=== PATIENT | female | born 1945 | race Caucasian/White ===

== ENCOUNTER → 2016-03-09 | Outpatient (CLI) | payer OTHER, BC ==
[~2016-03-09] MED LIST: ATOR-22 PO; ATOR-24 PO; PARO1TAB29 PO; SYN137 PO
== END | disposition home or self-care (01) ==
LOC: C.LABSPEC 15:13
PROVIDERS: ATTEND Family Medicine
DX: R31.9 Hematuria, unspecified (principal)

== ENCOUNTER → 2016-04-06 | Outpatient (CLI) | payer OTHER, BC | END | disposition home or self-care (01) | LOC: C.LABSPEC 13:00 | PROVIDERS: ATTEND Family Medicine | DX: R31.9 Hematuria, unspecified (principal) ==

== ENCOUNTER → 2016-04-18 | Outpatient (CLI) | payer OTHER, BC | END | disposition home or self-care (01) | LOC: C.LABSPEC 13:15 | PROVIDERS: ATTEND Family Medicine | DX: R31.9 Hematuria, unspecified (principal) ==

== ENCOUNTER → 2016-07-03 | Outpatient (CLI) | payer OTHER, BC ==
[2016-07-03 13:23] LABS: BASO % 0.3 %; BASO ABS # 0.02 K/uL (0-0.2); COMPLETE YES; EOS % 3.5 %; HEMATOCRIT 41.6 % (37-47); IG% 0.2 %; LYMPH % 41.1 %; LYMPH ABS # 2.73 K/uL (1.2-3.4); MEAN CELL VOLUME 90.2 fL (80-100); MEAN CORPUSCULAR HEMOGLOBIN 28.6 pg (25-34); MEAN CORPUSCULAR HGB CONC 31.7 g/dl (32-36); MONO % 10.1 %; NEUT % 44.8 %; PLATELET COUNT 271 K/uL (130-400); RED BLOOD COUNT 4.61 M/uL (4.2-5.4); WHITE BLOOD COUNT 6.65 K/uL (4.8-10.8)
[2016-07-03 13:48] LABS: ALT/SGPT 14 U/L (12-78); AST/SGOT 13 U/L (15-37); BLOOD UREA NITROGEN 14 mg/dl (7-18); BUN/CREATININE RATIO 18.4 (10-20); CARBON DIOXIDE 27 mmol/L (21-32); CHLORIDE 107 mmol/L (98-107); CHOLESTEROL 177 mg/dl (0-200); CREATININE 0.74 mg/dl (0.60-1.20); GLUCOSE 92 mg/dl (70-99); POTASSIUM 4.8 mmol/L (3.5-5.1); SODIUM 141 mmol/L (136-145); TRIGLYCERIDES 139 mg/dl (0-150); VERY LOW DENSITY LIPOPROT CALC 28 mg/dl
[2016-07-03 13:50] LABS: CALCIUM 9.3 mg/dl (8.5-10.1)
[2016-07-03 14:11] LABS: ALKALINE PHOSPHATASE 95 U/L (45-117); CHOLESTEROL/HDL RATIO 3.8; HDL CHOLESTEROL 47 mg/dl; LDL CHOLESTEROL CALCULATED 102 mg/dl; THYROID STIMULATING HORMONE 0.323 uIu/ml (0.300-4.500)
== END | disposition home or self-care (01) ==
LOC: C.LABSPEC 12:41
PROVIDERS: ATTEND Family Medicine
DX: E78.2 Mixed hyperlipidemia (principal); E03.9 Hypothyroidism, unspecified; J44.9 Chronic obstructive pulmonary disease, unspecified

== ENCOUNTER → 2016-07-09 | Outpatient (CLI) | payer OTHER, BC | END | disposition home or self-care (01) | LOC: C.LABSPEC 12:56 | PROVIDERS: ATTEND Family Medicine | DX: M54.5 Low back pain (principal); R39.11 Hesitancy of micturition ==

== ENCOUNTER → 2016-07-27 | Outpatient (CLI) | payer OTHER, BC ==
[2016-07-27 13:51] LABS: BASO % 0.2 %; BASO ABS # 0.02 K/uL (0-0.2); COMPLETE YES; EOS % 1.2 %; HEMATOCRIT 39.6 % (37-47); IG% 0.2 %; LYMPH ABS # 3.15 K/uL (1.2-3.4); MEAN CELL VOLUME 90.4 fL (80-100); MEAN CORPUSCULAR HEMOGLOBIN 29.5 pg (25-34); MEAN CORPUSCULAR HGB CONC 32.6 g/dl (32-36); MEAN PLATELET VOLUME 10.2 fL (7.4-10.4); MONO % 9.5 %; NEUT % 62.9 %; PLATELET COUNT 312 K/uL (130-400); RED BLOOD COUNT 4.38 M/uL (4.2-5.4); WHITE BLOOD COUNT 12.13 K/uL (4.8-10.8)
[2016-07-27 14:50] LABS: ALT/SGPT 43 U/L (12-78); BLOOD UREA NITROGEN 13 mg/dl (7-18); BUN/CREATININE RATIO 14.2 (10-20); CARBON DIOXIDE 24 mmol/L (21-32); CHLORIDE 103 mmol/L (98-107); CREATININE 0.92 mg/dl (0.60-1.20); GLUCOSE 90 mg/dl (70-99); POTASSIUM 4.1 mmol/L (3.5-5.1); SODIUM 136 mmol/L (136-145)
[2016-07-27 14:55] LABS: ALB/GLOB RATIO 0.6 (0.9-2); ALKALINE PHOSPHATASE 166 U/L (45-117); AST/SGOT 48 U/L (15-37)
[2016-07-27 14:56] LABS: CALCIUM 9.2 mg/dl (8.5-10.1)
== END | disposition home or self-care (01) ==
LOC: C.LABSPEC 13:13
PROVIDERS: ATTEND Family Medicine
DX: R05 Cough (principal); R06.02 Shortness of breath

== ENCOUNTER → 2016-08-01 | Outpatient (CLI) | payer OTHER, BC | END | disposition home or self-care (01) | LOC: C.LABSPEC 14:13 | PROVIDERS: ATTEND Family Medicine | DX: R30.0 Dysuria (principal) ==

== ENCOUNTER → 2016-11-15 | Outpatient (CLI) | payer OTHER, BC | END | disposition home or self-care (01) | LOC: C.LABSPEC 13:35 | PROVIDERS: ATTEND Family Medicine | DX: M54.5 Low back pain (principal) ==

== ENCOUNTER → 2017-01-03 | Outpatient (CLI) | payer OTHER, BC ==
[2017-01-03 12:54] LABS: BASO % 0.2 %; BASO ABS # 0.02 K/uL (0-0.2); COMPLETE YES; EOS % 2.7 %; HEMATOCRIT 40.9 % (37-47); IG% 0.1 %; LYMPH % 42.1 %; LYMPH ABS # 3.47 K/uL (1.2-3.4); MEAN CELL VOLUME 90.1 fL (80-100); MEAN CORPUSCULAR HEMOGLOBIN 29.1 pg (25-34); MEAN CORPUSCULAR HGB CONC 32.3 g/dl (32-36); MEAN PLATELET VOLUME 9.5 fL (7.4-10.4); MONO % 8.1 %; NEUT % 46.8 %; PLATELET COUNT 241 K/uL (130-400); RED BLOOD COUNT 4.54 M/uL (4.2-5.4); WHITE BLOOD COUNT 8.25 K/uL (4.8-10.8)
== END | disposition home or self-care (01) ==
LOC: C.LABSPEC 12:31
PROVIDERS: ATTEND Family Medicine
DX: E03.9 Hypothyroidism, unspecified (principal); E78.2 Mixed hyperlipidemia; J44.9 Chronic obstructive pulmonary disease, unspecified

== ENCOUNTER → 2017-01-04 | Outpatient (CLI) | payer OTHER, BC ==
[2017-01-04 13:44] LABS: ALT/SGPT 18 U/L (12-78); BLOOD UREA NITROGEN 19 mg/dl (7-18); BUN/CREATININE RATIO 20.8 (10-20); CARBON DIOXIDE 27 mmol/L (21-32); CHLORIDE 104 mmol/L (98-107); CHOLESTEROL 184 mg/dl (0-200); GLUCOSE 98 mg/dl (70-99); POTASSIUM 4.1 mmol/L (3.5-5.1); SODIUM 139 mmol/L (136-145); TRIGLYCERIDES 212 mg/dl (0-150); VERY LOW DENSITY LIPOPROT CALC 42 mg/dl
[2017-01-04 13:55] LABS: ALB/GLOB RATIO 0.9 (0.9-2); ALKALINE PHOSPHATASE 145 U/L (45-117); AST/SGOT 17 U/L (15-37); CHOLESTEROL/HDL RATIO 3.8; HDL CHOLESTEROL 49 mg/dl; LDL CHOLESTEROL CALCULATED 93 mg/dl
== END | disposition home or self-care (01) ==
LOC: C.LABSPEC 12:45
PROVIDERS: ATTEND Family Medicine
DX: E03.9 Hypothyroidism, unspecified (principal); E78.2 Mixed hyperlipidemia; J44.9 Chronic obstructive pulmonary disease, unspecified

== ENCOUNTER → 2017-07-05 | Outpatient (CLI) | payer OTHER, BC ==
[2017-07-05 13:59] LABS: BASO % 0.3 %; BASO ABS # 0.02 K/uL (0-0.2); HEMOGLOBIN 13.4 g/dL (12.0-16.0); IG# 0.01 K/uL (0.00-0.02); LYMPH % 40.9 %; LYMPH ABS # 2.71 K/uL (1.2-3.4); MEAN CELL VOLUME 90.7 fL (80-100); MEAN CORPUSCULAR HEMOGLOBIN 29.6 pg (25-34); MEAN CORPUSCULAR HGB CONC 32.7 g/dl (32-36); MEAN PLATELET VOLUME 9.8 fL (7.4-10.4); MONO % 8.4 %; MONO ABS # 0.56 K/uL (0.11-0.59); NEUT % 47.2 %; NEUT ABS # 3.13 K/uL (1.4-6.5); PLATELET COUNT 272 K/uL (130-400); RED CELL DISTRIBUTION WIDTH CV 13.7 % (11.5-14.5); RED CELL DISTRIBUTION WIDTH SD 45.1 fL (36.4-46.3); WHITE BLOOD COUNT 6.63 K/uL (4.8-10.8)
[2017-07-05 14:24] LABS: ALBUMIN 3.5 gm/dl (3.4-5.0); ALKALINE PHOSPHATASE 113 U/L (45-117); ALT/SGPT 15 U/L (12-78); AST/SGOT 20 U/L (15-37); BLOOD UREA NITROGEN 16 mg/dl (7-18); CALCIUM 8.7 mg/dl (8.5-10.1); CARBON DIOXIDE 26 mmol/L (21-32); CHOLESTEROL 194 mg/dl (0-200); CREATININE 0.92 mg/dl (0.60-1.20); GLUCOSE 92 mg/dl (70-99); LDL CHOLESTEROL CALCULATED 111 mg/dl; POTASSIUM 4.1 mmol/L (3.5-5.1); SODIUM 138 mmol/L (136-145); TOTAL PROTEIN 7.5 gm/dl (6.4-8.2)
== END | disposition home or self-care (01) ==
LOC: C.LABSPEC 12:48
PROVIDERS: ATTEND Family Medicine
DX: E78.2 Mixed hyperlipidemia (principal); J44.9 Chronic obstructive pulmonary disease, unspecified; E03.9 Hypothyroidism, unspecified

== ENCOUNTER 2022-10-10 05:13 | Observation (INO) ==
--- NOTE | 2022-09-25 12:44 | PAT Medication Instructions ---
Medication Instructions Date of Service September 25, 2022 Home Medications albuterol sulfate 90 mcg/actuation aerosol inhaler 1 inh inhalation QID PRN sob azithromycin 500 mg tablet 500 mg PO 3XWK calcium carbonate 600 mg-vitamin D3 5 mcg (200 unit) tablet 1 tab PO BID fluticasone propionate 230 mcg-salmeterol 21 mcg/actuation HFA inhaler (Advair HFA) 2 puff inhalation BID levothyroxine 100 mcg tablet (Synthroid) 100 mcg PO QAM lisinopril 10 mg tablet 10 mg PO QAM lovastatin 20 mg tablet 20 mg PO QAM prednisone 10 mg tablet 10 mg PO QAM teriparatide 20 mcg/dose (600 mcg/2.4 mL) subcutaneous pen injector (Forteo) 20 mcg subcut QPM umeclidinium 62.5 mcg/actuation blister powder for inhalation (Incruse Ellipta) 1 inh inhalation QAM venlafaxine 75 mg tablet,extended release 24 hr 75 mg PO QAM Continue as directed azithromycin 500 mg tablet 500 mg PO 3XWK ASK your prescriber and surgeon teriparatide 20 mcg/dose (600 mcg/2.4 mL) subcutaneous pen injector (Forteo) 20 mcg subcut QPM DO NOT take the morning of surgery calcium carbonate 600 mg-vitamin D3 5 mcg (200 unit) tablet 1 tab PO BID lisinopril 10 mg tablet 10 mg PO QAM Take morning of surgery With a small sip of water, OTHERWISE NOTHING TO EAT OR DRINK AFTER MIDNIGHT: albuterol sulfate 90 mcg/actuation aerosol inhaler 1 inh inhalation QID PRN sob (use if needed; please bring with you to hospital day of surgery if possible) fluticasone propionate 230 mcg-salmeterol 21 mcg/actuation HFA inhaler (Advair HFA) 2 puff inhalation BID levothyroxine 100 mcg tablet (Synthroid) 100 mcg PO QAM lovastatin 20 mg tablet 20 mg PO QAM prednisone 10 mg tablet 10 mg PO QAM umeclidinium 62.5 mcg/actuation blister powder for inhalation (Incruse Ellipta) 1 inh inhalation QAM venlafaxine 75 mg tablet,extended release 24 hr 75 mg PO QAM Take evening before surgery albuterol sulfate 90 mcg/actuation aerosol inhaler 1 inh inhalation QID PRN sob (if needed) calcium carbonate 600 mg-vitamin D3 5 mcg (200 unit) tablet 1 tab PO BID fluticasone propionate 230 mcg-salmeterol 21 mcg/actuation HFA inhaler (Advair HFA) 2 puff inhalation BID Other Notes If you have any questions please call us at [phone] or [phone] or [phone] or [phone]
--- NOTE | 2022-09-28 11:01 | Anesthesiology Consultation ---
Date of Service September 28, 2022 Assessment & Plan (1) Encounter for pre-operative examination: Chart Review Chart Review: Acceptable Risk for Surgery (pending PCP clearance 10/04/22 with response to CXR findings ) and Patient seen in Pre Admission Testing - Awaiting preop 10/04/22 (Dr. Srini Rubio) - please send optimization form re: abnormal CXR along with preop testing to PCP - Due to age and comorbidities- patient is NOT an ideal OPJ candidate Per PAT appt on 09/28/22, no recent Covid exposures or recent Covid positive tests. Pt had diarrhea and decreased appetite- resolved as of 09/23/22. Will leave to surgeon's discretion if preop Covid testing needed History Surgery Operation Date: 10/10/22 09:50 Proposed Procedures p Left Knee Total Knee Arthroplasty - Tramaine Hewitt MD Height/Weight Height: 5 ft 5.5 in Weight: 90.7 kg Allergies Allergy/AdvReac Type Severity Reaction Status Date / Time No Known Allergies Allergy Unknown Verified 09/25/22 11:06 Medications Home Medications Medication Instructions Recorded Confirmed Last Taken albuterol sulfate 90 mcg/actuation 1 inh inhalation QID PRN sob 09/25/22 09/25/22 Unknown aerosol inhaler azithromycin 500 mg tablet 500 mg PO 3XWK 09/25/22 09/25/22 Unknown calcium carbonate 600 mg-vitamin 1 tab PO DAILY 09/25/22 09/28/22 Unknown D3 5 mcg (200 unit) tablet fluticasone propionate 230 2 puff inhalation BID 09/25/22 09/25/22 Unknown mcg-salmeterol 21 mcg/actuation HFA inhaler (Advair HFA) levothyroxine 100 mcg tablet 100 mcg PO QAM 09/25/22 09/25/22 Unknown (Synthroid) lisinopril 10 mg tablet 10 mg PO QAM 09/25/22 09/25/22 Unknown lovastatin 20 mg tablet 20 mg PO QAM 09/25/22 09/25/22 Unknown prednisone 10 mg tablet 10 mg PO QAM 09/25/22 09/25/22 Unknown teriparatide 20 mcg/dose (600 20 mcg subcut QPM 09/25/22 09/25/22 Unknown mcg/2.4 mL) subcutaneous pen injector (Forteo) umeclidinium 62.5 mcg/actuation 1 inh inhalation QAM 09/25/22 09/25/22 Unknown blister powder for inhalation (Incruse Ellipta) venlafaxine 75 mg tablet,extended 75 mg PO QAM 09/25/22 09/25/22 Unknown release 24 hr Past Medical History Medical History (Updated 10/01/22 @ 09:35 by Josefina Albarran PA-C) Anemia Per records Anxiety Asthma "borderline asthma" well controlled with inhalers. Chronic steroid use Deep vein thrombosis December 2020 in right leg. treated at [facility] with anticoagulants. unknown cause. no longer on anticoagulants. Depression History of Helicobacter pylori infection ~05/2022 has since resolved Hyperlipidemia Hypertension Hypothyroidism Osteoarthritis Pulmonary embolism December 2020 in right lung. treated with anticoagulants and has since resolved. unknown cause, no longer on an anticoagulant Sarcoidosis [facility] pulmonary. reason for the abx treatment 3x weekly. Stable breathing Sleep apnea cpap at night Exercise / Class Metabolic Activity III < 4 Walking/Shop/Light housework (no chest pain or SOB with flat surface ambulation- uses cane for extra support; uses walker at home ) Past Family History Family History Other No family history of adverse response to anesthesia Past Surgical History Surgical History H/O vaginal hysterectomy History of appendectomy History of bladder surgery bladder sling History of bronchoscopy History of cholecystectomy History of colonoscopy History of esophagogastroduodenoscopy (EGD) History of tonsillectomy History of vitrectomy left eye Past Anesthesia History No Hx of Anesthesia Complications and No Family Hx of Anesthesia Complications History of PONV No Hx of PONV and No Hx of Motion Sickness Social History Smoking Status: Former smoker tobacco type: cigarettes Do You Dip or Chew Tobacco: No Smoking End Date: 1983 Hx Alcohol Use: No Hx Substance Use: No substance use type: does not use Review of Systems Patient denies chest pain, shortness of breath, dyspnea on exertion, reflux, cough, wheezing, palpitations. No hx of seizures, stroke, [place]. No hx of blood transfusions Physical Exam Vital Signs VITALS BP 132/72 P 81 TEMP 98.1 SP02 95% RESP 16 Constitutional no acute distress ENMT Mouth: no TMJ clicking Thyromental Distance: < 3.5 Finger Breadths (3.0) Mallampati Class: I Upper and lower full dentures Neck neck extension not limited Respiratory normal respiratory effort; no respiratory distress Auscultation: lungs clear to auscultation bilaterally; no wheezes Cardiovascular Rate/Rhythm: regular rate and regular rhythm Heart Sounds: no murmur Vessels: no carotid bruit Musculoskeletal Spine: + pain with cervical ROM (mild to shoulders ) Extremities: extremities normal to inspection Psychiatric Orientation: alert Lab Results Anesthesia Preop Results Results Anesthesia Widget: WBC 8.19 K/ul (4.8-10.8) 09/28/22 Hgb 11.9 g/dl (12.0-16.0) L 09/28/22 Hct 38.2 % (37.0-47.0) 09/28/22 Plt 310 K/uL (130-400) 09/28/22 Na 138 mmol/L (136-145) 09/28/22 K 4.7 mmol/L (3.5-5.1) 09/28/22 Cl 103 mmol/L (98-107) 09/28/22 CO2 28 mmol/L (21-32) 09/28/22 BUN 23 mg/dl (6-23) 09/28/22 Creat 0.90 mg/dl (0.6-1.2) 09/28/22 Glucose Level 121 mg/dl (70-99(Fasting)) H 09/28/22 PT 10.9 Seconds (9.0-12.0) 09/28/22 PTT 24.3 Seconds (21.0-31.0) 09/28/22 INR 1.0 (0.9-1.1) 09/28/22 Urine Color Yellow 09/28/22 Urine Appearance Clear (Clear) 09/28/22 Urine pH 6.0 (4.5-7.5) 09/28/22 Urine Specific [place] 1.006 (1.000-1.030) 09/28/22 Urine Protein Negative (Negative) 09/28/22 Urine Glucose (UA) Negative (Negative) 09/28/22 Urine Ketones Negative (Negative) 09/28/22 Urine Blood Negative (Negative) 09/28/22 Urine Nitrite Negative (Negative) 09/28/22 Urine Bilirubin Negative (Negative) 09/28/22 Urine Urobilinogen Negative (Negative) 09/28/22 Urine Leukocyte Esterase Negative (Negative) 09/28/22 Blood Type O Positive 09/28/22 Antibody Screen NEGATIVE 09/28/22 Testing Electrocardiogram Date: 09/28/22 Findings: + NSR @ (72bpm ) Normal EKG per cardio Chest X-Ray Date: 09/28/22 FINDINGS: No pneumothorax. No pleural effusions. The cardiac silhouette is top normal in size. There is a mildly tortuous thoracic aorta. The upper lung zones are clear. No evidence for pulmonary edema. Progressive densities within the right middle lobe and lingula. IMPRESSION: 1. Progressive densities within the right middle lobe and lingula. This favors scarring. However, follow-up nonemergent chest CT is recommended to exclude an underlying pulmonary opacity/lesion. 2. This report was called/faxed to the referring physician following dictation. Echocardiogram Date: 01/03/21 EF: 58% LV Function: normal RWMA: + none Other Findings: + diastolic dysfunction (Grade I ) Mild TR
--- NOTE | 2022-09-30 09:07 | History & Physical Report ---
Date of Service September 30, 2022 Assessment & Plan (1) Primary osteoarthritis of left knee: Plan: Treatment discussed with the patient. She has failed conservative measures. She has severe osteoarthritis left knee with a healed stress fracture. She would like to proceed with surgical invention. Risks, benefits and alternatives to surgery including but not limited to infection, DVT, pain, stiffness, need for revision surgery, damage to blood vessels, damage to nerves, PE, , were discussed with the patient and they wish to proceed. Plan for left total knee arthroplasty scheduled for October 10 at [facility] with Dr. Hewitt. We will plan on Xarelto postop for DVT prophylaxis due to history of DVT. Plan on home health PT. All questions answered. Patient follow-up postop. History of Present Illness Chief Complaint: Left knee pain Primary Care Provider: Srini Rubio DO 77-year-old female with past medical history significant for hypertension, asthma, hypothyroid, history of DVT who presents with ongoing left knee pain. Pain is interfering with her daily activities. She has failed conservative measures including bracing and injections. She would like to proceed with surgical intervention. Patient denies headaches, sweats, fevers, chills, double vision, blurred vision, cough, sore throat, dysphagia, chest pain, sob, wheezing, n/v/d/c, numbness, tingling, fatigue, urinary symptoms, mood disorders. ROS positive for left knee pain and stiffness. Allergies Allergy/AdvReac Type Severity Reaction Status Date / Time No Known Allergies Allergy Unknown Verified 09/25/22 11:06 Home Medications Medication Instructions Recorded Confirmed Type albuterol sulfate 90 mcg/actuation 1 inh inhalation QID PRN sob 09/25/22 09/25/22 History aerosol inhaler azithromycin 500 mg tablet 500 mg PO 3XWK 09/25/22 09/25/22 History calcium carbonate 600 mg-vitamin 1 tab PO DAILY 09/25/22 09/28/22 History D3 5 mcg (200 unit) tablet fluticasone propionate 230 2 puff inhalation BID 09/25/22 09/25/22 History mcg-salmeterol 21 mcg/actuation HFA inhaler (Advair HFA) levothyroxine 100 mcg tablet 100 mcg PO QAM 09/25/22 09/25/22 History (Synthroid) lisinopril 10 mg tablet 10 mg PO QAM 09/25/22 09/25/22 History lovastatin 20 mg tablet 20 mg PO QAM 09/25/22 09/25/22 History prednisone 10 mg tablet 10 mg PO QAM 09/25/22 09/25/22 History teriparatide 20 mcg/dose (600 20 mcg subcut QPM 09/25/22 09/25/22 History mcg/2.4 mL) subcutaneous pen injector (Forteo) umeclidinium 62.5 mcg/actuation 1 inh inhalation QAM 09/25/22 09/25/22 History blister powder for inhalation (Incruse Ellipta) venlafaxine 75 mg tablet,extended 75 mg PO QAM 09/25/22 09/25/22 History release 24 hr Past Med/Surg History Medical History Anemia Pt unaware Anxiety Asthma "borderline asthma" well controlled with inhalers. Chronic steroid use Deep vein thrombosis December 2020 in right leg. treated at [facility] with anticoagulants. unknown cause. no longer on anticoagulants. Depression History of Helicobacter pylori infection ~05/2022 has since resolved Hyperlipidemia Hypertension Hypothyroidism Osteoarthritis Pulmonary embolism December 2020 in right lung. treated with anticoagulants and has since resolved. unknown cause, no longer on an anticoagulant Sarcoidosis [facility] pulmonary. reason for the abx treatment 3x weekly. Stable breathing Sleep apnea cpap at night Surgical History H/O vaginal hysterectomy History of appendectomy History of bladder surgery bladder sling History of bronchoscopy History of cholecystectomy History of colonoscopy History of esophagogastroduodenoscopy (EGD) History of tonsillectomy History of vitrectomy left eye Family History Other No family history of adverse response to anesthesia Social History Smoking Status: Former smoker Second Hand Exposure: Yes ( smokes); Do You Dip or Chew Tobacco: No; Hx Alcohol Use: No Hx Substance Use: No Preferred Language: Armenian Communication Ability: Effective Brick Pointer Required: No Beliefs That Will Affect Care: None Current Living Situation: Spouse Feels Safe at Home: Yes Assistive Devices: CPAP, Denture - Upper, Denture - Lower, Glasses, Lift Chair and Walker Review of Systems All systems reviewed & are unremarkable except as noted in HPI & below Physical Exam Constitutional: well developed and well nourished; no acute distress Eyes: PERRL, conjunctivae normal, anicteric sclerae ENMT: external ear and nose normal, oropharynx normal Neck: trachea midline, no thyromegaly Respiratory: normal respiratory effort, lungs clear to auscultation Cardiovascular: RRR, no murmur, no edema Musculoskeletal: Left knee: Varus alignment. Mild effusion. Tenderness medial joint line. There is crepitation range of motion. Range of motion is 5 to 110 degrees. Stable valgus and varus stress test. Skin: no rashes, warm and dry Neurologic: patellar DTR's 2+ bilat, sensation intact Psychiatric: A+Ox3, euthymic affect Results & Data Diagnostic Findings Left knee radiographs demonstrate that she has severe arthritis of her knee, [id number] with subluxation medial compartment. She has tricompartmental arthritic changes with periarticular osteophytes. There is a transverse calcification/area of sclerosis proximal tibia consistent with a healing stress fracture.
[2022-10-10] MEDS ORDERED: ACETAMINOPHEN 500 MG TAB PO SCH (06:00)
[2022-10-10] MEDS ORDERED: GABAPENTIN 300 MG CAP PO SCH (06:00)
[2022-10-10] MEDS ORDERED: FAMOTIDINE 20 MG TAB PO SCH (06:00)
[2022-10-10] MEDS ORDERED: METOCLOPRAMIDE HCL 10 MG TABLET PO SCH (06:00)
[2022-10-10] MEDS ORDERED: dexAMETHasone 4 MG TAB PO SCH (06:00)
[2022-10-10] MEDS ORDERED: TRANEXAMIC ACID 1,000 MG **IV Pre-op IV SCH (06:00)
[2022-10-10] MEDS ORDERED: TRANEXAMIC ACID 1,000 MG **IV Intra-op IV SCH (06:00)
[2022-10-10] MEDS ORDERED: LR 500ML BOLUS, THEN 15ML/HR IV SCH (06:00)
[2022-10-10] MEDS ORDERED: CeleBREX 200 MG CAP PO SCH (06:00)
[2022-10-10] MEDS ORDERED: ROPIVACAINE 0.5% HCL/PF 150 MG, BUPIVACAINE 0.75% MPF 20 ML, EPINEPHrine 30MG/30ML (OR ... INSTIL SCH (06:00)
[2022-10-10] MEDS ORDERED: LR 60ML/HR IV SCH (06:00)
[2022-10-10] MEDS ORDERED: ceFAZolin 2000MG 2,000 MG/15 ML SYR IV SCH (06:00)
[2022-10-10] MEDS ORDERED: DEXAMETHASONE SOD INJ 4 MG/ML VIAL ONE (06:34)
[2022-10-10] MEDS ORDERED: BUPIVACAINE 0.5 % 5 MG/1 ML PF 10ML VIAL ONE (06:34)
[2022-10-10] MEDS ORDERED: EPINEPHrine INJ 1 MG/ML AMP ONE (06:34)
[2022-10-10] MEDS ORDERED: BUPIVACAINE 0.25% PF 30 ML VIAL ONE (06:34)
[2022-10-10] MEDS ORDERED: ORTHO JOINT ANESTHETIC ONE (06:43)
[2022-10-10] MEDS ORDERED: PROMETHAZINE HCL 6.25 MG in SODIUM CHLORIDE 0.9% 50 ML IV PRN (07:02)
[2022-10-10] MEDS ORDERED: ONDANSETRON INJ 2 MG/ML 2 ML VIAL IV PRN ×2 (07:02→11:46)
[2022-10-10] MEDS ORDERED: ePHEDrine sulfate 50 MG/ML AMP IV PRN (07:02)
[2022-10-10] MEDS ORDERED: ATROPINE SULFATE 0.1 MG/ML 10ML SYR IV PRN (07:02)
[2022-10-10] MEDS ORDERED: fentaNYL citrate PF 100 MCG/2 ML VIAL IV PRN (07:02)
--- NOTE | 2022-10-10 07:12 | History & Physical Bridge Note ---
Date of Service October 10, 2022 History & Physical Bridge Note I have examined the patient, reviewed the History & Physical and in the interval since the performance of the History & Physical I have noted the following changes of clinical significance: no changes noted
[2022-10-10] MEDS ORDERED: fentaNYL citrate PF 100 MCG/2 ML VIAL ONE (07:17)
--- NOTE | 2022-10-10 10:10 | Post Operative Brief Note ---
Immediate Post Op Note v1 Date of Surgery October 10, 2022 Pre & Post Diagnosis Operation Date: 10/10/22 07:00 Pre-Op Diagnosis: Left Knee Osteoarthritis, History stress fracture proximal tibia Post-Op Diagnosis: Left Knee Osteoarthritis., History stress fracture proximal tibia I identified the patient and participated in the time-out.: Yes Procedure Operation Date: 10/10/22 07:00 Actual Procedures p Left Knee Total Knee Arthroplasty(Left), sarah and Acticoat superficial wound VAC application - Tramaine Hewitt MD Surgeon Tramaine Hewitt MD X Ray Service Technician Bartolo HAMLIN Estimated Blood Loss 5 Findings Consistent with Post-Op Diagnosis Specimens bone cuts Drains Hemovac Drain (dual trocar) Anesthesia Type MAC Spinal Regional Complications none Disposition Accompanied Patient To Recovery: No Disposition: Recovery Room Overlapping Procedure I was immediately available: during the entire case.
--- NOTE | 2022-10-10 10:22 | Operative Report ---
Post Operative Report Pre & Post Diagnosis Operation Date: 10/10/22 07:00 Pre-Op Diagnosis: Left Knee Osteoarthritis, history stress fracture proximal medial tibial plateau Post-Op Diagnosis: Left Knee Osteoarthritis, history stress fracture proximal medial tibial plateau I identified the patient and participated in the time-out.: Yes Procedure Operation Date: 10/10/22 07:00 Actual Procedures p Left Knee Total Knee Arthroplasty(Left), Sarah and Acticoat superficial wound VAC application - Tramaine Hewitt MD Surgeon Tramaine Hewitt MD Social Service Coordinator Bartolo HAMLIN Estimated Blood Loss 5 Findings Consistent with Post-Op Diagnosis Specimens bone cuts Drains Hemovac Anesthesia Type MAC Spinal Regional Complications none Disposition Disposition: Recovery Room Indications 77-year-old female with severe bilateral osteoarthritis with recent increase symptoms left knee due to a proximal medial tibial plateau stress fracture. The stress fracture is treated for 3 months to allow healing prior to proceeding with knee replacement surgery. The radiographs demonstrate severe tricompartmental osteoarthritis [id number] in medial and lateral compartments with neutral alignment Description of Procedure patient taken to the operating room the size under Spinal MAC regional block anesthesia. Patient was placed supine on the operating table. A pneumatic tourniquet was placed about the left upper obese thigh. The left lower extremity was prepped and draped in sterile fashion. Knee exam demonstrated 0 through 125 degrees range of motion, [id number] crepitation. Moderate effusion. No pseudolaxity. The leg was elevated exsanguinated with an Esmarch bandage and pneumatic tourniquet was raised to 350 millimeters of mercury. Skin incised sharply in longitudinal fashion. Subcutaneous flaps elevated. Incision was made through the medial retinaculum extending up in the mid third of the quadriceps tendon and down to the medial tibial tubercle. Intra-articular findings demonstrated severe tricompartmental osteoarthritis [id number] with eburnated bone medial and lateral compartments with complete notch stenosis chronic ACL tear medial and lateral meniscus tears. The [employer] FXn total knee arthroplasty system was used. To expose the knee the infrapatellar fat pad was resected. The meniscal remnants and cruciate ligaments were resected. The anterior fat pad over the femur in the area of the location of the anterior flange of the femoral component was resected. The lateral synovial bands were released. The femur was exposed. An intramedullary drill hole was made into the canal. A guide edelmira was placed. Distal femoral cutting guide was adjusted to resect a 5 degree valgus cut with 8 millimeters distal femur resected. The knee was extended and a subperiosteal peel lateral release was performed around the patella. Patella width was measured and width was reproduced using a parth ehand cut technique and a 36 x 10 symmetrical patella component. The 3 drill holes were made and the excess lateral facet was beveled off to prevent any impingement. Attention was taken back to the femur which was exposed with retractors and the femoral sizing guide was pinned in position. The drill holes were placed in 3 of external rotation to match the epicondylar axis. The femur sized for a 5 component. The 4-in-1 cutting block was placed and then the anterior posterior and chamfer cuts are made. The tibia was then subluxed. The external tibial cutting guide was adjusted to make a perpendicular cut to the long axis of the tibia below the most deficient bone loss side. Cut was adjusted for slope. A lamina rivet hole machine operator was used and the flexion extension gaps were balanced. A medial and posterior medial release were required. All posterior osteophytes removed. All meniscal remnants were resected. The tibia exposed and the trial tibial component size 4 was externally rotated in line with the tibial tubercle and pinned in position. The punch for stem was used. The notch cutting device was centered appropriately and the femoral notch cut was made. The femoral trial was inserted. Trial tibial inserts were placed and size 13 gave balanced ligaments through flexion and extension. Patella tracking was assessed. The patella tracked centrally. The trial components were then removed and the orthomix anesthetic cocktail was injected per protocol. The knee was then copiously irrigated with pulsatile lavage saline solution. Final components were then cemented with Refobacin cement. Final components were [place] triathlon size 5 left posterior stabilized femoral component, a 4 universal tibial baseplate with a 12 x 50 mm cemented stem and a 13 mm tibial posterior stabilized bearing insert with a 36 x 10 symmetrical patella. After the cement cured the Betadine soak was used for 3 minutes. Further pulsatile lavage irrigation was then performed and 2 Hemovac drains were brought out laterally. The quadriceps tendon and medial retinaculum were closed with figure of 8 #1 Vicryl sutures. The knee was taken through full range of motion and the repair was secure. Knee range of motion was 0 through 130 degrees. The subcutaneous tissues were closed with 2-0 Vicryl sutures. Skin was closed with bettina. A sarah and Acticoat superficial wound VAC was applied. The patient tolerated the procedure well. Bartolo HAMLIN was my physician reading assistant who participated as assistant director of financial aid and was involved in all aspects of the procedure including patient positioning prepping and draping,leg positioning ,soft tissue retraction and instrument management and participated in the closing and application of the sarah and Acticoat superficial wound VAC and will participate in postoperative care of the patient. The patient tolerated the procedure well. I attest to the content of the Intraoperative Record and any orders documented therein. Any exceptions are noted below.
--- NOTE | 2022-10-10 10:36 | XRay Report ---
XR knee LT 1 or 2V routine CLINICAL HISTORY: Surgical Post Op TECHNIQUE: 2 views of the left knee were obtained. Comparison: Comparison is made to MRI right knee 06/29/2022 FINDINGS: Patient is status post total knee arthroplasty with expected postsurgical changes including soft tiss ue swelling and subcutaneous emphysema. No periarticular lucency or hardware fracture is seen. IMPRESSION: Expected postoperative appearance status post placement of total knee arthroplasty. ACT 112: Negative or not required by law. Electronically signed by: Eliezer Freeman M.D. 10/10/2022 10:35 AM
[2022-10-10] MEDS ORDERED: NALOXONE HCL 0.4 MG/1 ML VIAL/CARP IV PRN (11:46)
[2022-10-10] MEDS ORDERED: oxyCODONE HCL IR 5 MG TAB (IMMEDIATE RELEASE) PO PRN (11:46)
[2022-10-10] MEDS ORDERED: HYDROmorphone INJ 0.5 MG/0.5 ML SYR IV PRN (11:46)
[2022-10-10] MEDS ORDERED: bisacodyL 10 MG SUPP PR PRN (11:46)
[2022-10-10] MEDS ORDERED: SODIUM CHLORIDE 0.9% 1000ML 1,000 ML IV SCH (11:46)
[2022-10-10] MEDS ORDERED: METOCLOPRAMIDE HCL INJ 5 MG/ML 2 ML VIAL IV PRN (11:46)
[2022-10-10] MEDS ORDERED: ALBUTEROL HFA 8 GM INHALER INH PRN (11:46)
[2022-10-10] MEDS ORDERED: MAGNESIUM HYDROXIDE SUSP 30 ML UDC PO PRN (11:46)
--- NOTE | 2022-10-10 11:56 | Anesthesiology Progress Note ---
Date of Service October 10, 2022 Anesthesia Post Procedure Vital Signs Vital Signs: Temp Pulse Pulse Resp BP Pulse Ox O2 Del Method 10/10/22 11:27 36.5 C 10/10/22 11:10 70 14 118/56 L 96 Nasal Cannula 10/10/22 10:55 62 17 128/61 95 Nasal Cannula 10/10/22 10:45 60 17 135/64 95 Nasal Cannula 10/10/22 10:35 36.5 C 70 17 132/69 94 Nasal Cannula 10/10/22 10:25 68 17 104/83 94 Nasal Cannula 10/10/22 10:15 66 17 124/71 98 Oxymask 10/10/22 10:07 36.8 C 80 18 129/69 98 Oxymask 10/10/22 05:40 Room Air 10/10/22 05:40 36.5 C 71 20 164/76 H 96 Room Air O2 Flow Rate 10/10/22 11:27 10/10/22 11:10 2 10/10/22 10:55 2 10/10/22 10:45 2 10/10/22 10:35 2 10/10/22 10:25 2 10/10/22 10:15 5 10/10/22 10:07 5 10/10/22 05:40 10/10/22 05:40 Pain Intensity Left Knee: Pain Intensity: 0 Transfer of Care Handoff Completed per policy Notes Mental Status: alert / awake / arousable Patient Amnestic to Procedure: Yes Nausea / Vomiting: adequately controlled Pain: adequately controlled Airway Patency, RR, SpO2: stable & adequate BP & HR: stable & adequate Hydration State: stable & adequate Neuraxial Anesthesia: was administered and sensory block is resolving Anesthetic Complications: no major complications apparent and Pt Satisfied with anesthetic care
--- NOTE | 2022-10-10 12:01 | Hospitalist Consultation ---
Date of Consultation October 10, 2022 Assessment & Plan (1) Status post left knee replacement: -Pain management, perioperative abx, and DVT PPX per the primary team -Will discontinue IV fluids as she is stable and able to eat and drink; her nurse was made aware -Agree with am CBC and BMP tomorrow, we will follow -Adding daily famotidine for stress ulcer PPX due to chronic steroid use -Patient will be started on Xarelto for DVT PPX tomorrow per the primary team's orders, monitor for bleeding -Thank you for allowing us to participate in the care of this patient, please reach out with any questions or concerns -Medicine will continue to follow (2) COPD (chronic obstructive pulmonary disease): -Currently stable on 2L NC, this can continue to be weaned to RA -Likely required O2 after her procedure due to her COPD and MALINDA status -Lungs with mild expiratory wheezing, will order scheduled DuoNebs -Continue home breathing treatments -Incentive spirometry -Continue chronic Azithromycin and Prednisone (3) Sleep apnea: -Patient does use HS CPAP, did not bring her own machine -Is not interested in using one of ours while admitted, monitor for HS hypoxia (4) Hypothyroidism: -Continue levothyroxine (5) Hypertension: -Stable -Agree with restarting lisinopril tomorrow if hemodynamically stable and renal function is stable (6) Osteoporosis: -Continue Forteo Plan The patient was discussed with Dr. Girard at the time of the consult Supervising Physician Co-Signing Physician Notes I personally saw and examined the patient. I verified all chinchilla points and agree with Ricky Ramsey PA-C with the following exceptions and/or additions: 77 year old female POD#0 left total knee arthroplasty. Doing well post operatively. On 2LPM O2 but not short of breath. HS RRR, no murmurs, Chest CTAB, Abdo SNT No changes to plan above History of Present Illness Reason for Consultation: Post op medical management Requesting Physician: Tramaine Hewitt MD Attending Physician: Dr. Alek Girard History of Present Illness Sherry is a 77 year old female with a PMH significant for COPD, hypothyroidism, HTN, hyperlipidemia, depression, and MALINDA who presented to the [facility] OR on 10/10 for Left Knee Total Knee Arthroplasty with Dr. Hewitt. Per review of the patient's vitals, she has been stable on 2L NC and otherwise has had vitals WNL. Per the operative report, EBL was listed as 5 cc, anesthesia was listed as "[facility]", and there were no reported intraoperative complications. At the time of the exam the patient was sitting in bed in no acute distress with her sitting bedside. The patient states she is feeling well after the procedure. She denies significant pain at this time and denies any other complaints. She confirms that she follows with [facility] for her COPD. She is on chronic prednisone therapy due to her COPD. She explains that she was placed on Azithromycin 3 times weekly from her [employer] due to a chronic fungal lung infection. She does us HS CPAP, did not bring her machine, and is not interested in using one of ours while admitted. Please refer to Dr. Girard's attestation for any changes to the treatment plan Allergies Allergy/AdvReac Type Severity Reaction Status Date / Time No Known Allergies Allergy Unknown Verified 10/10/22 05:36 Home Medications Medication Instructions Recorded Confirmed Type albuterol sulfate 90 mcg/actuation 1 inh inhalation QID PRN sob 09/25/22 10/10/22 History aerosol inhaler azithromycin 500 mg tablet 500 mg PO 3XWK 09/25/22 10/10/22 History calcium carbonate 600 mg-vitamin 1 tab PO DAILY 09/25/22 10/10/22 History D3 5 mcg (200 unit) tablet fluticasone propionate 230 2 puff inhalation BID 09/25/22 10/10/22 History mcg-salmeterol 21 mcg/actuation HFA inhaler (Advair HFA) levothyroxine 100 mcg tablet 100 mcg PO QAM 09/25/22 10/10/22 History (Synthroid) lisinopril 10 mg tablet 10 mg PO QAM 09/25/22 10/10/22 History lovastatin 20 mg tablet 20 mg PO QAM 09/25/22 10/10/22 History prednisone 10 mg tablet 10 mg PO QAM 09/25/22 10/10/22 History teriparatide 20 mcg/dose (600 20 mcg subcut QPM 09/25/22 10/10/22 History mcg/2.4 mL) subcutaneous pen injector (Forteo) umeclidinium 62.5 mcg/actuation 1 inh inhalation QAM 09/25/22 10/10/22 History blister powder for inhalation (Incruse Ellipta) venlafaxine 75 mg tablet,extended 75 mg PO QAM 09/25/22 10/10/22 History release 24 hr acetaminophen 500 mg tablet 1,000 mg PO Q8 #60 tabs 10/11/22 Rx (Tylenol Extra Strength) oxycodone 5 mg tablet 5 - 10 mg PO .Q4h-6h PRN pain #30 10/11/22 Rx tabs rivaroxaban 10 mg tablet (Xarelto) 10 mg PO DAILY #30 tabs 10/11/22 Rx Patient History Medical History (Updated 10/10/22 @ 12:35 by Ricky Ramsey PA-C) Anemia Per records Anxiety Asthma "borderline asthma" well controlled with inhalers. Chronic steroid use Deep vein thrombosis December 2020 in right leg. treated at [facility] with anticoagulants. unknown cause. no longer on anticoagulants. Depression History of Helicobacter pylori infection ~05/2022 has since resolved Hyperlipidemia Hypertension Hypothyroidism Osteoarthritis Pulmonary embolism December 2020 in right lung. treated with anticoagulants and has since resolved. unknown cause, no longer on an anticoagulant Sarcoidosis [facility] pulmonary. reason for the abx treatment 3x weekly. Stable breathing Sleep apnea cpap at night Surgical History (Updated 10/10/22 @ 12:35 by Ricky Ramsey PA-C) H/O vaginal hysterectomy History of appendectomy History of bladder surgery bladder sling History of bronchoscopy History of cholecystectomy History of colonoscopy History of esophagogastroduodenoscopy (EGD) History of tonsillectomy History of vitrectomy left eye Family History Other No family history of adverse response to anesthesia Social History Smoking Status: Former smoker Smoking End Date: 1983; Second Hand Exposure: Yes ( smokes); Do You Dip or Chew Tobacco: No; Tobacco Cessation Education Requested by Patient: No Hx Alcohol Use: No Hx Substance Use: No Preferred Language: Syriac Communication Ability: Effective [employer] Operations Superintendent Required: No Beliefs That Will Affect Care: None Current Living Situation: Spouse Other Information That Helps Us Care for You: No Feels Safe at Home: Yes Safety Concerns: Feels Safe At This Time Assistive Devices: Walker Physical Exam Physical Exam: Physical Exam: General: In no acute distress, stated age, well-nourished, good hygiene HEENT: Normocephalic, atraumatic, no scleral icterus, pupils around round, symmetrical, and reactive to light, currently on 2L NC, moist mucus membranes, trachea midline, no thyromegaly Chest/Pulm: No respiratory distress, symmetrical chest expansion, expiratory wheezing noted in the BL upper and lower lung blandon Cardiac: RRR, no murmurs noted Abdomen: Negative for ascites and bruising, normoactive bowel sounds, soft, non-tender to palpation throughout Musculoskeletal: Bl LE's are currently wrapped with brace and drain in place on the LLE without signs of malfunction, intact sensation and motor function in the BL feet and toes Extremities: Radial, dorsalis pedis, and posterior tibial pulses are intact and symmetrical, no edema noted in the BL LE's Skin: Warm, dry, no rashes , lesions, or scars noted Neuro: Alert and oriented to person, place, month, year, and president, no focal defects, no tremors noted Psych: No acute distress, calm and cooperative during the exam Results & Data Results & Data Vital Signs (Past 12 Hours) Vital Signs Temp Pulse Pulse Resp BP Pulse Ox O2 Del Method 10/10/22 11:27 36.5 C 10/10/22 11:10 70 14 118/56 L 96 Nasal Cannula 10/10/22 10:55 62 17 128/61 95 Nasal Cannula 10/10/22 10:45 60 17 135/64 95 Nasal Cannula 10/10/22 10:35 36.5 C 70 17 132/69 94 Nasal Cannula 10/10/22 10:25 68 17 104/83 94 Nasal Cannula 10/10/22 10:15 66 17 124/71 98 Oxymask 10/10/22 10:07 36.8 C 80 18 129/69 98 Oxymask 10/10/22 05:40 Room Air 10/10/22 05:40 36.5 C 71 20 164/76 H 96 Room Air O2 Flow Rate 10/10/22 11:27 10/10/22 11:10 2 10/10/22 10:55 2 10/10/22 10:45 2 10/10/22 10:35 2 10/10/22 10:25 2 10/10/22 10:15 5 08/23/23 10:07 5 10/10/22 05:40 10/10/22 05:40 Diagnostic Findings Knee X-Ray 10/10/22 10:08 XR knee LT 1 or 2V routine CLINICAL HISTORY: Surgical Post Op TECHNIQUE: 2 views of the left knee were obtained. Comparison: Comparison is made to MRI right knee 06/29/2022 FINDINGS: Patient is status post total knee arthroplasty with expected postsurgical changes including soft tissue swelling and subcutaneous emphysema. No periarticular lucency or hardware fracture is seen. IMPRESSION: Expected postoperative appearance status post placement of total knee arthroplasty. ACT 112: Negative or not required by law. Electronically signed by: Eliezer Freeman M.D. 10/10/2022 10:35 AM PG Care Time/CCT Total # of Minutes Spent Total Time Spent with Patient: Total time spent is greater than 50% in coordination of care (as documented) at patient's floor/unit and/or counseling patient: [place] [address] IN/OBS CONSULT LVL 3,45M Patient Type New Medical Decision Making High Complexity Diagnoses Status post left knee replacement Z96.652 COPD (chronic obstructive pulmonary disease) J44.9 Sleep apnea G47.30 Hypothyroidism E03.9 Hypertension I10 Osteoporosis M81.0
[2022-10-10] MEDS ORDERED: AZITHROMYCIN 250 MG TAB PO SCH (12:30)
[2022-10-10] MEDS: FAMOTIDINE 20 MG in SYRINGE 3 ML IV SCH (13:10)
[2022-10-10] MEDS: ACETAMINOPHEN 500 MG TAB PO SCH ×2 (13:10→21:08)
[2022-10-10] MEDS ORDERED: ALBUT/IPRATROP 3MG/0.5MG NEB 3 ML VIAL NEB SCH (15:00)
[2022-10-10] MEDS: ceFAZolin 2000MG 2,000 MG/15 ML SYR IV SCH ×2 (16:17→23:40)
[2022-10-10] MEDS ORDERED: SENNA 8.6 MG TAB PO SCH (21:00)
[2022-10-10] MEDS: DOCUSATE SODIUM 100 MG CAP PO SCH (21:07)
[2022-10-11] MEDS: ACETAMINOPHEN 500 MG TAB PO SCH (05:46)
[2022-10-11 06:29] LABS: Hematocrit (blood only) 31.2 % (37.0-47.0); Mean Corpuscular Hemoglobin 29.2 pg (25.0-34.0); Mean Corpuscular Hgb Conc 32.1 g/dL (32.0-36.0); Mean Corpuscular Volume 91.2 fL (80.0-100.0); Mean Platelet Volume 9.9 fL (9.4-12.4); Platelet Count 226 K/uL (130-400); RDW Coefficient of Variation 13.4 % (11.5-14.5); RDW Standard Deviation 44.6 fL (36.4-46.3); Red Blood Count 3.42 M/uL (4.20-5.40); White Blood Count 14.49 K/ul (4.8-10.8)
[2022-10-11] MEDS ORDERED: LEVOTHYROXINE SODIUM 100 MCG TABLET PO SCH (06:30)
[2022-10-11 06:43] LABS: Calcium 9.1 mg/dl (8.6-10.3); Creatinine Clr Calc Pharmacy 43.1 ml/min; Est GFR (African American) 50.8 ml/min; Est GFR (Non-African American) 43.8 ml/min; Potassium 4.6 mmol/L (3.5-5.1)
--- NOTE | 2022-10-11 07:45 | Orthopedic Progress Note ---
Date of Service October 11, 2022 Assessment & Plan (1) Status post left knee replacement: Plan: Postop day 1 left total knee arthroplasty -PT/OT -Pain management as written -DVT prophylaxis: SCDs, teds, Xarelto 10 mg daily -AM labs: Leukocytosis likely reactive due to surgical stress versus dilutional. Hemoglobin 10 from 11.9. Acute blood loss anemia due to surgical loss versus dilutional. Patient is asymptomatic. -Discharge planning: Plan on discharge home with home health. Plan on discharge home today if continues to go well and does well with therapy. Admission and Anticipated Discharge Date Admission Date: October 10, 2022 Subjective Patient is postop day 1 left total knee. She is doing well this morning. No complaints. Minimal pain. Denies any chest pain, shortness of breath, nausea/vomiting/diarrhea, headaches or dizziness. Has been ambulating to the bathroom without difficulty. Review of Systems Review of Systems: All systems reviewed & are unremarkable except as noted in Subjective Physical Exam Physical Exam: Left knee: Dressing is clean, dry, intact. Toes are mobile with good dorsiflexion. No calf tenderness. Able to do a straight leg raise. Distally neurovascular status and sensation is grossly intact. Constitutional: WD/WN, vitals as above Results & Data Vital Signs (Past 12 Hours) Vital Signs Temp Pulse Resp BP Pulse Ox O2 Del Method O2 Flow Rate 10/11/22 07:09 36.4 C L 80 18 169/81 H 93 Room Air 10/11/22 03:23 36.7 C 77 18 162/69 H 93 Room Air 10/10/22 22:47 36.5 C 62 18 118/53 L 93 Room Air 10/10/22 21:00 Nasal Cannula 2 Laboratory Results Lab Results 10/11/22 10/11/22 Range/Units 05:53 05:53 WBC 14.49 H (4.8-10.8) K/ul RBC 3.42 L (4.20-5.40) M/uL Hgb 10.0 L (12.0-16.0) g/dl Hct 31.2 L (37.0-47.0) % MCV 91.2 (80.0-100.0) fL MCH 29.2 (25.0-34.0) pg MCHC 32.1 (32.0-36.0) g/dL RDW Std Deviation 44.6 (36.4-46.3) fL RDW Coeff of Umesh 13.4 (11.5-14.5) % Plt Count 226 (130-400) K/uL MPV 9.9 (9.4-12.4) fL Sodium 138 (136-145) mmol/L Potassium 4.6 (3.5-5.1) mmol/L Chloride 105 (98-107) mmol/L Carbon Dioxide 27 (21-32) mmol/L Anion Gap 6 (3-11) BUN 26 H (6-23) mg/dl Creatinine 1.18 (0.6-1.2) mg/dl Est Cr Clr Drug Dosing 43.1 ml/min Est GFR ( Amer) 50.8 ml/min Est GFR (Non-Af Amer) 43.8 ml/min BUN/Creatinine Ratio 22.0 H (10-20) Glucose 132 H (70-99(Fasting)) mg/dl Calcium 9.1 (8.6-10.3) mg/dl Diagnostic Findings XR knee LT 1 or 2V routine CLINICAL HISTORY: Surgical Post Op TECHNIQUE: 2 views of the left knee were obtained. Comparison: Comparison is made to MRI right knee 06/29/2022 FINDINGS: Patient is status post total knee arthroplasty with expected postsurgical changes including soft tissue swelling and subcutaneous emphysema. No periarticular lucency or hardware fracture is seen. IMPRESSION: Expected postoperative appearance status post placement of total knee arthroplasty.
--- NOTE | 2022-10-11 08:27 | Hospitalist Progress Note ---
Date of Service October 11, 2022 Assessment & Plan (1) Status post left knee replacement: Plan: POD# 1 s/p Left Knee Total Knee Arthroplasty(Left), Jesus and Acticoat superficial wound VAC application - Tramaine Hewitt MD EBL 5cc, hemovac 175cc -- timing to remove hemovac per primary service WBC elevation likely stress from surgery/steroids, afebrile Hgb 11.9--> 10.0, acute blood loss anemia from surgery as well as dilutional from IVF suspected No lightheaded/dizziness/CP/SOB Pain management, bowel regimen, PT/OT per primary service DVT proph: Xarelto to begin 10/11 Per patient, anticipating discharge today after eval by therapy and will complete OPPT closer to home in [place] (2) COPD (chronic obstructive pulmonary disease): Plan: 2L post op, weaned to room air faint wheezing but not reporting any issues Did not use her CPAP inpatient and preferred to use once dc home Duonebs/home breathing tx provided Continued home chronic azithromycin/prednisone ON ROOM AIR THIS MORNING Appears Vit D checked in June and was <7, appears on calcium carbonate-Vit D at home --> she reports she was on something for a month (? 50,000 weekly) but if this was not the case likely would benefit then daily supplementation thereafter--> defer to PCP in follow-up (3) Sleep apnea: Plan: Patient does use HS CPAP, did not bring her own machine Is not interested in using one of ours while admitted, monitor for HS hypoxia --> weaned to RA as above (4) Hypothyroidism: Plan: -Continue levothyroxine ? 100mcg vs 125mcg -- she is unsure however takes what her doctor rxs she states. PCP nots 125mcg dose--> to continue whatever they have prescribed most recently/follow up at discharge (5) Hypertension: Plan: Stable, elevated Cr stable/BP elevated and eating/drinking, no issues w/ urination Lisinopril continued this morning for BP 169/81 but suspect some aspect related to pain (6) Osteoporosis: Plan: -Continue Forteo, Vit D as above Plan Thank you for allowing hospitalist service to participate in the care of Ms Taylor. Hospitalist service will sign off at this time. Please call with any questions/concerns Admission and Anticipated Discharge Date Admission Date: October 10, 2022 Supervising Physician Co-Signing Physician Notes The patient was not seen by me. The chart was reviewed. Case discussed with BOUBACAR Rodrigues. Agree with assessment and plan Subjective eval this morning, ambulating back from using the bathroom. pain controlled. eating/drinking, no fever/chills/chest pain/shortness of breath/dizziness. Anxious about getting therapy in here to see her so that she can call her ride for discharge. Endorsed she does have walker, was instructed pre-op to have this in place. Needs to see PT and CM to arrange outpatient therapy. Reports having a great experience. Reports she did take higher dose vitamin D over the summer when inquired about prior lows. Questions/concerns addressed at this time. Physical Exam Physical Exam: General: WN/WD female walking back from bathroom, NAD HEENT: head normocephalic, atraumatic, mmm, trachea midline Resp: no distress/cough, faint wheezing end expiratory, but no crackles/rales, on room air CV: RRR, no significant m/r/g, trace pedal edema, calves nontender GI: +BS, soft/NT : no up MSK/Neuro: dressing to LEFT knee c/d/i, hemovac w/ bloody drainage, calves supple, trace edema, calves nontender, pulses palpable, strength intact bilaterally, NVI Psych: AOx3, cooperative with exam Results & Data Results & Data Vital Signs (Past 12 Hours) Vital Signs Temp Pulse Resp BP Pulse Ox O2 Del Method O2 Flow Rate 10/11/22 07:09 36.4 C L 80 18 169/81 H 93 Room Air 10/11/22 03:23 36.7 C 77 18 162/69 H 93 Room Air 10/10/22 22:47 36.5 C 62 18 118/53 L 93 Room Air 10/10/22 21:00 Nasal Cannula 2 Laboratory Results 10/11/22 10/11/22 Range/Units 05:53 05:53 WBC 14.49 H (4.8-10.8) K/ul RBC 3.42 L (4.20-5.40) M/uL Hgb 10.0 L (12.0-16.0) g/dl Hct 31.2 L (37.0-47.0) % MCV 91.2 (80.0-100.0) fL MCH 29.2 (25.0-34.0) pg MCHC 32.1 (32.0-36.0) g/dL RDW Std Deviation 44.6 (36.4-46.3) fL RDW Coeff of Umesh 13.4 (11.5-14.5) % Plt Count 226 (130-400) K/uL MPV 9.9 (9.4-12.4) fL Sodium 138 (136-145) mmol/L Potassium 4.6 (3.5-5.1) mmol/L Chloride 105 (98-107) mmol/L Carbon Dioxide 27 (21-32) mmol/L Anion Gap 6 (3-11) BUN 26 H (6-23) mg/dl Creatinine 1.18 (0.6-1.2) mg/dl Est Cr Clr Drug Dosing 43.1 ml/min Est GFR ( Amer) 50.8 ml/min Est GFR (Non-Af Amer) 43.8 ml/min BUN/Creatinine Ratio 22.0 H (10-20) Glucose 132 H (70-99(Fasting)) mg/dl Calcium 9.1 (8.6-10.3) mg/dl Diagnostic Findings Knee X-Ray 10/10/22 10:08 XR knee LT 1 or 2V routine CLINICAL HISTORY: Surgical Post Op TECHNIQUE: 2 views of the left knee were obtained. Comparison: Comparison is made to MRI right knee 06/29/2022 FINDINGS: Patient is status post total knee arthroplasty with expected postsurgical changes including soft tissue swelling and subcutaneous emphysema. No periarticular lucency or hardware fracture is seen. IMPRESSION: Expected postoperative appearance status post placement of total knee arthroplasty. ACT 112: Negative or not required by law. Electronically signed by: Eliezer Freeman M.D. 10/10/2022 10:35 AM PG Care Time/CCT Total # of Minutes Spent Total Time Spent with Patient: Total time spent is greater than 50% in coordination of care (as documented) at patient's floor/unit and/or counseling patient: Coding Level of Care Code 88128 SUB INP/OBS CARE 2/35MIN Diagnoses Status post left knee replacement Z96.652 COPD (chronic obstructive pulmonary disease) J44.9 Sleep apnea G47.30 Hypothyroidism E03.9 Hypertension I10 Osteoporosis M81.0
[2022-10-11] MEDS: DOCUSATE SODIUM 100 MG CAP PO SCH (08:36)
[2022-10-11] MEDS: FAMOTIDINE 20 MG in SYRINGE 3 ML IV SCH ×2 (08:42→09:14)
[2022-10-11] MEDS ORDERED: MULTIVITAMIN TAB PO SCH (09:00)
[2022-10-11] MEDS ORDERED: LOVASTATIN 20 MG TAB PO SCH (09:00)
[2022-10-11] MEDS ORDERED: RIVAROXABAN 10 MG TABLET PO SCH (09:00)
[2022-10-11] MEDS ORDERED: UMECLIDINIUM BROMIDE 62.5MCG/BLISTER 7 PUFFS/INHALER INH SCH (09:00)
[2022-10-11] MEDS ORDERED: FLUTICASONE/VILANTEROL 200/25MCG 14 PUFFS/INHALER INH SCH (09:00)
[2022-10-11] MEDS ORDERED: predniSONE 10 MG TABLET PO SCH (09:00)
[2022-10-11] MEDS ORDERED: FAMOTIDINE 20 MG TAB PO SCH (09:00)
[2022-10-11] MEDS ORDERED: CALCIUM 600MG + VIT D 400 IU TAB PO SCH (09:00)
[2022-10-11] MEDS ORDERED: lisinopril 10 MG TAB PO SCH (09:00)
[2022-10-11] MEDS ORDERED: VENLAFAXINE HCL XR 75 MG CAPXR PO SCH (09:00)
--- NOTE | 2022-10-11 11:49 | Discharge Summary ---
Date of Service October 11, 2022 Admission HPI Per Admitting Provider 77-year-old female with past medical history significant for hypertension, asthma, hypothyroid, history of DVT who presents with ongoing left knee pain. Pain is interfering with her daily activities. She has failed conservative measures including bracing and injections. She would like to proceed with surgical intervention. Patient denies headaches, sweats, fevers, chills, double vision, blurred vision, cough, sore throat, dysphagia, chest pain, sob, wheezing, n/v/d/c, numbness, tingling, fatigue, urinary symptoms, mood disorders. ROS positive for left knee pain and stiffness. Admission Exam Per Admitting Provider Constitutional: well developed and well nourished; no acute distress Eyes: PERRL, conjunctivae normal, anicteric sclerae ENMT: external ear and nose normal, oropharynx normal Neck: trachea midline, no thyromegaly Respiratory: normal respiratory effort, lungs clear to auscultation Cardiovascular: RRR, no murmur, no edema Musculoskeletal: Left knee: Varus alignment. Mild effusion. Tenderness medial joint line. There is crepitation range of motion. Range of motion is 5 to 110 degrees. Stable valgus and varus stress test. Skin: no rashes, warm and dry Neurologic: patellar DTR's 2+ bilat, sensation intact Psychiatric: A+Ox3, euthymic affect Principal Diagnosis Left knee osteoarthritis Discharge Exam Left knee: Dressing is clean, dry, intact. Toes are mobile with good dorsiflexion. No calf tenderness. Able to do a straight leg raise. Distally neurovascular status and sensation is grossly intact. Discharge Data Allergies Allergy/AdvReac Type Severity Reaction Status Date / Time No Known Allergies Allergy Unknown Verified 10/10/22 05:36 Consultations 10/08/22 10:02 Consult Hospitalist Routine Procedures Performed Operation Date: 10/10/22 07:00 Actual Procedures p Left Knee Total Knee Arthroplasty(Left) - Tramaine Hewitt MD Ordered Studies 10/10/22 05:00 US - OR guided needle placemen Routine Hospital Course (1) Status post left knee replacement: Postop day 1 left total knee arthroplasty -PT/OT -Pain management as written -DVT prophylaxis: SCDs, teds, Xarelto 10 mg daily -AM labs: Leukocytosis likely reactive due to surgical stress versus dilutional. Hemoglobin 10 from 11.9. Acute blood loss anemia due to surgical loss versus dilutional. Patient is asymptomatic. -Discharge planning: Plan on discharge home with home health. Plan on discharge home today if continues to go well and does well with therapy. Lab Results 10/11/22 10/11/22 Range/Units 05:53 05:53 WBC 14.49 H (4.8-10.8) K/ul RBC 3.42 L (4.20-5.40) M/uL Hgb 10.0 L (12.0-16.0) g/dl Hct 31.2 L (37.0-47.0) % MCV 91.2 (80.0-100.0) fL MCH 29.2 (25.0-34.0) pg MCHC 32.1 (32.0-36.0) g/dL RDW Std Deviation 44.6 (36.4-46.3) fL RDW Coeff of Umesh 13.4 (11.5-14.5) % Plt Count 226 (130-400) K/uL MPV 9.9 (9.4-12.4) fL Sodium 138 (136-145) mmol/L Potassium 4.6 (3.5-5.1) mmol/L Chloride 105 (98-107) mmol/L Carbon Dioxide 27 (21-32) mmol/L Anion Gap 6 (3-11) BUN 26 H (6-23) mg/dl Creatinine 1.18 (0.6-1.2) mg/dl Est Cr Clr Drug Dosing 43.1 ml/min Est GFR ( Amer) 50.8 ml/min Est GFR (Non-Af Amer) 43.8 ml/min BUN/Creatinine Ratio 22.0 H (10-20) Glucose 132 H (70-99(Fasting)) mg/dl Calcium 9.1 (8.6-10.3) mg/dl Total Time Total Time Spent Total Time Spent (In Minutes): 20 Discharge Plan Discharge Items Patient Disposition: Home - Home Health Services Reason For Visit: Left Knee Osteoarthritis Discharge Diagnosis: Left knee osteoarthritis Activity: Per Instructions section Non-emergency contact: Surgeon Call non-emergency contact if: you have any medication questions, your pain is not controlled, your pain is concerning for you, you have a fever, your temperature is above 101, your wound has increased redness and your wound has increased drainage Follow-up/Referrals: Srini Rubio, [Primary Care Provider] - Diet: Regular Addtl Attending Provider Instructions: ACTIVITY RECOMMENDATIONS: SELF CARE INSTRUCTIONS AFTER TOTAL KNEE REPLACEMENT A. You may need to continue a physical therapy program after discharge from the hospital. There are several options available to you. Your doctor will assist you in selecting the best one for you. 1. An out-patient facility 2 to 3 times a week for therapy or home therapy. 2. Continue working on all exercises taught to you in the hospital. Your goals should be to increase bending of your knee to 90 degrees and beyond and to fully straighten your knee. B. You may progress at your own pace from walking with a walker or crutches to a cane; then to no assistive devices. C. Make walking a part of your daily routine. Be up as much as comfortable with rest periods throughout the day. Rest with leg elevation is very important. Use the ice wrap frequently for the first 3-4 weeks. D. There are no restrictions on activities. You may ride in a car, shop, participate in scanning clerk and all social activities. E. Wear the long elastic stockings (VILMA hose) 20 hours a day for 2 weeks after surgery. They can be removed several times a day for laundering and for a bath. F. You may shower, no tub baths until cleared by your doctor. SPECIAL CARE INSTRUCTIONS: VERY IMPORTANT TO READ AND REVIEW A. There are a few signs you need to watch for after you are home. Call [facility] if you notice any of the followin. Increased severe knee pain. Some pain is expected especially when you exercise. 2. Increased swelling in your leg or knee; pain or swelling of the calf muscle in either lower leg. 3. Any fluid drainage from the incision. 4. Shortness of breath or chest pain. B. Please call [facility] at if you have any concerns or questions about your operation or recovery. The doctor or his nurse will return your call promptly. C. You must take antibiotics before dental work, bladder, bowel or other surgery. Your doctor will provide you with a permanent care to carry describing this precaution. IMPORTANT: * REMEMBER TO TAKE ASPIRIN, 81 MG, TWICE DAILY FOR 4 WEEKS UNLESS OTHERWISE DIRECTED. THIS IS YOUR BLOOD THINNER. * HIGH RISK PATIENTS MAY BE PRESCRIBED A STRONGER BLOOD THINNER. THIS WILL BE PROVIDED AT DISCHARGE. * CALL IF INCREASED PAIN, REDNESS, DRAINAGE OR FEVER GREATER THAT 101. * WEAR VILMA HOSE 20 HOURS PER DAY FOR 2 WEEKS. There is a large suction dressing covering your incision. This will help pull any excess drainage from the wound and allow your incision to heal properly. You may shower with this if you can keep the unit outside of the shower. If any bleeding or leakage is noted please call your doctor's office. This will remain on your incision for 7 days and then should be removed. This can be done yourself or by the home nursing staff if applicable. The entire unit is disposable once removed. Once removed, keep incision clean and dry. If redness or drainage is noted, please call your surgeon. IF INCISION IS LEAKING THROUGH DRESSING, CALL THE OFFICE . FOLLOW UP VISIT: If appointment is not already scheduled: Please call [facility] to make a follow-up appointment for 2 weeks after your surgery at . Stand-Alone Forms: My Looker, Smoking Cessation Medications and DC Order Prescriptions: New Xarelto 10 mg Tablet 10 mg PO DAILY Qty: 30 0RF acetaminophen [Tylenol Extra Strength] 500 mg Tablet 1,000 mg PO Q8 Qty: 60 0RF oxycodone 5 mg Tablet 5 - 10 mg PO .Q4h-6h MDD 6 PRN (Reason: pain) Qty: 30 0RF Rx Instructions: Ongoing therapy, Dr. Hewitt supervising Continued prednisone 10 mg Tablet 10 mg PO QAM calcium carbonate-vitamin D3 600 mg-5 mcg (200 unit) Tablet 1 tab PO DAILY lisinopril 10 mg Tablet 10 mg PO QAM lovastatin 20 mg Tablet 20 mg PO QAM albuterol sulfate 90 mcg/actuation Hfa Aerosol Inhaler 1 inh INHALATION QID PRN (Reason: sob) azithromycin 500 mg Tablet 500 mg PO 3XWK fluticasone propion-salmeterol [Advair HFA] 230-21 mcg/actuation Hfa Aerosol Inhaler 2 puff INHALATION BID venlafaxine 75 mg Tablet Extended Release 24hr 75 mg PO QAM Forteo 20 mcg/dose (600mcg/2.4mL) Pen Injector 20 mcg SUBCUT QPM Incruse Ellipta 62.5 mcg/actuation Blister With Device 1 inh INHALATION QAM levothyroxine [Synthroid] 100 mcg Tablet 100 mcg PO QAM Admission Data Admit Date/Time: 10/10/22 10:08 Attending Provider: Tramaine Hewitt Admit Provider: Tramaine Hewitt Primary Care Provider: Srini Rubio Other Providers: Alek Navarro,Home Health Other Interventions: Discharge Summary Assessment (RN) Last Done: 10/11/22 10:12
== END 2022-10-11 10:50 | disposition home health service (06) ==
LOC: 3N 05:13 → ASU 05:13
DX: Z79.52 Long term (current) use of systemic steroids; Z86.718 Personal history of other venous thrombosis and embolism; Z79.890 Hormone replacement therapy; I10 Essential (primary) hypertension; Z79.899 Other long term (current) drug therapy; Z87.891 Personal history of nicotine dependence; J44.9 Chronic obstructive pulmonary disease, unspecified; M17.12 Unilateral primary osteoarthritis, left knee; J45.909 Unspecified asthma, uncomplicated; Z86.711 Personal history of pulmonary embolism; E03.9 Hypothyroidism, unspecified; M81.0 Age-related osteoporosis without current pathological fracture

== ENCOUNTER 2023-01-16 07:59 | Observation (INO) ==
--- NOTE | 2023-01-04 09:49 | Anesthesiology Consultation ---
Date of Service January 04, 2023 Assessment & Plan (1) Encounter for pre-operative examination: Plan - Patient reports onset of headache and runny nose 01/01/23, she contacted her PCP and was started on Augmentin and prednisone 01/03/23; denies pharyngitis, cough, wheezing, fever, chills, chest discomfort, shortness of breath, nausea or vomiting. She notes improvement since starting medications. She was instructed to call PAT if persistent symptoms beyond 01/06/23 as then will need COVID test per current policy and if symptoms do not resolve by day before surgery. She verbalized understanding and agreement, denied questions or concerns. - s/p left total knee replacement 10/10/22 SAB at L3-L4 1 attempt + PNB. - Per java systems analyst on 01/04/2023: No known infectious disease contacts, current infectious disease symptoms in past 10 days or COVID positive test result in the past 90 days. Outpatient joint assessment: Patient is currently scheduled for inpatient pathway. If re-evaluated and patient/surgeon requests outpatient pathway, patient is not recommended candidate for outpatient joint program from anesthesia standpoint Chart Review Chart Review: Acceptable Risk for Surgery and Patient NOT seen in Pre Admission Testing History Surgery Operation Date: 01/16/23 12:50 Proposed Procedures p Right Total Knee Arthroplasty - Tramaine Hewitt MD Height/Weight Height: 5 ft 6 in Weight: 83.007 kg Allergies Allergy/AdvReac Type Severity Reaction Status Date / Time No Known Allergies Allergy Unknown Verified 01/04/23 09:01 Medications Home Medications Medication Instructions Recorded Confirmed Last Taken albuterol sulfate 90 mcg/actuation 1 inh inhalation QID PRN sob 09/25/22 01/04/23 10/10/22 03:30 aerosol inhaler azithromycin 500 mg tablet 500 mg PO 3XWK 09/25/22 01/04/23 10/08/22 08:00 calcium carbonate 600 mg-vitamin 1 tab PO DAILY 09/25/22 01/04/23 10/09/22 18:30 D3 5 mcg (200 unit) tablet fluticasone propionate 230 2 puff inhalation BID 09/25/22 01/04/23 10/10/22 03:30 mcg-salmeterol 21 mcg/actuation HFA inhaler (Advair HFA) levothyroxine 100 mcg tablet 100 mcg PO QAM 09/25/22 01/04/23 10/10/22 03:30 (Synthroid) lisinopril 10 mg tablet 10 mg PO QAM 09/25/22 01/04/23 10/09/22 08:00 lovastatin 20 mg tablet 20 mg PO HS 09/25/22 01/04/23 10/10/22 03:30 prednisone 10 mg tablet 10 mg PO QAM 09/25/22 01/04/23 10/10/22 03:30 teriparatide 20 mcg/dose (600 20 mcg subcut QPM 09/25/22 01/04/23 10/09/22 20:30 mcg/2.4 mL) subcutaneous pen injector (Forteo) umeclidinium 62.5 mcg/actuation 1 inh inhalation QAM 09/25/22 01/04/23 10/10/22 03:30 blister powder for inhalation (Incruse Ellipta) venlafaxine 75 mg tablet,extended 75 mg PO QAM 09/25/22 01/04/23 10/10/22 03:30 release 24 hr oxycodone 5 mg tablet 5 - 10 mg (1 - 2 x 5 mg) PO 10/11/22 01/04/23 Unknown .Q4h-6h PRN pain #30 tabs rivaroxaban 10 mg tablet (Xarelto) 10 mg PO DAILY #30 tabs 10/11/22 01/04/23 Unknown acetaminophen 500 mg tablet 1,000 mg PO Q8 PRN Pain 01/04/23 01/04/23 Unknown (Tylenol Extra Strength) amoxicillin 875 mg-potassium 1 tab PO BID 01/04/23 01/04/23 Unknown clavulanate 125 mg tablet cholecalciferol (vitamin D3) 50 50 mcg PO DAILY 01/04/23 01/04/23 Unknown mcg (2,000 unit) tablet (Vitamin D3) cyanocobalamin (vitamin B-12) 500 500 mcg PO DAILY 01/04/23 01/04/23 Unknown mcg tablet Past Medical History Medical History (Updated 01/04/23 @ 09:47 by Bell Valdivia PA-C) Osteoporosis Sinus infection saw pcp and given abx treatment, to be finished with prior to dos COPD (chronic obstructive pulmonary disease) well controlled per pt History of Helicobacter pylori infection ~05/2022 has since resolved Anemia Per records Anxiety Depression Pulmonary embolism December 2020 in right lung. treated with anticoagulants and has since resolved. unknown cause, no longer on an anticoagulant Deep vein thrombosis December 2020 in right leg. treated at [facility] with anticoagulants. unknown cause. no longer on anticoagulants. Hypothyroidism Chronic steroid use Hyperlipidemia Hypertension Sarcoidosis [facility] pulmonary. reason for the abx treatment 3x weekly. Stable breathing Asthma "borderline asthma" well controlled with inhalers. Sleep apnea cpap at night Past Family History Family History Other No family history of adverse response to anesthesia Past Surgical History Surgical History History of cardiac cath 20+ yrs ago > no stents History of total knee replacement left History of bladder surgery bladder sling H/O vaginal hysterectomy History of cholecystectomy History of appendectomy History of colonoscopy History of esophagogastroduodenoscopy (EGD) History of vitrectomy left eye History of tonsillectomy History of bronchoscopy Social History Smoking Status: Former smoker tobacco type: cigarettes Do You Dip or Chew Tobacco: No Smoking End Date: 40 yrs ago Hx Alcohol Use: No Hx Substance Use: No substance use type: does not use Lab Results Anesthesia Preop Results Results Anesthesia Widget: WBC 10.12 K/ul (4.8-10.8) 12/25/22 Hgb 11.8 g/dl (12.0-16.0) L 12/25/22 Hct 37.6 % (37.0-47.0) 12/25/22 Plt 294 K/uL (130-400) 12/25/22 Na 140 mmol/L (136-145) 12/25/22 K 3.8 mmol/L (3.5-5.1) 12/25/22 Cl 104 mmol/L (98-107) 12/25/22 CO2 27 mmol/L (21-32) 12/25/22 BUN 19 mg/dl (6-23) 12/25/22 Creat 0.86 mg/dl (0.6-1.2) 12/25/22 Glucose Level 105 mg/dl (70-99(Fasting)) H 12/25/22 PT 10.9 Seconds (9.0-12.0) 12/25/22 INR 1.0 (0.9-1.1) 12/25/22 Urine Color Yellow 12/25/22 Urine Appearance Clear (Clear) 12/25/22 Urine pH 6.0 (4.5-7.5) 12/25/22 Urine Specific [place] 1.007 (1.000-1.030) 12/25/22 Urine Protein Negative (Negative) 12/25/22 Urine Glucose (UA) Negative (Negative) 12/25/22 Urine Ketones Negative (Negative) 12/25/22 Urine Blood Trace (Negative) H 12/25/22 Urine Nitrite Negative (Negative) 12/25/22 Urine Bilirubin Negative (Negative) 12/25/22 Urine Urobilinogen Negative (Negative) 12/25/22 Urine Leukocyte Esterase Negative (Negative) 12/25/22 Urine WBC (Auto) 1-5 /hpf (0-5) 12/25/22 Urine RBC (Auto) 0-4 /hpf (0-4) 12/25/22 Urine Hyaline Casts (Auto) 1-5 /lpf (0-5) 12/25/22 Urine Epithelial Cells (Auto) 0-5 /lpf (0-5) 12/25/22 Urine Bacteria (Auto) Negative (Negative) 12/25/22 Blood Type O Positive 12/25/22 Antibody Screen NEGATIVE 12/25/22 Testing Electrocardiogram Date: 09/28/22 NSR, rate 72 bpm Chest X-Ray Date: 09/28/22 1. Progressive densities within the right middle lobe and lingula. This favors scarring. However, follow-up nonemergent chest CT is recommended to exclude an underlying pulmonary opacity/lesion. 2. This report was called/faxed to the referring physician following dictation.
--- NOTE | 2023-01-15 19:27 | History & Physical Report ---
Date of Service January 15, 2023 Assessment & Plan (1) Primary osteoarthritis of right knee: Plan: Treatment options discussed with the patient. She has failed conservative measures would like to proceed with surgical invention. Risks, benefits and alternatives to surgery including but not limited to infection, DVT, pain, stiffness, need for revision surgery, damage to blood vessels, damage to nerves, PE, , were discussed with the patient and they wish to proceed. Plan for right total knee arthroplasty scheduled for [facility] on January [address] Hewitt. Plan on Xarelto postop for DVT prophylaxis. Plan on home health therapy postop. All questions answered. Patient follow-up postoperatively. History of Present Illness Chief Complaint: Right knee pain Primary Care Provider: Srini Rubio DO 77-year-old female with past medical history significant for hypertension, asthma, hypothyroid, history of DVT who presents with ongoing right knee pain. Pain is interfering with her daily activities. She has failed conservative measures including bracing and injections. She would like to proceed with surgical intervention. Patient denies headaches, sweats, fevers, chills, double vision, blurred vision, cough, sore throat, dysphagia, chest pain, sob, wheezing, n/v/d/c, numbness, tingling, fatigue, urinary symptoms, mood disorders. ROS positive for right knee pain and stiffness. Allergies Allergy/AdvReac Type Severity Reaction Status Date / Time No Known Allergies Allergy Unknown Verified 01/04/23 09:01 Home Medications Medication Instructions Recorded Confirmed Type albuterol sulfate 90 mcg/actuation 1 inh inhalation QID PRN sob 09/25/22 01/04/23 History aerosol inhaler azithromycin 500 mg tablet 500 mg PO 3XWK 09/25/22 01/04/23 History calcium carbonate 600 mg-vitamin 1 tab PO DAILY 09/25/22 01/04/23 History D3 5 mcg (200 unit) tablet fluticasone propionate 230 2 puff inhalation BID 09/25/22 01/04/23 History mcg-salmeterol 21 mcg/actuation HFA inhaler (Advair HFA) levothyroxine 100 mcg tablet 100 mcg PO QAM 09/25/22 01/04/23 History (Synthroid) lisinopril 10 mg tablet 10 mg PO QAM 09/25/22 01/04/23 History lovastatin 20 mg tablet 20 mg PO HS 09/25/22 01/04/23 History prednisone 10 mg tablet 10 mg PO QAM 09/25/22 01/04/23 History teriparatide 20 mcg/dose (600 20 mcg subcut QPM 09/25/22 01/04/23 History mcg/2.4 mL) subcutaneous pen injector (Forteo) umeclidinium 62.5 mcg/actuation 1 inh inhalation QAM 09/25/22 01/04/23 History blister powder for inhalation (Incruse Ellipta) venlafaxine 75 mg tablet,extended 75 mg PO QAM 09/25/22 01/04/23 History release 24 hr oxycodone 5 mg tablet 5 - 10 mg (1 - 2 x 5 mg) PO 10/11/22 01/04/23 Rx .Q4h-6h PRN pain #30 tabs rivaroxaban 10 mg tablet (Xarelto) 10 mg PO DAILY #30 tabs 10/11/22 01/04/23 Rx acetaminophen 500 mg tablet 1,000 mg PO Q8 PRN Pain 01/04/23 01/04/23 History (Tylenol Extra Strength) amoxicillin 875 mg-potassium 1 tab PO BID 01/04/23 01/04/23 History clavulanate 125 mg tablet cholecalciferol (vitamin D3) 50 50 mcg PO DAILY 01/04/23 01/04/23 History mcg (2,000 unit) tablet (Vitamin D3) cyanocobalamin (vitamin B-12) 500 500 mcg PO DAILY 01/04/23 01/04/23 History mcg tablet Past Med/Surg History Medical History (Updated 01/15/23 @ 19:26 by Bartolo Raymond PA-C) Osteoporosis Sinus infection saw pcp and given abx treatment, to be finished with prior to dos COPD (chronic obstructive pulmonary disease) well controlled per pt History of Helicobacter pylori infection ~05/2022 has since resolved Anemia Per records Anxiety Depression Pulmonary embolism December 2020 in right lung. treated with anticoagulants and has since resolved. unknown cause, no longer on an anticoagulant Deep vein thrombosis December 2020 in right leg. treated at [facility] with anticoagulants. unknown cause. no longer on anticoagulants. Hypothyroidism Chronic steroid use Hyperlipidemia Hypertension Sarcoidosis [facility] pulmonary. reason for the abx treatment 3x weekly. Stable breathing Asthma "borderline asthma" well controlled with inhalers. Sleep apnea cpap at night Surgical History History of cardiac cath 20+ yrs ago > no stents History of total knee replacement left History of bladder surgery bladder sling H/O vaginal hysterectomy History of cholecystectomy History of appendectomy History of colonoscopy History of esophagogastroduodenoscopy (EGD) History of vitrectomy left eye History of tonsillectomy History of bronchoscopy Family History Other No family history of adverse response to anesthesia Social History Smoking Status: Former smoker Smoking End Date: 40 yrs ago; Second Hand Exposure: No; Do You Dip or Chew Tobacco: No; Tobacco Cessation Education Requested by Patient: No Hx Alcohol Use: No Hx Substance Use: No Preferred Language: [place] Communication Ability: Effective Centrifugal Operator Required: No Beliefs That Will Affect Care: None Current Living Situation: Spouse Other Information That Helps Us Care for You: No Feels Safe at Home: Yes Safety Concerns: Feels Safe At This Time Assistive Devices: Denture - Upper, Denture - Lower and Glasses Review of Systems All systems reviewed & are unremarkable except as noted in HPI & below Physical Exam Constitutional: well developed and well nourished; no acute distress Eyes: PERRL, conjunctivae normal, anicteric sclerae ENMT: external ear and nose normal, oropharynx normal Neck: trachea midline, no thyromegaly Respiratory: normal respiratory effort, lungs clear to auscultation Cardiovascular: RRR, no murmur, no edema Musculoskeletal: Right knee: Varus alignment. Mild effusion. Tenderness medial joint line. Stable valgus varus stress test. Range of motion 0 125 degrees. Skin: no rashes, warm and dry Neurologic: patellar DTR's 2+ bilat, sensation intact Psychiatric: A+Ox3, euthymic affect Results & Data Diagnostic Findings Right knee radiographs demonstrate end-stage osteoarthritis, [id number] medial compartment. There is periarticular osteophytes.
[~2023-01-16 07:59] MED LIST changes: +ACETAMINOPHEN 500 MG TAB PO SCH; -ATOR-22 PO; -ATOR-24 PO; +BUPIVACAINE 0.5 % 5 MG/1 ML PF 10ML VIAL ONE; +CeleBREX 200 MG CAP PO SCH; +DEXAMETHASONE SOD INJ 4 MG/ML VIAL ONE; +FAMOTIDINE 20 MG TAB PO SCH; +GABAPENTIN 300 MG CAP PO SCH; +LIDOCAINE 2% 2 ML VIAL/AMP(20MG/ML) INFIL ONE; +LR 500ML BOLUS, THEN 15ML/HR IV SCH; +LR 60ML/HR IV SCH; +METOCLOPRAMIDE HCL 10 MG TABLET PO SCH; +MIDAZOLAM HCL 1 MG/ML 2ML VIAL ONE; +ONDANSETRON INJ 2 MG/ML 2 ML VIAL ONE; -PARO1TAB29 PO; +PHENYLEPHRINE HCL 10 MG/ML VIAL ONE; +PROPOFOL IV EMULSION 10 MG/ML 20 ML VIAL IV ONE; +ROPIVACAINE 0.5% 5 MG/ML 30 ML VIAL ONE; +ROPIVACAINE 0.5% HCL/PF 150 MG, BUPIVACAINE 0.75% MPF 20 ML, EPINEPHrine 30MG/30ML (OR ... INSTIL SCH; -SYN137 PO; +TRANEXAMIC ACID 1,000 MG **IV Intra-op IV SCH; +TRANEXAMIC ACID 1,000 MG **IV Pre-op IV SCH; +ceFAZolin 2000MG 2,000 MG/15 ML SYR IV SCH; +dexAMETHasone 4 MG TAB PO SCH; +fentaNYL citrate PF 100 MCG/2 ML VIAL ONE
--- OUTSIDE RECORDS SUMMARY | 2023-01-16 08:11 | External Medical Summary | Summary of Care ---
Author Name Unknown Organization [facility] Address [address] [place] [address] Phone [phone] Care Team Providers Care Associate Artistic Director Name Role Phone Srini Rubio DO Primary Care Provider [phone] Reason for Visit * Reason Comments Follow Up Encounter Details Date Type Department Care Team (Late st Contact Info) Description 12/28/2022 8:45 AM EST Office Visit Ophthalmology, [place] [address] [address] Manjeet Jeronimo DO [address] [facility] [place] [address] Dry eyes, bilateral*; Meibomian gland dysfunction (MGD) of both eyes; Corneal scar Allergies No known active allergiesdocumented as of this encounter (statuses as of 12/28/2022) Medications Medication Sig Dispensed Refills Start Date End Date Status VENLAFAXINE HCL 75 MG PO TABS once daily 0 Active Levothyroxine Sodium 100 MCG Capsule 1 Capsule in the morning. 0 Active Respiratory Therapy Supplies LYN Use as directed. VEST for 15 mins twice daily 0 Active Respiratory Therapy Supplies LYN Use as directed. CPAP 9 cm at bedtime daily 0 Active Albuterol Sulfate (ALBUTEROL HFA) 108 (90 BASE) MCG/ACT inhalerIndications :COPD, mild (HCC) INHALE 2 PUFFS BY MOUTH EVERY 4 HOURS NEEDED FOR COUGH, SHORTNESS OF BREATH OR WHEEZING. 54 g 3 09/28/2019 Active Lovastatin 20 MG Oral Tablet (Mevacor) Take 1 Tablet by mouth in the morning. 0 Active Lisinopril 10 MG Oral Tablet (Prinivil) Take 1 Tablet by mouth daily. 30 Tablet 0 01/05/2021 Active predniSONE 5 MG Oral Tablet (Deltasone)Indicat ions:PMR (polymyalgia rheumatica) (HCC) TAKE 1 TABLET EVERY DAY IN THE MORNING WITH FOOD 90 Tablet 3 01/22/2022 Active Levothyroxine Sodium 100 MCG Oral Tablet (Levoxyl) 0 11/09/2021 Active Venlafaxine HCl ER 75 MG Oral Capsule Extended Release 24 Hour (Effexor XR) 0 11/09/2021 Active Cyclobenzaprine HCl 10 MG Oral Tablet (Flexeril) Take 1 Tablet by mouth 2 times a day as needed. 0 03/05/2022 Active Gabapentin 100 MG Oral Capsule (Neurontin) Take 1 Capsule by mouth in the morning and 1 Capsule at noon and 1 Capsule before bedtime. 0 03/26/2022 Active Ondansetron HCl 8 MG Oral Tablet (Zofran) 0 04/20/2022 Active Pantoprazole Sodium 40 MG Oral Tablet Delayed Release (Protonix)Indicati ons:H. pylori infection Take 1 Tablet by mouth in the morning. 14 Tablet 0 05/31/2022 Active Incruse Ellipta 62.5 MCG/ACT Inhalation Aerosol Powder Breath Activated (umeclidinium [place])Indication s:COPD, mild ([facility]) USE 1 INHALATION ORALLY DAILY 90 Each 3 08/20/2022 Active Advair HFA 230-21 MCG/ACT Inhalation Aerosol (fluticasone-Salme terol)Indications: COPD, mild ([facility]) USE 2 INHALATIONS ORALLY EVERY MORNING AND 2 INHALATIONS ORALLY BEFORE BEDTIME 36 g 3 08/20/2022 Active Azithromycin 500 MG Oral Tablet (Zithromax)Indicat ions:Bronchiectasi s without complication ([facility]) Take one tablet by mouth on Saturday, Saturday, and Saturday. 15 Tablet 5 08/22/2022 Active cycloSPORINE 0.05 % Ophthalmic Emulsion (Restasis) Instill 1 Drop into both eyes in the morning and 1 Drop before bedtime. 60 Each 11 10/30/2022 Active Erythromycin 5 MG/GM Ophthalmic Ointment Instill 0.25 Inches into eye at bedtime. 3.5 g 6 12/28/2022 Active prednisoLONE Acetate 1 % Ophthalmic Suspension (Pred Forte) Instill 1 Drop into the left eye in the morning. 5 mL 2 10/30/2022 3 Discontinue d(End of Procedure) Hospital, Clinic, or Other Facility Administered Medication Ordered Dose Route Frequency Start Date End Date Status Albuterol Sulfate (Proventil) (2.5 MG/3ML) 0.083% inhalation solution 2.5 mgIndications:Severe persistent asthma without complication 2.5 mg NEBULIZER PRN 08/28/2022 08/28/2023 Acti ve Albuterol Sulfate (Proventil) (5 MG/ML) 0.5% *conc* inhalation solution 2.5 mgIndications:Severe persistent asthma without complication 2.5 mg NEBULIZER PRN 08/28/2022 08/28/2023 Acti ve documented as of this encounter (statuses as of 12/28/2022) Active Problems Problem Noted Date Diagnosed Date Acute pulmonary embolism without acute cor pulmo nale 01/02/2021 Acute deep vein thrombosis (DVT) of right lower extremity 01/02/2021 PMR (polymyalgia rheumatica) 01/07/2020 Pulmonary sarcoidosis 11/27/2018 MALINDA on CPAP 02/13/2017 Bronchiectasis without complication 06/26/2016 Pulmonary nodules 06/06/2015 SOB (shortness of breath) 06/06/2015 Nasal septum perforation 08/04/2013 Hypersomnia, unspecified 10/21/2012 Asthma, severe persistent 09/23/2012 Personal history of tobacco use, presenting hazards to health documented as of this encounter (statuses as of 12/28/2022) Resolved Problems Problem Noted Date Diagnosed Date Resolved Date Pulmonary aspergillosis 01/28/2020 0702/2022 COPD, mild 07/30/2013 12/25/2018 Sleep apnea 09/23/2012 02/13/2017 Obesity, morbid (more than 1 00 lbs over ideal weight or BMI > 40) 09/23/2012 11/22/2021 documented as of this encounter (statuses as of 12/28/2022) Immunizations Name Administration Dates Next Due COVID-19 mRNA, LNP-s, No Pre serve, 2-Dose Series ([employer]) 11/30/2020,05/28/2020,05/07/2020 PPD 03/11/2015,02/23/2015 Pneumococcal Conjugate Vacc, 13 Valent (Prevnar) 10/20/2015 Pneumococcal Polysaccharide PPV23 (Pneumovax) 11/27/2018 Seasonal Influenza, Quadriva lent Hd (Fluzone Hd) 11/22/2021,11/30/2020 Seasonal Influenza, Split, I IV3, With Preserve, Inj 11/18/2017,10/20/2015,10/19/2014 Seasonal Influenza, Trivalen t, Adjuvanted, 65+ yrs 11/09/2019,11/27/2018 documented as of this encounter Social History Tobacco Use Types Packs/Day Years Used Date Smoking Tobacco: Former Cigarettes 1.5 10 Q uit: 02/18/1987 Smokeless Tobacco: Never Tobacco Cessation:Counseling Given: No Alcohol Use Standard Drinks/Week Comments No 0 (1 standard drink = 0.6 oz pur e alcohol) Sex and Gender Information Value Date Recorded Sex Assigned at Not on file Gender Identity Not on file Sexual Orientation Not on file Job Start Date Occupation Industry Not on file Not on file Not on file documented as of this encounter Progress Notes * Manjeet Jeronimo, - 12/28/2022 8:45 AM EST 12/28/22 Sherry Taylor is a 77 year old patient here for return. Original referral by Dr. No Interval 12/28/22: Worsening vision OU. Interested in dry eye treatment nasal spray. Past Ocular History: Cataract OU Eyelid cyst (removal, 6 years old) FT OS s/p repair - PPV (Dr. Liang, P[facility], 02/2022) Eye Medications: Pred forte BID OU Theratears artificial tear TID-QID OU Restasis BID OU Hx of refractive procedure, reviewed: Denies Hx of contact lens use, reviewed: Denies Hx of eye trauma, reviewed: Denies FOHx, reviewed: Denies Review of Systems Unless noted above, all other systems negative. Nursing notes reviewed. Base Eye Exam Visual Acuity (Snellen - Linear) Right Left Dist cc 20/30 -2 20/200 Correction: Glasses Tonometry (Tonopen, 8:44 AM) Right Left Pressure 9 10 Pupils Pupils Dark Light Shape React APD Right PERRL 4 3 Round Brisk None Left PERRL 4 3 Round Brisk None Visual Case (Counting fingers) Right Left Full Full Extraocular Movement Right Left Full Full Slit Lamp and Fundus Exam External Exam Right Left External Normal Normal Slit Lamp Exam Right Left Lids/Lashes DCL, MGD, plugs out DCL, MGD, plugs out Conjunctiva/Sclera White and quiet White and quiet Cornea ABMD superior with punctate staining within, low tear davila, rapid TBUT PEK diffuse, central oblong round subepi/anterior stromal scar in central/inferotemporal axis [id number] w/ corneal thinning(~10-20% thinning) - faded scar, low tear davila Anterior Chamber Deep and quiet Deep and quiet Iris Round and reactive, Round and reactive Lens 1+ NSC, 2+ cortical 1+ NSC, 2+ cortical Date: 01/22/22 OCT Macula: OD - Normal OS - Full thickness hole Topography 05/23/22 OD: Regular, 0.30D OS: Irregular, fluctuating values from 1.33D to 7.88D, central flattening in area of clinical scar Corneal sensation 05/29/22: Intact and symmetric OU A/P: Corneal scar, OS Severe punctate keratitis, OS KRISTOFER, ABMD OU Left eye central corneal scar with corneal thinning - stable Corneal sensation intact OU Worsening cornea appearance OU - likely responsible for current symptoms Plan: -Cont artificial tears 4x/day -Stop pred forte -Cont restasis BID OU -Erythromycin ophth ointment QHS OU -Warm compresses Macular hole, OS -Post vitrectomy - Dr. Liang, PARS Cataract OU -Present OU, but likely minimally significant -Hold on intervention RTC as scheduled Mar 13 or sooner prn. Manjeet Jeronimo DO 12/28/22 I spent a total of 10-19 minutes (exact time 10 mins) on the date of service in preparation, delivery, and documentation of the care provided to Sherry Taylor excluding any time spent in the performance of separately billed services. documented in this encounter Nursing Notes * Lauren Albarran COT - 12/28/2022 8:40 AM EST Pt presents with irritation and blurry vision OS--fb sensation Thinks OD is getting worse. Optom won't give new eyeglass rx until CE is done Using ATs 3-4xday documented in this encounter Plan of Treatment Upcoming Encounters Date Type Department Care Team (Late st Contact Info) Description 03/01/2023 8:45 AM EST Office Visit Ophthalmology, [place] [address] [facility] [place] [address] Manjeet Jeronimo DO [address] [facility] [facility] [place] [address] 08/29/2023 8:30 AM EDT [facility]ostic Pulmonary Function Lab, [address] [place] [address] [facility], Pulm Function Room 1 [address] [place] [address] 08/29/2023 9:00 AM EDT [facility], [address] [address] [facility], Pulm Function Room 2 [address] [place] [id number] 09/03/2023 9:00 AM EDT Office Visit Pulmonary Medicine [place] [address] [place] [phone] Branden Caruso MD [address] [address] Health Maintenance Due Date Last Done Comments Depression Screening 1957 Hepatitis C Screening 09/30/1961 DTaP,Tdap,and Td Vaccines (1 - Tdap) 09/30/1962 Zoster Vaccines (1 of 2) 09/30/1993 TSH 09/07/2015 09/06/2014, 06/18, 01/01/2014 COVID-19 Vaccine ( season) 2022 11/30/2020, 05/28/2020, 05/07/2020 Influenza Vaccine (FLU shot) (#1) 2022 11/22/2021, 11/30/2020, 11/09/2019, Additional history exists COLONOSCOPY-EVERY 3 YRS AGES 18-100 04/27/2025 04/27/2022, 04/27/2022, 03/24/2018, Additional history exists DXA Scan 07/10/2029 07/10/2022 Pneumococcal Vaccine: 65+ Years Completed 11/27/2018, 10/20/2015 GARDASIL-HPV IMMUNIZATION SERIES Aged Out No longer eligible based on patient's age to complete this topic Hepatitis B Aged Out No longer eligi ble based on patient's age to complete this topic MENINGOCOCCAL (MENACTRA/MENVEO) Aged Out No longer eligible based on patient's age to complete this topic documented as of this encounter Medical Devices Not on filedocumented as of this encounter Visit Diagnoses Diagnosis Dry eyes, bilateral- Primary Tear film insufficiency, unspecified 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 Question Answer Comments Discussion of Advance Directives occurred with: Patient Care Teams Associate Artistic Director Relationship Specialty Start Date End Date Srini Rubio DO [address] [place] [id number] PCP - General 09/09/07 documented as of this encounter
--- OUTSIDE RECORDS SUMMARY | 2023-01-16 08:11 | External Medical Summary | Summary of Care ---
Author Name Unknown Organization [facility] Address [address] [place] [address] Phone [phone] Care Team Providers Care Crm Technical Lead Name Role Phone RubioDevin montanon Navarro Primary Care Provider + [phone] Reason for Visit * Reason Onset Date Comments Medication Refill 01/09/2023 Encounter Details Date Type Department Care Team (Late st Contact Info) Description 01/09/2023 Refill Sleep Disorders, [facility] [address] [place] [address] Jean Carlos Diana PA-C [address] [place] [address] PMR (polymyalgia rheumatica) ([facility]) Allergies No known active allergiesdocumented as of this encounter (statuses as of 01/09/2023) Medications Medication Sig Dispensed Refills Start Date [...] 108 (90 BASE) MCG/ACT inhalerIndications :COPD, mild ([facility]) INHALE 2 PUFFS BY MOUTH EVERY 4 HOURS NEEDED FOR COUGH, SHORTNESS OF BREATH OR WHEEZING. 54 g 3 09/28/2019 Active Lovastatin 20 MG Oral Tablet (Mevacor) Take 1 Tablet by mouth in the morning. 0 Active Lisinopril 10 MG Oral Tablet (Prinivil) Take 1 Tablet by mouth daily. 30 Tablet 0 01/05/2021 Active Levothyroxine Sodium 100 MCG Oral Tablet [...] MCG/ACT Inhalation Aerosol Powder Breath Activated (umeclidinium [place])Indication s:COPD, mild (HCC) USE 1 INHALATION ORALLY DAILY 90 Each 3 08/20/2022 Active Advair HFA 230-21 MCG/ACT Inhalation Aerosol (fluticasone-Salme terol)Indications: COPD, mild (HCC) USE 2 INHALATIONS ORALLY EVERY MORNING AND 2 INHALATIONS ORALLY BEFORE BEDTIME 36 g 3 08/20/2022 Active Azithromycin 500 MG Oral Tablet (Zithromax)Indicat ions:Bronchiectasi s without complication (HCC) Take one tablet by mouth on Saturday, Saturday, and Saturday. 15 Tablet 5 08/22/2022 Active cycloSPORINE 0.05 % Ophthalmic Emulsion (Restasis) Instill 1 Drop into both eyes in the morning and 1 Drop before bedtime. 60 Each 11 10/30/2022 Active Erythromycin 5 MG/GM Ophthalmic Ointment Instill 0.25 Inches into eye at bedtime. 3.5 g 6 12/28/2022 Active predniSONE 5 MG Oral Tablet (Deltasone)Indicat ions:PMR (polymyalgia rheumatica) (HCC) TAKE 1 TABLET EVERY DAY IN THE MORNING WITH FOOD 90 Tablet 3 01/09/2023 Active predniSONE 5 MG Oral Tablet (Deltasone)Indicat ions:PMR (polymyalgia rheumatica) (HCC) TAKE 1 TABLET EVERY DAY IN THE MORNING WITH FOOD 90 Tablet 3 01/22/2022 3 Discontinue d(Refill) Hospital, Clinic, or Other Facility Administered Medication [...] as of this encounter (statuses as of 01/09/2023) Active Problems Problem Noted Date Diagnosed Date Acute pulmonary embolism without acute cor pulmo nale 01/02/2021 Acute deep vein thrombosis (DVT) of right lower extremity 01/02/2021 PMR (polymyalgia rheumatica) 01/07/2020 Pulmonary sarcoidosis 11/27/2018 MLAINDA on CPAP 02/13/2017 Bronchiectasis without complication 06/26/2016 Pulmonary nodules 06/06/2015 SOB (shortness of breath) 06/06/2015 Nasal septum perforation 08/04/2013 Hypersomnia, unspecified 10/21/2012 Asthma, severe persistent 09/23/2012 Personal history of tobacco use, presenting hazards to health documented as of this encounter (statuses as of 01/09/2023) Resolved Problems Problem Noted Date Diagnosed Date Resolved Date Pulmonary aspergillosis 01/28/202008/18 COPD, mild 07/30/2013 12/25/2018 Sleep apnea 09/23/2012 02/13/2017 Obesity, morbid (more than 1 00 lbs over ideal weight or BMI > 40) 09/23/2012 11/22/2021 documented as of this encounter (statuses as of 01/09/2023) Immunizations Name Administration Dates Next Due COVID-19 mRNA, LNP-s, No Pre serve, 2-Dose Series (Pfizer) 11/30/2020,05/28/2020,05/07/2020 PPD 03/11/2015,02/23/2015 Pneumococcal Conjugate Vacc, 13 [...] 10 Q uit: 02/18/1987 Smokeless Tobacco: Never Alcohol Use Standard Drinks/Week Comments No 0 (1 standard drink = 0.6 oz pur e alcohol) Sex and Gender Information Value Date Recorded Sex Assigned at Not on file Gender Identity Not on file Sexual Orientation Not on file Job Start Date Occupation Industry Not on file Not on file Not on file documented as of this encounter Miscellaneous Notes * Telephone Encounter - Jean Carlos Diana PA-C - 01/09/2023 4:57 PM ESTSigned Prescriptions: Disp Refills predniSONE 5 MG Oral Tablet (Deltasone) 90 Tab*3 Sig: TAKE 1 TABLET EVERY DAY IN THE MORNING WITH FOOD Authorizing Provider: JEAN CARLOS DIANA * Telephone Encounter - Hedy Pozo LPN - 01/09/2023 9:18 AM ESTPending Prescriptions: Disp Refills predniSONE 5 MG Oral Tablet (Deltasone) 90 Tab*3 Sig: TAKE 1 TABLET EVERY DAY IN THE MORNING WITH FOOD * Telephone Encounter - Hedy Pozo LPN - 01/09/2023 9:18 AM EST Did you pend patient's preferred pharmacy and medication before forwarding?yes [facility]acy: [id number] [place] Pending Prescriptions: Disp Refills predniSONE 5 MG Oral Tablet (Deltasone) 90 Tab*3 Sig: TAKE 1 TABLET EVERY DAY IN THE MORNING WITH FOOD Last Visit: Visit date not found (in office), Visit date not found (telemedicine) Next Visit: Visit date not found If no future appointments scheduled, and last appointment is greater than a year ago, please schedule patient for a follow-up appointment Last date the medication was ordered: 01/22/22 Is this request for a controlled substance?No Urine Drug Screen:No results found for this or any previous visit. Patient Phone Numbers Labs: Lab Results Component Value Date/Time CREAT 0.9 04/20/2022 11:54 AM CREAT 0.9 11/27/2018 12:04 PM POTASSIUM 3.9 04/20/2022 11:54 AM POTASSIUM 5.3 (H) 11/27/2018 12:04 PM TSH 0.38 09/06/2014 10:55 AM LDLCALC 97 07/01/2014 11:55 AM LDLDIRECT 98 07/01/2014 11:55 AM ALT 13 04/20/2022 11:54 AM ALT 17 03/10/2020 08:04 AM documented in this encounter Plan of Treatment Upcoming Encounters Date Type Department Care Team (Late st Contact Info) Description 03/01/2023 8:45 AM EST Office Visit Ophthalmology, [place] [address] Manjeet Jeronimo, DO [address] [place] [address] 08/29/2023 8:30 AM EDT PulmDiagnostic Pulmonary Function Lab, [facility] [address] [facility], [place] [address] [place], Pulm Function Room 1 [address] [place] [address] 08/29/2023 9:00 AM EDT PulmDiagnostic Pulmonary Function Lab, [facility] [address] [place] [address] [facility], Pulm Function Room 2 [address] [facility], [place] [address] 09/03/2023 9:00 AM EDT Office Visit Pulmonary Medicine [facility] [address] [place] [id number] Branden Caruso MD [address] [facility] [address] Health Maintenance Due Date Last Done Comments Depression Screening 1957 Hepatitis C Screening 09/30/1961 DTaP,Tdap,and Td Vaccines (1 - Tdap) 09/30/1962 Zoster Vaccines (1 of 2) 09/30/1993 TSH 09/07/2015 09/06/2014, 06/18, 01/01/2014 COVID-19 Vaccine (2022-24 season) 2022 11/30/2020, 05/28/2020, 05/07/2020 Influenza Vaccine (FLU shot) (#1) 2022 11/22/2021, 11/30/2020, 11/09/2019, Additional history exists COLONOSCOPY-EVERY 3 YRS AGES 18-100 04/27/2025 04/27/2022, 04/27/2022, 03/24/2018, Additional history exists DXA Scan 07/10/2029 07/10/2022 Pneumococcal Vaccine: 65+ Years Completed 11/27/2018, 01/04/2016, 10/20/2015, Additional history exists GARDASIL-HPV IMMUNIZATION SERIES Aged Out No longer [...] as of this encounter Visit Diagnoses Diagnosis PMR (polymyalgia rheumatica) (HCC) Polymyalgia rheumatica documented in this encounter Advance Directives Latest Code Status on File Code Status Date Activated Date Inactivated Comments Full Code 01/02/2021 3:24 PM 01/04/2021 5:41 PM Thi s order reflects the patients wishes and were consensually agreed upon. Question Answer Comments Discussion of Advance Directives occurred with: Patient Care Teams Crm Technical Lead Relationship Specialty Start Date End Date Srini Rubio DO [address] [place] [address] PCP - General 09/09/07 documented as of this encounter
[2023-01-16] MEDS ORDERED: ORTHO JOINT ANESTHETIC ONE (09:26)
[2023-01-16] MEDS ORDERED: ONDANSETRON INJ 2 MG/ML 2 ML VIAL IV PRN ×2 (09:27→13:45)
[2023-01-16] MEDS ORDERED: fentaNYL citrate PF 100 MCG/2 ML VIAL IV PRN (09:27)
[2023-01-16] MEDS ORDERED: ATROPINE SULFATE 0.1 MG/ML 10ML SYR IV PRN (09:27)
[2023-01-16] MEDS ORDERED: ePHEDrine sulfate 50 MG/ML AMP IV PRN (09:27)
--- NOTE | 2023-01-16 09:34 | History & Physical Bridge Note ---
Date of Service January 16, 2023 History & Physical Bridge Note I have examined the patient, reviewed the History & Physical and in the interval since the performance of the History & Physical I have noted the following changes of clinical significance: no changes noted
[2023-01-16] MEDS ORDERED: ePHEDrine sulfate 50 MG/5 ML SYR ONE (10:34)
--- NOTE | 2023-01-16 11:45 | Operative Report ---
Post Operative Report Pre & Post Diagnosis Operation Date: 01/16/23 10:00 Pre-Op Diagnosis: Right Knee Osteoarthritis Post-Op Diagnosis: Right Knee Osteoarthritis I identified the patient and participated in the time-out.: Yes Procedure Operation Date: 01/16/23 10:00 Actual Procedures p Right Total Knee Arthroplasty, Cemented(Right), sarah and Acticoat superficial wound VAC application- Tramaine Hewitt MD Surgeon Tramaine Hewitt MD Catalytic Converter Operator Bartolo HAMLIN Estimated Blood Loss 10 Findings Consistent with Post-Op Diagnosis Specimens Bone cuts Drains 2 Hemovac Anesthesia Type MAC Spinal Regional Complications none Disposition Disposition: Recovery Room Indications 77-year-old female with chronic right knee pain end-stage osteoarthritis tricompartmental with bone loss medial compartment with a varus knee. Patient has successful left knee replacement in the past. Description of Procedure Patient taken to the operating room the size under spinal MAC regional block anesthesia. Patient was placed supine on the operating table. A pneumatic tourniquet was placed about the obese right upper thigh. The right lower extrem ity was prepped and draped in sterile fashion. Knee exam demonstrated patient a lot of loose fat about her thigh and leg and had a varus knee with no pseudolaxity and normal range of motion. The leg was elevated exsanguinated with an Esmarch bandage and pneumatic tourniquet was raised to 325 millimeters of mercury. Skin incised sharply in longitudinal fashion. Subcutaneous flaps elevated. Incision was made through the medial retinaculum extending up in the mid third of the quadriceps tendon and down to the medial tibial tubercle. Intra-articular findings demonstrated tricompartmental osteoarthritis with calcification of the synovium with medial and lateral meniscus tears and [id number] with eburnation medial compartment with bone loss medial compartment with tricompartmental osteoarthritic findings.. The Jetpaclon total knee arthroplasty system was used. To expose the knee the infrapatellar fat pad was resected. The meniscal remnants and cruciate ligaments were resected. The anterior fat pad over the femur in the area of the location of the anterior flange of the femoral component was resected. The lateral synovial bands were released. The femur was exposed. An intramedullary drill hole was made into the canal. A guide edelmira was placed. Distal femoral cutting guide was adjusted to resect a 5 degree valgus cut with 8 millimeters distal femur resected. The knee was extended and a subperiosteal peel lateral release was performed around the patella. Patella width was measured and width was reproduced using a freehand cut technique and a 36 x 10 symmetrical patella component. The 3 drill holes were made and the excess lateral facet was beveled off to prevent any impingement. Attention was taken back to the femur which was exposed with retractors and the femoral sizing guide was pinned in position. The drill holes were placed in 3 of external rotation to match the epicondylar axis. The femur sized for a 4 component. The 4-in-1 cutting block was placed and then the anterior posterior and chamfer cuts are made. The tibia was then subluxed. The external tibial cutting guide was adjusted to make a perpendicular cut to the long axis of the tibia below the most deficient bone loss side. Cut was adjusted for slope. A lamina coal shooter was used and the flexion extension gaps were balanced. Minor medial releases were required. All posterior osteophytes removed. All meniscal remnants were resected. The tibia exposed and the trial tibial component size 4 was externally rotated in line with the tibial tubercle and pinned in position. The punch for stem was used. The notch cutting device was centered appropriately and the femoral notch cut was made. The femoral trial was inserted. Trial tibial inserts were placed and size 16 mm posterior stabilized tibial insert gave balanced ligaments through flexion and extension. Patella tracking was assessed. The patella tracked centrally X failed. The trial components were then removed and the orthomix anesthetic cocktail was injected per protocol. The knee was then copiously irrigated with pulsatile lavage saline solution. Final components were then cemented with Refobacin cement. Final components were triathlon size 4 right posterior stabilized femoral component, size 4 right posterior stabilized femoral component, size 4 universal tibial baseplate with a 12 mm diameter 50 mm length cemented stem and fixation lugs on the femur and a 16 mm X.3 polyethylene tibial bearing insert and a X.3 polyethylene 36 x 10 mm symmetrical patella. The components were lightly irrigated with xperience prior to placing the poly in place. After the cement cured the knee was copiously irrigated with xperience irrigation. 2 Hemovac drains were brought out laterally. The quadriceps tendon and medial retinaculum were closed with figure of 8 #1 Vicryl sutures. The knee was taken through full range of motion and the repair was secure. Knee range of motion was 0 through 135 degrees. The subcutaneous tissues were closed with 2-0 Vicryl sutures. Skin was closed with bettina. A sarah and Acticoat superficial wound VAC was applied. The patient tolerated the procedure well. Bartolo HAMLIN was my physician parking assistant who participated as first helper and was involved in all aspects of the procedure including patient positioning prepping and draping,leg positioning ,soft tissue retraction and instrument management and participated in the closing and application of superficial wound VAC and will participate in postoperative care of the patient. The patient tolerated the procedure well. I attest to the content of the Intraoperative Record and any orders documented therein. Any exceptions are noted below.
--- NOTE | 2023-01-16 12:59 | XRay Report ---
XR knee RT 1 or 2V routine CLINICAL HISTORY: Right knee arthroplasty. COMPARISON: None FINDINGS: Alignment of the total right knee arthroplasty is anatomic. There is no periprosthetic fra cture or unexpected radiopaque body. There are skin ebttina. Surgical drains are in place. IMPRESSION: Expected findings following total right knee arthroplasty. ACT 112: Negative or not required by law. Electronically signed by: Yordan Bell M.D. 01/16/2023 12:58 PM
--- NOTE | 2023-01-16 13:04 | Anesthesiology Progress Note ---
Date of Service January 16, 2023 Anesthesia Post Procedure Vital Signs Vital Signs: Temp Pulse Pulse Resp BP BP Pulse Ox 01/16/23 13:00 97.7 F 64 20 142/71 H 94 01/16/23 12:50 71 20 156/76 H 94 01/16/23 12:40 65 20 147/75 H 95 01/16/23 12:30 64 20 136/88 95 01/16/23 12:24 97.3 F L 69 20 142/74 H 99 01/16/23 09:11 97.9 F 75 20 168/78 H 92 O2 Del Method O2 Flow Rate 01/16/23 13:00 Nasal Cannula 2 01/16/23 12:50 Nasal Cannula 2 01/16/23 12:40 Nasal Cannula 2 01/16/23 12:30 Nasal Cannula 2 01/16/23 12:24 Oxymask 6 01/16/23 09:11 Room Air Transfer of Care Handoff Completed per policy Notes Mental Status: alert / awake / arousable and participated in evaluation Patient Amnestic to Procedure: Yes Nausea / Vomiting: adequately controlled Pain: adequately controlled Airway Patency, RR, SpO2: stable & adequate BP & HR: stable & adequate Hydration State: stable & adequate Neuraxial Anesthesia: was administered and sensory block is resolving Anesthetic Complications: no major complications apparent and Pt Satisfied with anesthetic care
[2023-01-16] MEDS ORDERED: ALBUTEROL HFA 8 GM INHALER INH PRN (13:45)
[2023-01-16] MEDS ORDERED: HYDROmorphone INJ 0.5 MG/0.5 ML SYR IV PRN (13:45)
[2023-01-16] MEDS ORDERED: bisacodyL 10 MG SUPP PR PRN (13:45)
[2023-01-16] MEDS ORDERED: MAGNESIUM HYDROXIDE SUSP 30 ML UDC PO PRN (13:45)
[2023-01-16] MEDS ORDERED: NALOXONE HCL 0.4 MG/1 ML VIAL/CARP IV PRN (13:45)
[2023-01-16] MEDS ORDERED: oxyCODONE HCL IR 5 MG TAB (IMMEDIATE RELEASE) PO PRN (13:45)
[2023-01-16] MEDS ORDERED: METOCLOPRAMIDE HCL INJ 5 MG/ML 2 ML VIAL IV PRN (13:45)
[2023-01-16] MEDS: SODIUM CHLORIDE 0.9% 1,000 ML IV SCH (14:20)
[2023-01-16] MEDS: ACETAMINOPHEN 500 MG TAB PO SCH (14:59)
[2023-01-16] MEDS: ceFAZolin 2000MG 2,000 MG/15 ML SYR IV SCH (17:18)
[2023-01-16] MEDS: DOCUSATE SODIUM 100 MG CAP PO SCH (19:48)
[2023-01-16] MEDS ORDERED: LOVASTATIN 20 MG TAB PO SCH (21:00)
[2023-01-16] MEDS ORDERED: SENNA 8.6 MG TAB PO SCH (21:00)
--- NOTE | 2023-01-16 22:14 | Hospitalist Consultation ---
Date of Consultation January 16, 2023 Assessment & Plan (1) Status post right knee replacement: VTE/Pain/Bowel management per primary orthopedic team (2) COPD (chronic obstructive pulmonary disease): Patient reports stable although recently treated with antibiotic and steroid course - continue on prednisone 10mg Wean off oxygen as able - Mild post operative hypoxia consistent with prior total knee replacement and able to wean off without issue the following day No wheezing on exam Continue her routine inhalers or hospital formulary equivalent (3) Sleep apnea: Declines CPAP here - did fine after her last knee replacement without this (4) Hypothyroidism: Continue levothyroxine (5) Hypertension: Continue lisinopril History of Present Illness Reason for Consultation: post op management Attending Physician: Tramaine Hewitt MD History of Present Illness Sherry Taylor is a 77 year old female POD # 0 right TKA. Estimated blood loss 10ml. Complications - none. No acute concerns or questions from the patient. No problems following per recent left knee replacement. On recent course of prednisone, Augmentin for COPD exacerbation from 01/03 but she notes her breathing is at her baseline at this time. No recent fever or chills. Allergies Allergy/AdvReac Type Severity Reaction Status Date / Time No Known Allergies Allergy Unknown Verified 01/16/23 08:50 Home Medications Medication Instructions Recorded Confirmed Type albuterol sulfate 90 mcg/actuation 1 inh inhalation QID PRN sob 09/25/22 01/16/23 History aerosol inhaler azithromycin 500 mg tablet 500 mg PO 3XWK 09/25/22 01/16/23 History calcium carbonate 600 mg-vitamin 1 tab PO DAILY 09/25/22 01/16/23 History D3 5 mcg (200 unit) tablet fluticasone propionate 230 2 puff inhalation BID 09/25/22 01/16/23 History mcg-salmeterol 21 mcg/actuation HFA inhaler (Advair HFA) levothyroxine 100 mcg tablet 100 mcg PO QAM 09/25/22 01/16/23 History (Synthroid) lisinopril 10 mg tablet 10 mg PO QAM 09/25/22 01/16/23 History lovastatin 20 mg tablet 20 mg PO HS 09/25/22 01/16/23 History prednisone 10 mg tablet 10 mg PO QAM 09/25/22 01/16/23 History teriparatide 20 mcg/dose (600 20 mcg subcut QPM 09/25/22 01/16/23 History mcg/2.4 mL) subcutaneous pen injector (Forteo) umeclidinium 62.5 mcg/actuation 1 inh inhalation QAM 09/25/22 01/16/23 History blister powder for inhalation (Incruse Ellipta) venlafaxine 75 mg tablet,extended 75 mg PO QAM 09/25/22 01/16/23 History release 24 hr oxycodone 5 mg tablet 5 - 10 mg (1 - 2 x 5 mg) PO 10/11/22 01/16/23 Rx .Q4h-6h PRN pain #30 tabs rivaroxaban 10 mg tablet (Xarelto) 10 mg PO DAILY #30 tabs 10/11/22 01/16/23 Rx acetaminophen 500 mg tablet 1,000 mg PO Q8 PRN Pain 01/04/23 01/16/23 History (Tylenol Extra Strength) amoxicillin 875 mg-potassium 1 tab PO BID 01/04/23 01/16/23 History clavulanate 125 mg tablet cholecalciferol (vitamin D3) 50 50 mcg PO DAILY 01/04/23 01/16/23 History mcg (2,000 unit) tablet (Vitamin D3) cyanocobalamin (vitamin B-12) 500 500 mcg PO DAILY 01/04/23 01/16/23 History mcg tablet Patient History Medical History Osteoporosis Sinus infection saw pcp and given abx treatment, to be finished with prior to dos COPD (chronic obstructive pulmonary disease) well controlled per pt History of Helicobacter pylori infection ~05/2022 has since resolved Anemia Per records Anxiety Depression Pulmonary embolism December 2020 in right lung. treated with anticoagulants and has since resolved. unknown cause, no longer on an anticoagulant Deep vein thrombosis December 2020 in right leg. treated at [facility] with anticoagulants. unknown cause. no longer on anticoagulants. Hypothyroidism Chronic steroid use Hyperlipidemia Hypertension Sarcoidosis [facility] pulmonary. reason for the abx treatment 3x weekly. Stable breathing Asthma "borderline asthma" well controlled with inhalers. Sleep apnea cpap at night Surgical History (Updated 01/17/23 @ 07:11 by Alek Girard MD) History of cardiac cath 20+ yrs ago > no stents History of total knee replacement left History of bladder surgery bladder sling H/O vaginal hysterectomy History of cholecystectomy History of appendectomy History of colonoscopy History of esophagogastroduodenoscopy (EGD) History of vitrectomy left eye History of tonsillectomy History of bronchoscopy Family History Other No family history of adverse response to anesthesia Social History Smoking Status: Former smoker Smoking End Date: 40 yrs ago; Second Hand Exposure: No; Do You Dip or Chew Tobacco: No; Tobacco Cessation Education Requested by Patient: No Hx Alcohol Use: No Hx Substance Use: No Preferred Language: Malay Communication Ability: Effective Head Automatic Sawyer Required: No Beliefs That Will Affect Care: None Current Living Situation: Spouse Other Information That Helps Us Care for You: No Feels Safe at Home: Yes Safety Concerns: Feels Safe At This Time Assistive Devices: Denture - Upper, Denture - Lower and Glasses Review of Systems Review of Systems: All systems reviewed & are unremarkable except as noted in HPI & below Physical Exam Constitutional: WD/WN, vitals as above ENMT: external ear and nose normal, oropharynx normal Respiratory: normal respiratory effort, lungs clear to auscultation Cardiovascular: RRR, no murmur, no edema Gastrointestinal (Abdomen): normal bowel sounds, soft, nontender, no hepatosplenomegaly Musculoskeletal: NV intact distal to operation site Surgical dressing not removed Drain in place Skin: no rashes, warm and dry Neurologic: moves all extremities and awake; not confused Psychiatric: A+Ox3, euthymic affect Results & Data Results & Data Vital Signs (Past 12 Hours) Vital Signs Temp Pulse Pulse Resp BP Pulse Ox O2 Del Method 01/16/23 19:50 36.9 C 65 18 164/74 H 97 Nasal Cannula 01/16/23 16:50 36.5 C 74 18 145/77 H 97 Nasal Cannula 01/16/23 15:45 36.4 C L 75 18 146/70 H 94 Nasal Cannula 01/16/23 14:45 36.6 C 68 18 159/77 H 95 Nasal Cannula 01/16/23 14:33 Nasal Cannula 01/16/23 14:15 36.5 C 72 18 166/72 H 95 Nasal Cannula 01/16/23 13:45 36.5 C 65 16 162/69 H 95 Nasal Cannula 01/16/23 13:30 76 20 144/72 H 94 Nasal Cannula 01/16/23 13:15 66 20 140/80 94 Nasal Cannula 01/16/23 13:00 36.5 C 64 20 142/71 H 94 Nasal Cannula 01/16/23 12:50 71 20 156/76 H 94 Nasal Cannula 01/16/23 12:40 65 20 147/75 H 95 Nasal Cannula 01/16/23 12:30 64 20 136/88 95 Nasal Cannula 01/16/23 12:24 36.3 C L 69 20 142/74 H 99 Oxymask O2 Flow Rate 01/16/23 19:50 2 01/16/23 16:50 2 01/16/23 15:45 2 01/16/23 14:45 2 01/16/23 14:33 2 01/16/23 14:15 2 01/16/23 13:45 2 01/16/23 13:30 2 01/16/23 13:15 2 01/16/23 13:00 2 01/16/23 12:50 2 01/16/23 12:40 2 01/16/23 12:30 2 01/16/23 12:24 6 PG Care Time/CCT Total # of Minutes Spent Total Time Spent with Patient: Total time spent is greater than 50% in coordination of care (as documented) at patient's floor/unit and/or counseling patient: Coding Level of Care Code 73045 IN/OBS CONSULT LVL 3,45M Diagnoses Status post right knee replacement Z96.651 COPD (chronic obstructive pulmonary disease) J44.9 Sleep apnea G47.30 Hypothyroidism E03.9 Hypertension I10
[2023-01-17] MEDS: ACETAMINOPHEN 500 MG TAB PO SCH ×2 (00:44→08:38)
[2023-01-17] MEDS: ceFAZolin 2000MG 2,000 MG/15 ML SYR IV SCH (00:44)
[2023-01-17 06:19] LABS: Hematocrit (blood only) 30.6 % (37.0-47.0); Hemoglobin 9.5 g/dl (12.0-16.0); Mean Corpuscular Hemoglobin 29.1 pg (25.0-34.0); Mean Corpuscular Volume 93.6 fL (80.0-100.0); Platelet Count 223 K/uL (130-400); RDW Coefficient of Variation 13.4 % (11.5-14.5); RDW Standard Deviation 45.7 fL (36.4-46.3); Red Blood Count 3.27 M/uL (4.20-5.40); White Blood Count 15.82 K/ul (4.8-10.8)
[2023-01-17] MEDS ORDERED: LEVOTHYROXINE SODIUM 100 MCG TABLET PO SCH (06:30)
[2023-01-17 06:37] LABS: BUN Creatinine Ratio 21.2 (10-20); Calcium 8.4 mg/dl (8.6-10.3); Creatinine Clr Calc Pharmacy 50.5 ml/min; Est GFR (African American) 62.8 ml/min; Est GFR (Non-African American) 54.2 ml/min; Potassium 4.8 mmol/L (3.5-5.1)
[2023-01-17] MEDS: SODIUM CHLORIDE 0.9% 1,000 ML IV SCH (06:41)
--- NOTE | 2023-01-17 07:15 | Orthopedic Progress Note ---
Date of Service January 17, 2023 Assessment & Plan (1) Status post right knee replacement: Plan: Postop day #1 right total knee arthroplasty -PT/OT -Pain management -A.m. labs: Hemoglobin 9.5 from 11 preop acute blood loss anemia due to surgical loss versus dilutional. Leukocytosis likely reactive due to surgery stress versus perioperative steroids. Patient is asymptomatic. -DVT prophylaxis: SCDs, teds, Xarelto 10 mg daily -Discharge planning: Plan on discharge home with home health. Plan on discharge home today as long as continues to progress well. Admission and Anticipated Discharge Date Admission Date: January 16, 2023 Subjective Patient feeling well overall. Pain is well-controlled. No current complaints. Denies chest pain, shortness breath, nausea/vomiting/diarrhea, headaches or dizziness. Review of Systems Review of Systems: All systems reviewed & are unremarkable except as noted in Subjective Physical Exam Physical Exam: Right knee: Dressings clean, dry, intact. There is a mobile with good dorsiflexion. No calf tenderness. Able to straight leg raise. Distal neurovascular status and sensation is grossly intact. Results & Data Vital Signs (Past 12 Hours) Vital Signs Temp Pulse Resp BP Pulse Ox O2 Del Method O2 Flow Rate 01/17/23 03:28 36.6 C 74 18 166/82 H 98 Nasal Cannula 2 01/16/23 23:00 36.5 C 68 18 165/77 H 97 Nasal Cannula 2 01/16/23 19:50 36.9 C 65 18 164/74 H 97 Nasal Cannula 2
--- NOTE | 2023-01-17 08:16 | Hospitalist Progress Note ---
Date of Service January 17, 2023 Assessment & Plan (1) Status post right knee replacement: Plan: s/p RIGHT TKA with Dr Hewitt 01/16. EBL 10cc Pain/Bowel management per primary orthopedic team DVT proph: Xarelto WBC elevation likely 2nd to steroids/stress w/ surgery. Afebrile Hgb 11.8--> 9.5, acute blood loss anemia from surgery (EBL + 190 cc hemovac output)/dilutional w/ IVF suspected. Patient ASYMPTOMATIC from such Dispo: planning to dc today (2) COPD (chronic obstructive pulmonary disease): Plan: Patient reports stable although recently treated with antibiotic and steroid course - continue on prednisone 10mg Wean off oxygen as able - Mild post operative hypoxia consistent with prior total knee replacement and able to wean off without issue the following day No wheezing on exam, stable on room air. No SOB/sputum production reported Continue her routine inhalers or hospital formulary equivalent (3) Sleep apnea: Plan: Declines CPAP here - did fine after her last knee replacement without this continue at home (4) Hypothyroidism: Plan: Continue levothyroxine (5) Hypertension: Plan: Continue lisinopril Plan Thank you for allowing hospitalist service to participate in the care of Ms Taylor. Hospitalist service will sign off at this time. Please call with any questions/concerns. Admission and Anticipated Discharge Date Admission Date: January 16, 2023 Supervising Physician Co-Signing Physician Notes The patient was not seen by me. The chart was reviewed. Case discussed with BOBUACAR Rodrigues. Agree with assessment and plan Subjective Evaluated this morning, walking back from the [place] with PT, waiting for OT. Anxious for discharge. Reports pain controlled with ordered medications. Some shortness of breath from walking the halls but no increased shortness of breath from her baseline and recovering quickly with rest. On usual inhalers. No hypoxia. No lightheaded/dizziness, chest pain, or other symptoms at this time. Discussed to alert of any increased shortness of breath/other symptoms. Planning for dc after seen by OT. Physical Exam 2 Constitutional: WD/WN, vitals as above ENMT: external ear and nose normal, oropharynx normal Respiratory: normal respiratory effort, lungs clear to auscultation slightly diminished in the bases, no wheezing 96% on ROOM AIR Cardiovascular: RRR, no murmur, no edema Gastrointestinal (Abdomen): normal bowel sounds, soft, nontender, no hepatosplenomegaly Musculoskeletal: dressing to RIGHT knee c/d/i, compartments soft, trace pedal edema, calves nontender drain w/ bloody drainage noted Skin: no rashes, warm and dry Neurologic: moves all extremities and awake; not confused Psychiatric: A+Ox3, euthymic affect Results & Data Results & Data Vital Signs (Past 12 Hours) Vital Signs Temp Pulse Resp BP Pulse Ox O2 Del Method O2 Flow Rate 01/17/23 07:45 Room Air 01/17/23 07:00 36.5 C 67 18 180/99 H 96 Nasal Cannula 2 01/17/23 03:28 36.6 C 74 18 166/82 H 98 Nasal Cannula 2 01/16/23 23:00 36.5 C 68 18 165/77 H 97 Nasal Cannula 2 Laboratory Results 01/17/23 05:54 01/17/23 05:54 Diagnostic Findings Knee X-Ray 01/16/23 12:32 XR knee RT 1 or 2V routine CLINICAL HISTORY: Right knee arthroplasty. COMPARISON: None FINDINGS: Alignment of the total right knee arthroplasty is anatomic. There is no periprosthetic fracture or unexpected radiopaque body. There are skin bettina. Surgical drains are in place. IMPRESSION: Expected findings following total right knee arthroplasty. ACT 112: Negative or not required by law. Electronically signed by: Yordan Bell M.D. 01/16/2023 12:58 PM PG Care Time/CCT Total # of Minutes Spent Total Time Spent with Patient: Total time spent is greater than 50% in coordination of care (as documented) at patient's floor/unit and/or counseling patient: Coding Level of Care Code 20868 SUB INP/OBS CARE 2/35MIN Diagnoses Status post right knee replacement Z96.651 COPD (chronic obstructive pulmonary disease) J44.9 Sleep apnea G47.30 Hypothyroidism E03.9 Hypertension I10
[2023-01-17] MEDS: DOCUSATE SODIUM 100 MG CAP PO SCH (08:39)
[2023-01-17] MEDS ORDERED: UMECLIDINIUM BROMIDE 62.5MCG/BLISTER 7 PUFFS/INHALER INH SCH (09:00)
[2023-01-17] MEDS ORDERED: RIVAROXABAN 10 MG TABLET PO SCH (09:00)
[2023-01-17] MEDS ORDERED: lisinopril 10 MG TAB PO SCH (09:00)
[2023-01-17] MEDS ORDERED: predniSONE 10 MG TABLET PO SCH (09:00)
[2023-01-17] MEDS ORDERED: CHOLECALCIFEROL 1,000 UNITS 25 MCG TAB PO SCH (09:00)
[2023-01-17] MEDS ORDERED: FLUTICASONE/VILANTEROL 100/25MCG 14 PUFFS/INHALER INH SCH (09:00)
[2023-01-17] MEDS ORDERED: CYANOCOBALAMIN (B-12) 500 MCG TABLET PO SCH (09:00)
[2023-01-17] MEDS ORDERED: MULTIVITAMIN TAB PO SCH (09:00)
[2023-01-17] MEDS ORDERED: VENLAFAXINE HCL XR 75 MG CAPXR PO SCH (09:00)
[2023-01-17] MEDS ORDERED: CALCIUM 600MG + VIT D 400 IU TAB PO SCH (09:00)
--- NOTE | 2023-01-17 16:03 | Discharge Summary ---
Date of Service January 17, 2023 Admission HPI Per Admitting Provider 77-year-old female with past medical history significant for hypertension, asthma, hypothyroid, history of DVT who presents with ongoing right knee pain. Pain is interfering with her daily activities. She has failed conservative measures including bracing and injections. She would like to proceed with surgical intervention. Patient denies headaches, sweats, fevers, chills, double vision, blurred vision, cough, sore throat, dysphagia, chest pain, sob, wheezing, n/v/d/c, numbness, tingling, fatigue, urinary symptoms, mood disorders. ROS positive for right knee pain and stiffness. Admission Exam Per Admitting Provider Constitutional: well developed and well nourished; no acute distress Eyes: PERRL, conjunctivae normal, anicteric sclerae ENMT: external ear and nose normal, oropharynx normal Neck: trachea midline, no thyromegaly Respiratory: normal respiratory effort, lungs clear to auscultation Cardiovascular: RRR, no murmur, no edema Musculoskeletal: Right knee: Varus alignment. Mild effusion. Tenderness medial joint line. Stable valgus varus stress test. Range of motion 0 125 degrees. Skin: no rashes, warm and dry Neurologic: patellar DTR's 2+ bilat, sensation intact Psychiatric: A+Ox3, euthymic affect Principal Diagnosis Right knee osteoarthritis Discharge Exam Right knee: Dressings clean, dry, intact. There is a mobile with good dorsiflexion. No calf tenderness. Able to straight leg raise. Distal neurovascular status and sensation is grossly intact. Discharge Data Allergies Allergy/AdvReac Type Severity Reaction Status Date / Time No Known Allergies Allergy Unknown Verified 01/16/23 08:50 Consultations 01/14/23 12:51 Consult Hospitalist Routine Procedures Performed Operation Date: 01/16/23 10:00 Actual Procedures p Right Total Knee Arthroplasty, Cemented(Right) - Tramaine Hewitt MD Ordered Studies 01/16/23 05:00 US - OR guided needle placemen Routine Hospital Course (1) Status post right knee replacement: Postop day #1 right total knee arthroplasty -PT/OT -Pain management -A.m. labs: Hemoglobin 9.5 from 11 preop acute blood loss anemia due to surgical loss versus dilutional. Leukocytosis likely reactive due to surgery stress versus perioperative steroids. Patient is asymptomatic. -DVT prophylaxis: SCDs, teds, Xarelto 10 mg daily -Discharge planning: Plan on discharge home with home health. Plan on discharge home today as long as continues to progress well. Lab Results 01/17/23 Range/Units 05:54 WBC 15.82 H (4.8-10.8) K/ul RBC 3.27 L (4.20-5.40) M/uL Hgb 9.5 L (12.0-16.0) g/dl Hct 30.6 L (37.0-47.0) % MCV 93.6 (80.0-100.0) fL MCH 29.1 (25.0-34.0) pg MCHC 31.0 L (32.0-36.0) g/dL RDW Std Deviation 45.7 (36.4-46.3) fL RDW Coeff of Umesh 13.4 (11.5-14.5) % Plt Count 223 (130-400) K/uL MPV 10.0 (9.4-12.4) fL Sodium 139 (136-145) mmol/L Potassium 4.8 (3.5-5.1) mmol/L Chloride 105 (98-107) mmol/L Carbon Dioxide 29 (21-32) mmol/L Anion Gap 5 (3-11) BUN 21 (6-23) mg/dl Creatinine 0.99 (0.6-1.2) mg/dl Est Cr Clr Drug Dosing 50.5 ml/min Est GFR ( Amer) 62.8 ml/min Est GFR (Non-Af Amer) 54.2 ml/min BUN/Creatinine Ratio 21.2 H (10-20) Glucose 135 H (70-99(Fasting)) mg/dl Calcium 8.4 L (8.6-10.3) mg/dl Total Time Total Time Spent Total Time Spent (In Minutes): 20 Discharge Plan Discharge Items Patient Disposition: Home - Home Health Services Reason For Visit: POST OP Discharge Diagnosis: Right knee osteoarthritis Activity: Per Instructions section Non-emergency contact: Surgeon Call non-emergency contact if: you have any medication questions, your pain is not controlled, you have a fever, your temperature is above 101, your wound has increased redness and your wound has increased drainage Follow-up/Referrals: Srini Rubio, DO [Primary Care Provider] - Diet: Regular Addtl Attending Provider Instructions: ACTIVITY RECOMMENDATIONS: SELF CARE INSTRUCTIONS AFTER TOTAL KNEE REPLACEMENT A. You may need to continue a physical therapy program after discharge from the hospital. There are several options available to you. Your doctor will assist you in selecting the best one for you. 1. An out-patient facility 2 to 3 times a week for therapy or home therapy. 2. Continue working on all exercises taught to you in the hospital. Your goals should be to increase bending of your knee to 90 degrees and beyond and to fully straighten your knee. B. You may progress at your own pace from walking with a walker or crutches to a cane; then to no assistive devices. C. Make walking a part of your daily routine. Be up as much as comfortable with rest periods throughout the day. Rest with leg elevation is very important. Use the ice wrap frequently for the first 3-4 weeks. D. There are no restrictions on activities. You may ride in a car, shop, participate in sheet manager and all social activities. E. Wear the long elastic stockings (VILMA hose) 20 hours a day for 2 weeks after surgery. They can be removed several times a day for laundering and for a bath. F. You may shower, no tub baths until cleared by your doctor. SPECIAL CARE INSTRUCTIONS: VERY IMPORTANT TO READ AND REVIEW A. There are a few signs you need to watch for after you are home. Call [facility] if you notice any of the followin. Increased severe knee pain. Some pain is expected especially when you exercise. 2. Increased swelling in your leg or knee; pain or swelling of the calf muscle in either lower leg. 3. Any fluid drainage from the incision. 4. Shortness of breath or chest pain. B. Please call [facility] at if you have any concerns or questions about your operation or recovery. The doctor or his nurse will return your call promptly. C. You must take antibiotics before dental work, bladder, bowel or other surgery. Your doctor will provide you with a permanent care to carry describing this precaution. IMPORTANT: * REMEMBER TO TAKE ASPIRIN, 81 MG, TWICE DAILY FOR 4 WEEKS UNLESS OTHERWISE D IRECTED. THIS IS YOUR BLOOD THINNER. * HIGH RISK PATIENTS MAY BE PRESCRIBED A STRONGER BLOOD THINNER. THIS WILL BE PROVIDED AT DISCHARGE. * CALL IF INCREASED PAIN, REDNESS, DRAINAGE OR FEVER GREATER THAT 101. * WEAR VILMA HOSE 20 HOURS PER DAY FOR 2 WEEKS. There is a large suction dressing covering your incision. This will help pull any excess drainage from the wound and allow your incision to heal properly. You may shower with this if you can keep the unit outside of the shower. If any bleeding or leakage is noted please call your doctor's office. This will remain on your incision for 7 days and then should be removed. This can be done yourself or by the home nursing staff if applicable. The entire unit is disposable once removed. Once removed, keep incision clean and dry. If redness or drainage is noted, please call your surgeon. IF INCISION IS LEAKING THROUGH DRESSING, CALL THE OFFICE . FOLLOW UP VISIT: If appointment is not already scheduled: Please call [facility] to make a follow-up appointment for 2 weeks after your surgery at . Stand-Alone Forms: My [facility] [employer], Smoking Cessation Medications and DC Order Prescriptions: New Xarelto 10 mg Tablet 10 mg PO DAILY Qty: 30 0RF acetaminophen [Tylenol Extra Strength] 500 mg Tablet 1,000 mg PO Q8H Qty: 60 0RF oxycodone 5 mg Tablet 5 - 10 mg PO .Q4h-6h MDD 6 PRN (Reason: pain) Qty: 30 0RF Rx Instructions: ongoing therapy, Dr. Hewitt supervising Continued prednisone 10 mg Tablet 10 mg PO QAM calcium carbonate-vitamin D3 600 mg-5 mcg (200 unit) Tablet 1 tab PO DAILY lisinopril 10 mg Tablet 10 mg PO QAM lovastatin 20 mg Tablet 20 mg PO HS albuterol sulfate 90 mcg/actuation Hfa Aerosol Inhaler 1 inh INHALATION QID PRN (Reason: sob) azithromycin 500 mg Tablet 500 mg PO 3XWK fluticasone propion-salmeterol [Advair HFA] 230-21 mcg/actuation Hfa Aerosol Inhaler 2 puff INHALATION BID venlafaxine 75 mg Tablet Extended Release 24hr 75 mg PO QAM Forteo 20 mcg/dose (600mcg/2.4mL) Pen Injector 20 mcg SUBCUT QPM Incruse Ellipta 62.5 mcg/actuation Blister With Device 1 inh INHALATION QAM levothyroxine [Synthroid] 100 mcg Tablet 100 mcg PO QAM cyanocobalamin (vitamin B-12) 500 mcg Tablet 500 mcg PO DAILY amoxicillin-pot clavulanate 875-125 mg Tablet 1 tab PO BID Patient Comments: for current sinus infection > to be completed in 6 more days cholecalciferol (vitamin D3) [Vitamin D3] 50 mcg (2,000 unit) Tablet 50 mcg PO DAILY Discontinued Xarelto 10 mg Tablet 10 mg PO DAILY Qty: 30 0RF Patient Comments: finished with this 01/04/23 oxycodone 5 mg Tablet 5 - 10 mg PO .Q4h-6h MDD 6 PRN (Reason: pain) Qty: 30 0RF Rx Instructions: Ongoing therapy, Dr. Hewitt supervising acetaminophen [Tylenol Extra Strength] 500 mg tablet 1,000 mg PO Q8 PRN (Reason: Pain) Admission Data Admit Date/Time: 01/16/23 12:32 Attending Provider: Tramaine Hewitt Admit Provider: Tramaine Hewitt Primary Care Provider: Srini Rubio Other Providers: Alek Navarro Jonathan M.; Emeka Sen; [facility] Other Interventions: Discharge Summary Assessment (RN) Last Done: 01/17/23 09:53
== END 2023-01-17 10:31 | disposition home health service (06) ==
LOC: 3E 07:59 → ASU 07:59

== ENCOUNTER 2023-03-13 12:16 | Inpatient (IN) ==
--- NOTE | 2023-03-08 16:24 | Anesthesiology Consultation ---
Date of Service March 08, 2023 Assessment & Plan (1) Encounter for pre-operative examination: Chart Review Chart Review: Acceptable Risk for Surgery and Patient NOT seen in Pre Admission Testing - Check BSG AM DOS -Infectious Disease screening: Per PAT nursing assessment on 03/08/23. No known infectious disease contacts in past 10 days or current infectious disease symptoms. No recent travel outside the country. Right Total Knee Arthroplasty 01/16/23= Done under SAB at L3-4 with 1 attempt History Surgery Operation Date: 03/13/23 14:35 Proposed Procedures p Right Knee Open Irrigation/Debridement - Tramaine Hewitt MD s Possibly Poly Exchange - Tramaine Hewitt MD Height/Weight Height: 5 ft 6 in Weight: 81.647 kg Allergies Allergy/AdvReac Type Severity Reaction Status Date / Time No Known Allergies Allergy Unknown Verified 03/13/23 12:35 Medications Home Medications Medication Instructions Recorded Confirmed Last Taken albuterol sulfate 90 mcg/actuation 1 inh inhalation QID PRN sob 09/25/22 03/13/23 01/16/23 06:00 aerosol inhaler azithromycin 500 mg tablet 500 mg PO 3XWK 09/25/22 03/13/23 03/11/23 calcium carbonate 600 mg-vitamin 1 tab PO DAILY 09/25/22 03/13/23 03/12/23 09:00 D3 5 mcg (200 unit) tablet fluticasone propionate 230 2 puff inhalation BID 09/25/22 03/13/23 03/13/23 07:00 mcg-salmeterol 21 mcg/actuation HFA inhaler (Advair HFA) levothyroxine 100 mcg tablet 100 mcg PO QAM 09/25/22 03/13/23 03/12/23 21:00 (Synthroid) lisinopril 10 mg tablet 10 mg PO QAM 09/25/22 03/13/23 03/12/23 09:00 lovastatin 20 mg tablet 20 mg PO HS 09/25/22 03/13/23 03/12/23 21:00 prednisone 10 mg tablet 10 mg PO QAM 09/25/22 03/13/23 01/16/23 06:00 teriparatide 20 mcg/dose (600 20 mcg subcut QPM 09/25/22 03/13/23 03/12/23 19:30 mcg/2.4 mL) subcutaneous pen injector (Forteo) umeclidinium 62.5 mcg/actuation 1 inh inhalation QAM 09/25/22 03/13/23 03/13/23 07:00 blister powder for inhalation (Incruse Ellipta) venlafaxine 75 mg tablet,extended 75 mg PO QAM 09/25/22 03/13/23 03/13/23 09:00 release 24 hr cholecalciferol (vitamin D3) 50 50 mcg PO DAILY 01/04/23 03/13/23 03/12/23 09:00 mcg (2,000 unit) tablet (Vitamin D3) cyanocobalamin (vitamin B-12) 500 500 mcg PO DAILY 01/04/23 03/13/23 03/12/23 09:00 mcg tablet oxycodone 5 mg tablet 5 - 10 mg (1 - 2 x 5 mg) PO 01/17/23 03/08/23 Unknown .Q4h-6h PRN pain #30 tabs celecoxib 200 mg capsule 200 mg PO QAM 03/08/23 03/13/23 03/06/23 Active Medications Generic Name Dose Route Start Last Admin Trade Name Freq PRN Reason Stop Dose Admin Acetaminophen 1,000 mg 03/13/23 06:00 03/13/23 13:10 Acetaminophen 500 Mg Tab PO 03/13/23 18:00 1,000 mg PREOP SANDRINE Administration Celecoxib 200 mg 03/13/23 06:00 03/13/23 13:10 Celebrex 200 Mg Cap PO 03/13/23 18:00 200 mg PREOP SANDRINE Administration Dexamethasone Sodium Phosphate 10 mg 03/13/23 06:00 03/13/23 13:11 DexamethasonePf 10 Mg/Ml Vial IV 03/13/23 18:00 10 mg PREOP SANDRINE Administration Famotidine 20 mg 03/13/23 06:00 03/13/23 13:10 Famotidine 20 Mg Tab PO 03/13/23 18:00 20 mg PREOP SANDRINE Administration Gabapentin 300 mg 03/13/23 06:00 03/13/23 13:09 Gabapentin 300 Mg Cap PO 03/13/23 18:00 300 mg PREOP SANDRINE Administration Lactated Ringer's 1,000 mls @ 15 mls/hr 03/13/23 06:00 03/13/23 13:11 Lr IV 03/13/23 18:00 15 mls/hr .Q24H SANDRINE Administration Lactated Ringer's 1,000 mls @ 60 mls/hr 03/13/23 06:00 03/13/23 13:11 Lr IV 03/13/23 22:39 Not Given .[id number] SANDRINE Metoclopramide HCl 10 mg 03/13/23 06:00 03/13/23 13:10 Metoclopramide Hcl 10 Mg Tablet PO 03/13/23 18:00 10 mg PREOP SANDRINE Administration Past Medical History Medical History Anemia Per records Anxiety Asthma "borderline asthma" well controlled with inhalers. Chronic steroid use COPD (chronic obstructive pulmonary disease) well controlled per pt Deep vein thrombosis December 2020 in right leg. treated at [facility] with anticoagulants. unknown cause. no longer on anticoagulants. Depression History of Helicobacter pylori infection ~05/2022 has since resolved Hyperlipidemia Hypertension Hypothyroidism Osteoporosis Pulmonary embolism December 2020 in right lung. treated with anticoagulants and has since resolved. unknown cause, no longer on an anticoagulant Sarcoidosis [facility] pulmonary. reason for the abx treatment 3x weekly. Stable breathing Sleep apnea cpap at night Past Family History Family History Other No family history of adverse response to anesthesia Past Surgical History Surgical History H/O vaginal hysterectomy History of appendectomy History of bladder surgery bladder sling History of bronchoscopy History of cardiac cath 20+ yrs ago > no stents History of cholecystectomy History of colonoscopy History of esophagogastroduodenoscopy (EGD) History of tonsillectomy History of total knee replacement left and right History of vitrectomy left eye Social History Smoking Status: Former smoker tobacco type: cigarettes Do You Dip or Chew Tobacco: No Smoking End Date: 40 yrs ago Hx Alcohol Use: No Hx Substance Use: No substance use type: does not use Physical Exam Vital Signs Last Vital Signs Temp 97.7 F 03/13/23 12:44 Pulse 85 03/13/23 12:44 Resp 20 03/13/23 12:44 BP 147/77 H 03/13/23 12:44 Pulse Ox 95 03/13/23 12:44 O2 Del Method Room Air 03/13/23 12:44 Lab Results Anesthesia Preop Results Results Anesthesia Widget: WBC 9.78 K/ul (4.8-10.8) 03/08/23 Hgb 11.8 g/dl (12.0-16.0) L 03/08/23 Hct 40.4 % (37.0-47.0) 03/08/23 Plt 332 K/uL (130-400) 03/08/23 Na 140 mmol/L (136-145) 03/08/23 K 4.2 mmol/L (3.5-5.1) 03/08/23 Cl 105 mmol/L (98-107) 03/08/23 CO2 27 mmol/L (21-32) 03/08/23 BUN 19 mg/dl (6-23) 03/08/23 Creat 0.93 mg/dl (0.6-1.2) 03/08/23 Glucose Level 128 mg/dl (70-99(Fasting)) H 03/08/23 POC Glucose 117 mg/dl (70-99) H 03/13/23 PT 10.9 Seconds (9.0-12.0) 03/08/23 PTT 24 Seconds (21-31) 03/08/23 INR 1.0 (0.9-1.1) 03/08/23 Urine Color Yellow 03/08/23 Urine Appearance Clear (Clear) 03/08/23 Urine pH 5.5 (4.5-7.5) 03/08/23 Urine Specific [place] 1.014 (1.000-1.030) 03/08/23 Urine Protein Negative (Negative) 03/08/23 Urine Glucose (UA) Negative (Negative) 03/08/23 Urine Ketones Negative (Negative) 03/08/23 Urine Blood Trace (Negative) H 03/08/23 Urine Nitrite Negative (Negative) 03/08/23 Urine Bilirubin Negative (Negative) 03/08/23 Urine Urobilinogen Negative (Negative) 03/08/23 Urine Leukocyte Esterase Negative (Negative) 03/08/23 Urine WBC (Auto) 1-5 /hpf (0-5) 03/08/23 Urine RBC (Auto) 5-10 /hpf (0-4) H 03/08/23 Urine Hyaline Casts (Auto) 0 /lpf (0-5) 03/08/23 Urine Epithelial Cells (Auto) >30 /lpf (0-5) H 03/08/23 Urine Bacteria (Auto) Negative (Negative) 03/08/23 Testing Laboratory Results 03/13/23 12:50 POC Glucose 117 H Anemia - stable from 09/2022 Electrocardiogram Date: 09/28/22 NSR, rate 72 bpm Normal EKG per cardio Chest X-Ray Date: 09/28/22 Progressive densities within the right middle lobe and lingula. This favors scarring. However, follow-up nonemergent chest CT is recommended to exclude an underlying pulmonary opacity/lesion. Echocardiogram Date: 01/03/21 EF: 58% LV Function: normal RWMA: + none Other Findings: no LVH RV cavity size is normal. RV systolic function is normal Grade 1 DD Mild TR No pericardial effusion Estimated PASP 23 mmHg
--- NOTE | 2023-03-12 19:38 | History & Physical Report ---
Date of Service March 12, 2023 Assessment & Plan (1) Postoperative seroma of subcutaneous tissue after non-dermatologic pr ocedure: Plan: Treatment options discussed with the patient. She has a nonpainful knee replacement however ongoing drainage superior incision with small opening. Inflammatory markers are within normal limits. Cannot rule out involvement into the joint. At this point surgical exploration and irrigation and debridement of seroma/hematoma is warranted. Risks, benefits and alternatives to surgery including but not limited to infection, DVT, pain, stiffness, need for revision surgery, damage to blood vessels, damage to nerves, PE, , were discussed with the patient and they wish to proceed. Plan for right knee irrigation and debridement, possible polyethylene exchange DAIR type procedure if joint is involved. Surgery scheduled for 03/13/23 at [facility] with Dr. Hewitt. All questions answered. Patient will follow up post operatively. History of Present Illness Chief Complaint: Right knee pain Primary Care Provider: Srini Rubio DO 77-year-old female with past medical history significant for hypertension, asthma, hypothyroid, history of DVT who underwent a right total knee arthroplasty on January 16. She had an uneventful postoperative course. About 4 weeks postoperatively patient had put all of her weight on the right knee and attempted to stand from a seated position with her knee flexed. She felt a popping sensation in her right knee. She noticed a small area of bleeding with some dried blood the next day. She developed ecchymosis anterior aspect of her knee as well as an area fluctuance consistent with superficial hematoma. She was initially started on antibiotics as a precaution. The bruising resolved however she developed drainage from a small pinhole proximal portion of her incision. This drainage has persisted. At this point surgical irrigation and debridement is warranted. Patient denies headaches, sweats, fevers, chills, double vision, blurred vision, cough, sore throat, dysphagia, chest pain, sob, wheezing, n/v/d/c, numbness, tingling, fatigue, urinary symptoms, mood disorders. ROS positive for right knee drainage. Allergies Allergy/AdvReac Type Severity Reaction Status Date / Time No Known Allergies Allergy Unknown Verified 03/08/23 15:43 Home Medications Medication Instructions Recorded Confirmed Type albuterol sulfate 90 mcg/actuation 1 inh inhalation QID PRN sob 09/25/22 03/08/23 History aerosol inhaler azithromycin 500 mg tablet 500 mg PO 3XWK 09/25/22 03/08/23 History calcium carbonate 600 mg-vitamin 1 tab PO DAILY 09/25/22 03/08/23 History D3 5 mcg (200 unit) tablet fluticasone propionate 230 2 puff inhalation BID 09/25/22 03/08/23 History mcg-salmeterol 21 mcg/actuation HFA inhaler (Advair HFA) levothyroxine 100 mcg tablet 100 mcg PO QAM 09/25/22 03/08/23 History (Synthroid) lisinopril 10 mg tablet 10 mg PO QAM 09/25/22 03/08/23 History lovastatin 20 mg tablet 20 mg PO HS 09/25/22 03/08/23 History prednisone 10 mg tablet 10 mg PO QAM 09/25/22 03/08/23 History teriparatide 20 mcg/dose (600 20 mcg subcut QPM 09/25/22 03/08/23 History mcg/2.4 mL) subcutaneous pen injector (Forteo) umeclidinium 62.5 mcg/actuation 1 inh inhalation QAM 09/25/22 03/08/23 History blister powder for inhalation (Incruse Ellipta) venlafaxine 75 mg tablet,extended 75 mg PO QAM 09/25/22 03/08/23 History release 24 hr cholecalciferol (vitamin D3) 50 50 mcg PO DAILY 01/04/23 03/08/23 History mcg (2,000 unit) tablet (Vitamin D3) cyanocobalamin (vitamin B-12) 500 500 mcg PO DAILY 01/04/23 03/08/23 History mcg tablet oxycodone 5 mg tablet 5 - 10 mg (1 - 2 x 5 mg) PO 01/17/23 03/08/23 Rx .Q4h-6h PRN pain #30 tabs celecoxib 200 mg capsule 200 mg PO QAM 03/08/23 03/08/23 History Past Med/Surg History Medical History Anemia Per records Anxiety Asthma "borderline asthma" well controlled with inhalers. Chronic steroid use COPD (chronic obstructive pulmonary disease) well controlled per pt Deep vein thrombosis December 2020 in right leg. treated at [facility] with anticoagulants. unknown cause. no longer on anticoagulants. Depression History of Helicobacter pylori infection ~05/2022 has since resolved Hyperlipidemia Hypertension Hypothyroidism Osteoporosis Pulmonary embolism December 2020 in right lung. treated with anticoagulants and has since resolved. unknown cause, no longer on an anticoagulant Sarcoidosis [facility] pulmonary. reason for the abx treatment 3x weekly. Stable breathing Sleep apnea cpap at night Surgical History H/O vaginal hysterectomy History of appendectomy History of bladder surgery bladder sling History of bronchoscopy History of cardiac cath 20+ yrs ago > no stents History of cholecystectomy History of colonoscopy History of esophagogastroduodenoscopy (EGD) History of tonsillectomy History of total knee replacement left and right History of vitrectomy left eye Family History Other No family history of adverse response to anesthesia Social History Smoking Status: Former smoker Tobacco Type: Cigarettes Smoking End Date: 40 yrs ago; Second Hand Exposure: No; Do You Dip or Chew Tobacco: No; Tobacco Cessation Education Requested by Patient: No Hx Alcohol Use: No Hx Substance Use: No Preferred Language: Sinhala Communication Ability: Effective House Shorer Required: No Beliefs That Will Affect Care: None Current Living Situation: Spouse Other Information That Helps Us Care for You: No Feels Safe at Home: Yes Safety Concerns: Feels Safe At This Time Assistive Devices: CPAP, Denture - Upper, Denture - Lower and Glasses Review of Systems All systems reviewed & are unremarkable except as noted in HPI & below Physical Exam Constitutional: well developed and well nourished; no acute distress Eyes: PERRL, conjunctivae normal, anicteric sclerae ENMT: external ear and nose normal, oropharynx normal Neck: trachea midline, no thyromegaly Respiratory: normal respiratory effort; no respiratory distress Cardiovascular: Rate/Rhythm: regular rate and regular rhythm Extremities: no calf tenderness and no edema Musculoskeletal: Right knee: Tenderness anterior aspect of her knee. Mild effusion. Range of motion is 0 to 125 degrees. Normal straight leg raise without extensor lag. Stable valgus varus stress test. There is an area of swelling medial aspect region of her Pes anserine bursa. Incision is healing well. There is a small 1 to 2 mm area of open wound with chronic serosanguineous drainage to. There is very incision. No obvious dehiscence. No erythema. No purulence Skin: no rashes, warm and dry Neurologic: patellar DTR's 2+ bilat, sensation intact Psychiatric: A+Ox3, euthymic affect Results & Data Laboratory Results Normal white count at 9.78, sed rate normal at 28, CRP normal at <0.5. Diagnostic Findings Right knee radiographs demonstrate well-fixed right total knee arthroplasty without evidence of loosening. Patella centrally located.
[~2023-03-13 12:16] MED LIST changes: -ACETAMINOPHEN 500 MG TAB PO SCH; -CeleBREX 200 MG CAP PO SCH; -FAMOTIDINE 20 MG TAB PO SCH; -GABAPENTIN 300 MG CAP PO SCH; -LR 500ML BOLUS, THEN 15ML/HR IV SCH; -LR 60ML/HR IV SCH; -METOCLOPRAMIDE HCL 10 MG TABLET PO SCH; -PHENYLEPHRINE HCL 10 MG/ML VIAL ONE; -ROPIVACAINE 0.5% HCL/PF 150 MG, BUPIVACAINE 0.75% MPF 20 ML, EPINEPHrine 30MG/30ML (OR ... INSTIL SCH; -TRANEXAMIC ACID 1,000 MG **IV Intra-op IV SCH; -TRANEXAMIC ACID 1,000 MG **IV Pre-op IV SCH; -ceFAZolin 2000MG 2,000 MG/15 ML SYR IV SCH; -dexAMETHasone 4 MG TAB PO SCH
[2023-03-13] MEDS: GABAPENTIN 300 MG CAP PO SCH (13:09)
[2023-03-13] MEDS: FAMOTIDINE 20 MG TAB PO SCH (13:10)
[2023-03-13] MEDS: METOCLOPRAMIDE HCL 10 MG TABLET PO SCH (13:10)
[2023-03-13] MEDS: CeleBREX 200 MG CAP PO SCH (13:10)
[2023-03-13] MEDS: ACETAMINOPHEN 500 MG TAB PO SCH ×2 (13:10→21:18)
[2023-03-13] MEDS: dexAMETHasone**PF** 10 MG/ML VIAL IV SCH (13:11)
[2023-03-13] MEDS: LR 60ML/HR IV SCH (13:11)
[2023-03-13] MEDS: LR 500ML BOLUS, THEN 15ML/HR IV SCH (13:11)
[2023-03-13] MEDS ORDERED: ePHEDrine sulfate 50 MG/ML AMP IV PRN (13:22)
[2023-03-13] MEDS ORDERED: ONDANSETRON INJ 2 MG/ML 2 ML VIAL IV PRN ×2 (13:22→18:52)
[2023-03-13] MEDS ORDERED: ATROPINE SULFATE 0.1 MG/ML 10ML SYR IV PRN (13:22)
--- NOTE | 2023-03-13 14:19 | History & Physical Bridge Note ---
Date of Service March 13, 2023 History & Physical Bridge Note I have examined the patient, reviewed the History & Physical and in the interval since the performance of the History & Physical I have noted the following changes of clinical significance: no changes noted
[2023-03-13] MEDS: ceFAZolin 2000MG 2,000 MG/15 ML SYR IV SCH ×2 (14:44→21:19)
[2023-03-13] MEDS ORDERED: fentaNYL citrate PF 100 MCG/2 ML VIAL ONE ×2 (14:54→15:45)
[2023-03-13] MEDS: ORTHO JOINT ANESTHETIC ONE (16:29)
[2023-03-13] MEDS: ceFAZolin 330 MG/ML 1 GM VIAL ONE (16:29)
[2023-03-13] MEDS: TRANEXAMIC ACID 1,000 MG **IV Intra-op IV SCH (16:39)
--- NOTE | 2023-03-13 17:24 | Post Operative Brief Note ---
Immediate Post Op Note v1 Date of Surgery March 13, 2023 Pre & Post Diagnosis Pre-Op diagnosis: Right knee hematoma and draining seroma status post recent right knee replacement. History of right knee injury prior to hematoma. Postop diagnosis: Right knee quadriceps tendon and medial retinacular disruption with sinus tract entering knee joint via the tear. Operation Date: 03/13/23 14:35 <No data on this case meets the specified criteria> I identified the patient and participated in the time-out.: Yes Procedure Right knee joint irrigation and debridement with tibial polyethylene exchange and quadriceps tendon and medial retinacular repair. Operation Date: 03/13/23 14:35 <No data on this case meets the specified criteria> Surgeon Tramaine Hewitt MD Historical Guide Bartolo HAMLIN Estimated Blood Loss 20 Findings Consistent with Post-Op Diagnosis Specimens Swab culture subcutaneous fluid Swab culture knee joint fluid Soft tissue knee joint for culture Drains Hemovac Drain (10 Fr. Trocar) Anesthesia Type MAC Spinal Regional Complications none Disposition Disposition: Recovery Room Overlapping Procedure I was immediately available: during the entire case.
[2023-03-13] MEDS: fentaNYL citrate PF 100 MCG/2 ML VIAL IV PRN (17:28)
[2023-03-13] MEDS ORDERED: HYDROmorphone INJ 1 MG/ML SYRINGE IV PRN (17:34)
--- NOTE | 2023-03-13 17:54 | Operative Report ---
Post Operative Report Pre & Post Diagnosis Preoperative diagnosis: Right knee hematoma and seroma with draining sinus tract status post recent total knee replacement status post knee injury prior to hematoma formation. Operation Date: 03/13/23 14:35 <No data on this case meets the specified criteria> Postoperative diagnosis: Right knee quadriceps tendon and medial retinacular disruption with sinus tract communicating with the knee joint via the tendon tear. I identified the patient and participated in the time-out.: Yes Procedure Right knee joint extensive irrigation and debridement, tibial polyethylene exchange, quadriceps tendon repair and medial retinacular repair. Closure over drains. Sarah and Acticoat superficial wound VAC application Operation Date: 03/13/23 14:35 <No data on this case meets the specified criteria> Surgeon Tramaine Hewitt MD Drill Foreman Bartolo HAMLIN Estimated Blood Loss 20 Findings Consistent with Post-Op Diagnosis Specimens Swab subcutaneous space for culture, swab knee joint for culture, soft tissue knee joint for culture. Drains 2 Hemovac Anesthesia Type MAC Spinal Regional Complications none Disposition Disposition: Recovery Room Indications 77-year female 7 weeks post knee replacement who at 4 weeks got up with her leg in a flexed knee position was bearing weight and had immediate swelling in her suprapatellar region. Clinically had a hematoma but had a intact extensor mechanism with no extensor lag. A week later there was a small scab in her incision that opened up and then her wound started to drain small amount of fluid but drainage persisted. She was covered with oral antibiotics feeling that this was a hematoma and seroma that was draining. The drainage continued after another week observation so patient is now scheduled for wound exploration. White blood cell count normal, ESR 28, CRP less than 0.5. No wound erythema and patient has no pain. Description of Procedure Patient was taken to the operating room the size under spinal MAC regional block anesthesia. Pneumatic tourniquet was placed about her moderately obese upper thigh. The leg was sterilely prepped and draped with ChloraPrep. Leg was elevated but not exsanguinated and the pneumatic tourniquet was raised to 350 mmHg. There was a pinhole area where the drainage was coming through and this was opened up extended proximal and distal extending the incision more proximal than the index procedure to fully evaluate the quadriceps tendon. After incising into the subcutaneous tissues there was a fluid collection that was evacuated. It looked like a seroma. This was cultured. After further dissection there was clearly a large disruption of the quadriceps tendon repair extending around the medial retinacular repair extending two thirds [address] the way around the medial patella. The inferior repair was all intact down to the tibial tubercle. The quadriceps was split in superficial and deep layers. The patella was retracted laterally and was relatively tight to translate to a centered position. There was synovitis in the knee joint. There was no evidence of any pus but there was areas of chronic synovial inflammation and some old fibrinous type material throughout the knee. The tibial polyethylene was intact. The patella polyethylene was intact and no loosening of any components. Due to contamination risk due to the tiny sinus tract I felt it was best to do a polyethylene exchange and extensive debridement. After all the cultures were obtained and the knee was copiously irrigated with 3 L of saline solution. Pulsatile lavage was used. Partial electrocautery synovectomy was performed in areas where there was thickened synovial tissue that could be resected. Other areas did not require this. Retractors were placed and curved osteotome was used to remove the tibial polyethylene which help decompress the joint and give further access for debridement. A Versajet was then used over multiple surfaces. This included the posterior capsule. An aqua mantis was utilized to coagulate bleeding after using the Versajet. Further irrigation with 3 more liters of solution now with Ancef placed in the solution was perf ormed. Trial reduction was performed and I felt a constrained component was required as there was some medial laxity now. The size 4 TS trial was placed and I upsized it to a 19 to enhance the stability and this was stable through full range of motion. The knee was irrigated with 3 more liters of solution with Ancef and then all personnel changed gowns and gloves and helmets and the leg was sterilely draped off with the new sterile drapes. The knee was then irrigated with xperience and the triathlon X.3 total stabilizer tibial insert size 4 x 19 mm was inserted followed by placing the stabilization peg within the post. Further irrigation was performed with pulsatile lavage with xperience. 2 Hemovac drains were placed out superior lateral. A lateral release was performed leaving the synovium intact which helped the patella tracking and the quadriceps tendon and medial retinaculum were closed with #1 Vicryl bacterial resistance sutures. I closed the quadriceps tendon upper VMO in 2 layers to reinforce the repair. The remainder of the upper quadriceps tendon and distal medial retinaculum was closed in 1 layer using the #1 Vicryl bacterial resistance suture. Tourniquet was let down at this time and then the subcutaneous tissues were closed into 2-0 Vicryl back to resistance sutures and the skin was closed with bettina and sarah and Acticoat superficial wound VAC was applied. Patient tolerated the procedure well. Bartolo HAMLIN participated as health education assistant and assisted in all aspects of the procedure including soft tissue retraction instrument management wound closure and application superficial wound VAC. I attest to the content of the Intraoperative Record and any orders documented therein. Any exceptions are noted below.
--- NOTE | 2023-03-13 18:05 | Anesthesiology Progress Note ---
Date of Service March 13, 2023 Anesthesia Post Procedure Vital Signs Vital Signs: Temp Pulse Pulse Resp BP BP Pulse Ox 03/13/23 17:55 78 24 121/65 93 03/13/23 17:45 78 19 106/69 98 03/13/23 17:35 83 12 125/62 98 03/13/23 17:25 36.5 C 86 15 134/66 96 03/13/23 12:44 36.5 C 85 20 147/77 H 95 O2 Del Method O2 Flow Rate 03/13/23 17:55 Room Air 03/13/23 17:45 Oxymask 3 03/13/23 17:35 Oxymask 3 03/13/23 17:25 Oxymask 3 03/13/23 12:44 Room Air Pain Intensity Right Knee: Pain Intensity: 6 Transfer of Care Handoff Completed per policy Notes Mental Status: alert / awake / arousable and participated in evaluation Patient Amnestic to Procedure: Yes Nausea / Vomiting: adequately controlled Pain: adequately controlled Airway Patency, RR, SpO2: stable & adequate BP & HR: stable & adequate Hydration State: stable & adequate Anesthetic Complications: no major complications apparent and Pt Satisfied with anesthetic care
--- NOTE | 2023-03-13 18:32 | XRay Report ---
XR knee RT 1 or 2V routine CLINICAL HISTORY: Surgical Post Op TECHNIQUE: 2 views of the right knee were obtained. Comparison: Comparison is made to right knee radiographs 01/16/2023 FINDINGS: Patient is status post total knee arthroplasty revision with expected postsurgical changes including soft tissue swelling and subcutaneous emphysema. No periarticular lucency or hardware fracture is see n. IMPRESSION: Expected postoperative appearance status post revision of total knee arthroplasty. ACT 112: Negative or not required by law. Electronically signed by: Eliezer Freeman M.D. 03/13/2023 6:30 PM
[2023-03-13] MEDS ORDERED: NALOXONE HCL 0.4 MG/1 ML VIAL/CARP IV PRN (18:52)
[2023-03-13] MEDS ORDERED: bisacodyL 10 MG SUPP PR PRN (18:52)
[2023-03-13] MEDS ORDERED: MAGNESIUM HYDROXIDE SUSP 30 ML UDC PO PRN (18:52)
[2023-03-13] MEDS ORDERED: METOCLOPRAMIDE HCL INJ 5 MG/ML 2 ML VIAL IV PRN (18:52)
[2023-03-13] MEDS ORDERED: ALBUTEROL HFA 8 GM INHALER INH PRN (18:52)
[2023-03-13] MEDS ORDERED: HYDROmorphone INJ 0.5 MG/0.5 ML SYR IV PRN (18:52)
[2023-03-13] MEDS: TRANEXAMIC ACID 1,000 MG **IV Pre-op IV SCH (19:35)
--- NOTE | 2023-03-13 19:51 | Hospitalist Consultation ---
Date of Consultation March 13, 2023 Assessment & Plan (1) Postoperative seroma of subcutaneous tissue after non-dermatologic procedure: 77 yo female with PMHx of COPD, osteoporosis, HTN, hypothyroidism, HLD, anxiety, depression, and sleep apnea. She is post-op of R knee joint extensive irrigation and debridement, tibial polyethylene exchange, quadriceps tendon repair and medial retinacular repair. Followed with closure over drains and Jesus/Acticoat superficial wound VAC application. Surgery performed by Dr. Hewitt. #Post-op seroma -Patient is doing well s/p surgery, post-op day 0. Vitals wnl, afebrile. -Bowel regimen, pain control, antibiotics per ortho #COPD -Saturating appropriately on RA. Mild wheezing on exam however has yet to have night time inhalers -cont. home inhalers -cont. daily prednisone #Hypothyroidism -cont. Synthroid #HTN -cont. lisinopril #HLD -cont. statin #Osteoporosis -cont. teriparatide #Anxiety, Depression -cont. venlafaxine #Sleep Apnea -declines cpap while in the hospital DVT ppx: xarelto FEN/GI: regular Code Status: full Dispo: surgical services Thank you for allowing hospitalist service to participate in the care of Ms Taylor. Hospitalist service continue to follow. (2) Status post right knee replacement: (3) Osteoporosis: (4) COPD (chronic obstructive pulmonary disease): (5) Status post left knee replacement: (6) Hypertension: (7) Hypothyroidism: (8) Sleep apnea: (9) Depression: (10) Anxiety: Supervising Physician Co-Signing Physician Notes Attending addendum: I have physically seen this patient, have supervised the medical residents activities, and agree with the H&P unless as otherwise noted. Assessment and Plan: Status post right knee joint extensive irrigation and debridement/tibial polyethylene exchange/quadriceps tendon repair and medial retinacular repair- Patient seen postoperatively is medically stable COPD- Continue prednisone 10 mg p.o. daily Continue routine inhalers: Advair discus, albuterol sulfate as needed DuoNebs every 2 hours as needed Hypertension- Continue lisinopril sounds morning creatinine okay MALINDA- Refusing CPAP at this time Nasal cannula 2 L O2 can be supplemented if patient becomes hypoxic overnight Remaining orders and notations as noted [facility] service will follow along hospital History of Present Illness Reason for Consultation: post op management Attending Physician: Tramaine Hewitt MD History of Present Illness 77 yo female with PMHx of COPD, osteoporosis, HTN, hypothyroidism, HLD, anxiety, depression, and sleep apnea. She is post-op day 0 of R knee joint extensive irrigation and debridement, tibial polyethylene exchange, quadriceps tendon repair and medial retinacular repair followed with closure over drains and Jesus/Acticoat superficial wound VAC application. Surgery performed by Dr. Hewitt. She is doing well after surgery. Has 5/10 pain in R knee but otherwise denies headache, fever, chills, fatigue, cp, sob, abd pain, N/V, extremity numbness/tingling/weakness. Has yet to urinate or have BM. Did eat a meal and consuming liquids without issue. Allergies Allergy/AdvReac Type Severity Reaction Status Date / Time No Known Allergies Allergy Unknown Verified 03/13/23 12:35 Home Medications Medication Instructions Recorded Confirmed Type albuterol sulfate 90 mcg/actuation 1 inh inhalation QID PRN sob 09/25/22 03/13/23 History aerosol inhaler azithromycin 500 mg tablet 500 mg PO 3XWK 09/25/22 03/13/23 History calcium carbonate 600 mg-vitamin 1 tab PO DAILY 09/25/22 03/13/23 History D3 5 mcg (200 unit) tablet fluticasone propionate 230 2 puff inhalation BID 09/25/22 03/13/23 History mcg-salmeterol 21 mcg/actuation HFA inhaler (Advair HFA) levothyroxine 100 mcg tablet 100 mcg PO QAM 09/25/22 03/13/23 History (Synthroid) lisinopril 10 mg tablet 10 mg PO QAM 09/25/22 03/13/23 History lovastatin 20 mg tablet 20 mg PO HS 09/25/22 03/13/23 History prednisone 10 mg tablet 10 mg PO QAM 09/25/22 03/13/23 History teriparatide 20 mcg/dose (600 20 mcg subcut QPM 09/25/22 03/13/23 History mcg/2.4 mL) subcutaneous pen injector (Forteo) umeclidinium 62.5 mcg/actuation 1 inh inhalation QAM 09/25/22 03/13/23 History blister powder for inhalation (Incruse Ellipta) venlafaxine 75 mg tablet,extended 75 mg PO QAM 09/25/22 03/13/23 History release 24 hr cholecalciferol (vitamin D3) 50 50 mcg PO DAILY 01/04/23 03/13/23 History mcg (2,000 unit) tablet (Vitamin D3) cyanocobalamin (vitamin B-12) 500 500 mcg PO DAILY 01/04/23 03/13/23 History mcg tablet oxycodone 5 mg tablet 5 - 10 mg (1 - 2 x 5 mg) PO 01/17/23 03/08/23 Rx .Q4h-6h PRN pain #30 tabs celecoxib 200 mg capsule 200 mg PO QAM 03/08/23 03/13/23 History Patient History Medical History (Updated 03/14/23 @ 07:45 by Bartolo Raymond PA-C) Encounter for pre-operative examination Osteoporosis COPD (chronic obstructive pulmonary disease) well controlled per pt History of Helicobacter pylori infection ~05/2022 has since resolved Anemia Per records Anxiety Depression Pulmonary embolism December 2020 in right lung. treated with anticoagulants and has since resolved. unknown cause, no longer on an anticoagulant Deep vein thrombosis December 2020 in right leg. treated at [facility] with anticoagulants. unknown cause. no longer on anticoagulants. Hypothyroidism Chronic steroid use Hyperlipidemia Hypertension Sarcoidosis [facility] pulmonary. reason for the abx treatment 3x weekly. Stable breathing Asthma "borderline asthma" well controlled with inhalers. Sleep apnea cpap at night Surgical History History of cardiac cath 20+ yrs ago > no stents History of total knee replacement left and right History of bladder surgery bladder sling H/O vaginal hysterectomy History of cholecystectomy History of appendectomy History of colonoscopy History of esophagogastroduodenoscopy (EGD) History of vitrectomy left eye History of tonsillectomy History of bronchoscopy Family History Other No family history of adverse response to anesthesia Social History Smoking Status: Never smoker Tobacco Type: Cigarettes Smoking End Date: 40 yrs ago; Second Hand Exposure: No; Do You Dip or Chew Tobacco: No; Tobacco Cessation Education Requested by Patient: No Hx Alcohol Use: No Hx Substance Use: No Preferred Language: Persian Communication Ability: Effective [place] Di[place] Required: No Beliefs That Will Affect Care: None Current Living Situation: Spouse Other Information That Helps Us Care for You: No Feels Safe at Home: Yes Safety Concerns: Feels Safe At This Time Assistive Devices: CPAP Review of Systems Review of Systems: All systems reviewed & are unremarkable except as noted in HPI & below Physical Exam Physical Exam: Constitutional: in no acute distress, pleasant and normal affect, intact memory. AOx3. Vitals as above. HEENT: No scleral injection or discharge.Moist mucous membranes. Neck: Supple without lymphadenopathy or thyromegaly. Trachea midline. Lungs: +diffuse faint expiratory wheezing. No rales/rhonchi. Good air flow. Cardiac: RRR.No murmurs.No lower extremity edema. 2+ distal peripheral pulses. Abdomen: Soft, nontender, and nondistended.No guarding. No hepatosplenomegaly. MSK: No cyanosis or clubbing. SCDs in place. R knee with wound vac and overlying wrapping. Skin: No abnormal rashes, warm, dry. Neurologic: Grossly intact cranial nerves. Neurovascularly intact. Results & Data Results & Data Vital Signs (Past 12 Hours) Vital Signs Temp Pulse Pulse Resp BP BP Pulse Ox 03/13/23 19:15 36.6 C 73 18 127/63 93 03/13/23 19:00 78 21 132/73 94 03/13/23 18:30 80 17 113/67 95 03/13/23 18:15 37.4 C 82 18 108/60 94 03/13/23 18:05 79 12 95/61 L 92 03/13/23 17:55 78 24 121/65 93 03/13/23 17:45 78 19 106/69 98 03/13/23 17:35 83 12 125/62 98 03/13/23 17:25 36.5 C 86 15 134/66 96 03/13/23 12:44 36.5 C 85 20 147/77 H 95 O2 Del Method O2 Flow Rate 03/13/23 19:15 Room Air 03/13/23 19:00 Nasal Cannula 2 03/13/23 18:30 Nasal Cannula 2 03/13/23 18:15 Nasal Cannula 2 03/13/23 18:05 Nasal Cannula 2 03/13/23 17:55 Room Air 01/24/24 17:45 Oxymask 3 03/13/23 17:35 Oxymask 3 03/13/23 17:25 Oxymask 3 03/13/23 12:44 Room Air Laboratory Results Laboratory Results POC Glucose 117 mg/dl (70-99) H 03/13/23 12:50 Impressions Knee X-Ray 03/13/23 17:32 XR knee RT 1 or 2V routine CLINICAL HISTORY: Surgical Post Op TECHNIQUE: 2 views of the right knee were obtained. Comparison: Comparison is made to right knee radiographs 01/16/2023 FINDINGS: Patient is status post total knee arthroplasty revision with expected postsurgical changes including soft tissue swelling and subcutaneous emphysema. No periarticular lucency or hardware fracture is seen. IMPRESSION: Expected postoperative appearance status post revision of total knee arthroplasty. ACT 112: Negative or not required by law. Electronically signed by: Eliezer Freeman M.D. 03/13/2023 6:30 PM Resident Activity Tracking Resident Involvement: Resident Care Provided Care Provided: [facility]
[2023-03-13] MEDS: SODIUM CHLORIDE 0.9% 1,000 ML IV SCH (20:22)
[2023-03-13] MEDS: DOCUSATE SODIUM 100 MG CAP PO SCH (20:22)
[2023-03-13] MEDS: oxyCODONE HCL IR 5 MG TAB (IMMEDIATE RELEASE) PO PRN (20:22)
[2023-03-13] MEDS: LOVASTATIN 20 MG TAB PO SCH (21:18)
[2023-03-13] MEDS: SENNA 8.6 MG TAB PO SCH (21:18)
[2023-03-14] MEDS: LEVOTHYROXINE SODIUM 100 MCG TABLET PO SCH (05:53)
[2023-03-14] MEDS: MULTIVITAMIN TAB PO SCH (07:44)
[2023-03-14] MEDS: CALCIUM 600MG + VIT D 400 IU TAB PO SCH (07:45)
[2023-03-14] MEDS: CYANOCOBALAMIN (B-12) 500 MCG TABLET PO SCH (07:45)
[2023-03-14] MEDS: predniSONE 10 MG TABLET PO SCH (07:45)
[2023-03-14] MEDS: RIVAROXABAN 10 MG TABLET PO SCH (07:45)
[2023-03-14] MEDS: lisinopril 10 MG TAB PO SCH (07:45)
[2023-03-14] MEDS: VENLAFAXINE HCL XR 75 MG CAPXR PO SCH (07:45)
[2023-03-14] MEDS: FLUTICASONE/VILANTEROL 200/25MCG 14 PUFFS/INHALER INH SCH (07:46)
[2023-03-14] MEDS: UMECLIDINIUM BROMIDE 62.5MCG/BLISTER 7 PUFFS/INHALER INH SCH (07:46)
[2023-03-14] MEDS: CHOLECALCIFEROL 25 MCG (1000 UNITS) TAB PO SCH (07:46)
--- NOTE | 2023-03-14 07:47 | Orthopedic Progress Note ---
Date of Service March 14, 2023 Assessment & Plan (1) Traumatic medial retinacular tear of right knee: Plan: Patient is postop day 1 right knee I&D, poly exchange, medial retinacular repair; 8 weeks status post right total knee arthroplasty -PT/OT: Gentle range of motion, weightbearing as tolerated -Pain management as written -DVT prophylaxis: SCDs, teds, Xarelto 10 mg daily -A.m. labs are pending -Intraoperative cultures are pending. Patient's preop inflammatory markers were within normal limits. Will continue with IV antibiotics pending culture results. -Discharge planning: Plan on discharge home likely with home health. (2) Postoperative seroma of subcutaneous tissue after non-dermatologic procedure: (3) Status post right knee replacement: Admission and Anticipated Discharge Date Admission Date: March 13, 2023 Subjective Patient is postop day #1 right knee. Overall she is feeling well, mild soreness. No other complaints. Denies chest pain, shortness of breath, nausea/vomiting/diarrhea, headaches/dizziness, fever or chills. Review of Systems Review of Systems: All systems reviewed & are unremarkable except as noted in Subjective Physical Exam Physical Exam: Right knee: Dressings clean, dry, intact. Toes are mobile with good dorsiflexion. No calf tenderness. Able to do a straight leg raise. Distal neurovascular status and sensation is grossly intact. Results & Data Vital Signs (Past 12 Hours) Vital Signs Temp Pulse Pulse Resp BP BP Pulse Ox 03/14/23 07:42 36.4 C L 65 16 135/58 L 95 03/14/23 03:03 36.4 C L 75 18 128/66 93 03/13/23 21:22 36.8 C 75 18 125/65 94 03/13/23 21:15 36.4 C L 75 18 122/63 94 03/13/23 20:17 36.4 C L 72 18 125/63 95 03/13/23 19:45 36.5 C 75 18 124/66 93 O2 Del Method 03/14/23 07:42 Room Air 03/14/23 03:03 Room Air 03/13/23 21:22 Room Air 03/13/23 21:15 Room Air 03/13/23 20:17 Room Air 03/13/23 19:45 Room Air (1) Traumatic medial retinacular tear of right knee Encounter type: subsequent encounter Qualified Code(s): S86.811D - Strain of other muscle(s) and tendon(s) at lower leg level, right leg, subsequent encounter
[2023-03-14 08:22] LABS: Hematocrit (blood only) 33.3 % (37.0-47.0); Hemoglobin 10.1 g/dl (12.0-16.0); Mean Corpuscular Hemoglobin 29.4 pg (25.0-34.0); Mean Corpuscular Hgb Conc 30.3 g/dL (32.0-36.0); Mean Corpuscular Volume 97.1 fL (80.0-100.0); Mean Platelet Volume 9.7 fL (9.4-12.4); Platelet Count 251 K/uL (130-400); RDW Coefficient of Variation 14.8 % (11.5-14.5); Red Blood Count 3.43 M/uL (4.20-5.40); White Blood Count 12.31 K/ul (4.8-10.8)
[2023-03-14 08:45] LABS: BUN Creatinine Ratio 21.4 (10-20); Calcium 9.1 mg/dl (8.6-10.3); Creatinine Clr Calc Pharmacy 46.9 ml/min; Est GFR (African American) 59.9 ml/min; Est GFR (Non-African American) 51.7 ml/min; Potassium 4.6 mmol/L (3.5-5.1)
--- NOTE | 2023-03-14 15:32 | Hospitalist Progress Note ---
Date of Service March 14, 2023 Assessment & Plan (1) Postoperative seroma of subcutaneous tissue after non-dermatologic procedure: Plan: 77 yo female with PMHx of COPD, osteoporosis, HTN, hypothyroidism, HLD, anxiety, depression, and sleep apnea. Sherry had right TKA 8 weeks ago. She is post-op from R knee joint extensive irrigation and debridement, tibial polyethylene exchange, quadriceps tendon repair and medial retinacular repair. Followed with closure over drains and Jesus/Acticoat superficial wound VAC application. Surgery performed by Dr. Hewitt. #Post-op seroma -Patient is doing well s/p surgery, post-op day 1. Vitals wnl, afebrile. -Bowel regimen, pain control, antibiotics per ortho -did not feel well with oxycodone - flushing, lightheadedness. I stopped this and ordered tramadol, dose may need increase, continue scheduled APAP -on cefazolin pending operative cultures #Asthma/COPD Reviewed outpatient pulmonary note from 2022 - Marely Caruso. 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 Bronchiectasis. Hx PE Steroid dependence -doing well no wheezing today, not in exacerbation -cont. home inhalers -cont daily prednisone - appears chronically on this dose, no longer on suppressive azithromycin per home med list #Hypothyroidism -cont. Synthroid #HTN -cont. lisinopril #HLD -cont. statin #Osteoporosis -cont. teriparatide #Anxiety, Depression -cont. venlafaxine #Sleep Apnea -declines cpap while in the hospital -has home machine? DVT ppx: xarelto 10 mg - continue (2) Status post right knee replacement: (3) Osteoporosis: (4) COPD (chronic obstructive pulmonary disease): (5) Status post left knee replacement: (6) Hypertension: (7) Hypothyroidism: (8) Sleep apnea: (9) Depression: (10) Anxiety: Admission and Anticipated Discharge Date Admission Date: March 13, 2023 Subjective [place] flushed and lightheaded after taking oxycodone. Reports she does well with tramadol. RN working on moving clots out of hemovac drain. No dyspnea or chest pain. No nausea. R postop knee pain present, improved with APAP but needed something stronger to tolerate mobility. Physical Exam 2 Physical Exam: PHYSICAL EXAMINATION Last 24h vital signs reviewed, see documentation in flowsheet General: sitting up in bed appears mildly flushed and anxious, multiple family members are in the room HEENT: Normocephalic, atraumatic, pupils round and equal, sclerae anicteric, no conjunctival injection, moist mucus membranes Lungs: Normal respiratory effort. prolonged expiratory phase Clear to auscultation bilaterally. No RRW Heart: Regular rate and rhythm, no murmurs. No JVD Abdomen: Soft, nontender, nondistended. Bowel sounds present. Extremities: Warm, dry, well-perfused. No extremity edema. right knee in surgical dressing and covered with Dani wrap Hemovac drain in place Neuro: Alert and oriented x 4, face symmetric, moves 4 extremities well Psych: Normal affect and behavior Results & Data Results & Data Vital Signs (Past 12 Hours) Vital Signs Temp Pulse Resp BP Pulse Ox O2 Del Method 03/14/23 14:04 36.7 C 66 18 164/68 H 97 Room Air 03/14/23 11:30 36.4 C L 74 16 142/60 H 94 Room Air 03/14/23 08:00 Room Air 03/14/23 07:42 36.4 C L 65 16 135/58 L 95 Room Air Laboratory Results 03/14/23 08:06 03/14/23 08:06 PG Care Time/CCT Total # of Minutes Spent Total Time Spent with Patient: Total time spent is greater than 50% in coordination of care (as documented) at patient's floor/unit and/or counseling patient: Coding Level of Care Code 07535 SUB INP/OBS CARE 2/35MIN Diagnoses Postoperative seroma of subcutaneous tissue after non-dermatologic procedure L76.34 Status post right knee replacement Z96.651 Osteoporosis M81.0 COPD (chronic obstructive pulmonary disease) J44.9 Status post left knee replacement Z96.652 Hypertension I10 Hypothyroidism E03.9 Sleep apnea G47.30 Depression F32.A Anxiety F41.9
--- NOTE | 2023-03-15 06:23 | Billing Data ---
Date of Service March 15, 2023 Coding Level of Care Code 13226 IN/OBS CONSULT LVL 3,45M
--- NOTE | 2023-03-15 07:38 | Orthopedic Progress Note ---
Date of Service March 15, 2023 Assessment & Plan (1) Traumatic medial retinacular tear of right knee: Plan: Patient is postop day 2 right knee I&D, poly exchange, medial retinacular repair; 8 weeks status post right total knee arthroplasty -PT/OT: Gentle range of motion, weightbearing as tolerated -Pain management as written -DVT prophylaxis: SCDs, teds, Xarelto 10 mg daily -A.m. labs hemoglobin 10.1 from 11.8 preop yesterday, acute blood loss anemia due to surgical loss versus dilutional. Patient is asymptomatic. -Intraoperative cultures no growth as of yesterday. Patient's preop inflammatory markers were within normal limits. Will continue with IV antibiotics pending culture results. -Discharge planning: Plan on discharge home likely with home health. If cultures continue to be negative can discharge home with oral antibiotics today. Will follow cultures. (2) Postoperative seroma of subcutaneous tissue after non-dermatologic procedure: (3) Status post right knee replacement: Admission and Anticipated Discharge Date Admission Date: March 13, 2023 Subjective Patient feeling well this morning. Pain is controlled. No other complaints. Denies chest pain, shortness of breath, nausea/vomiting/diarrhea, headaches or dizziness. Review of Systems Review of Systems: All systems reviewed & are unremarkable except as noted in Subjective Physical Exam Physical Exam: Right knee: Dressings clean, dry, intact. Toes are mobile with good dorsiflexion. No calf tenderness. Able to do a straight leg raise. Distal neurovascular status and sensation is grossly intact. Results & Data Vital Signs (Past 12 Hours) Vital Signs Temp Pulse Pulse Resp BP Pulse Ox O2 Del Method 03/15/23 06:56 36.8 C 75 16 158/69 H 94 Room Air 03/15/23 04:02 36.8 C 77 16 136/64 94 Room Air 03/15/23 00:36 36.5 C 80 16 153/71 H 93 Room Air 03/14/23 22:00 Room Air 03/14/23 19:42 36.5 C 81 18 150/57 H 94 Room Air Diagnostic Findings Name: XENA PINEDA Acct: [id number] Status: AD[place] : 1945 [facility] [place]: 03/13/23 Age: 77 Sex: F Dis Date: Loc: Medical/Surgical/Ortho 3 [facility] Rm/Bed: E312-1 Spec: [id number] Collected: 03/13/23 Received: 03/13/[address]: Tramaine Hewitt M.D. Source: Knee OV Order: Ordered: Aer/Charlette Cult/Sm Comments: Comment 1. Right Knee Joint Fluid Procedure Result Verified Site Gram Stain Final 03/14/23 Gram Stain Result Many WBCs Seen No Organisms Seen Aero/Charlette Cult Preliminary 03/14/23 No growth to date. (1) Traumatic medial retinacular tear of right knee Encounter type: subsequent encounter Qualified Code(s): S86.811D - Strain of other muscle(s) and tendon(s) at lower leg level, right leg, subsequent encounter
[2023-03-15] MEDS: traMADol HCL 50 MG TABLET PO PRN (12:59)
--- NOTE | 2023-03-15 17:29 | Hospitalist Progress Note ---
Date of Service March 15, 2023 Assessment & Plan (1) Postoperative seroma of subcutaneous tissue after non-dermatologic pr ocedure: Plan: 77 yo female with PMHx of COPD, osteoporosis, HTN, hypothyroidism, HLD, anxiety, depression, and sleep apnea. She is post-op of R knee joint extensive irrigation and debridement, tibial polyethylene exchange, quadriceps tendon repair and medial retinacular repair. Followed with closure over drains and Jesus/Acticoat superficial wound VAC application. Surgery performed by Dr. Hewitt. #Post-op seroma -Patient is doing well s/p surgery, remains afebrile, cultures Gram stain negative no growth to date discharging home today per orthopedics -Bowel regimen, pain control, antibiotics per ortho #COPD, bronchiectasis, sarcoidosis -Saturating appropriately on RA. not wheezing -cont. home inhalers -cont. daily prednisone takes 10 mg chronically #Hypothyroidism -cont. Synthroid #HTN -cont. lisinopril #HLD -cont. statin #Osteoporosis -cont. teriparatide #Anxiety, Depression -cont. venlafaxine #Sleep Apnea - resume home CPAP DVT ppx: xarelto (2) Status post right knee replacement: (3) Osteoporosis: (4) COPD (chronic obstructive pulmonary disease): (5) Status post left knee replacement: (6) Hypertension: (7) Hypothyroidism: (8) Sleep apnea: (9) Depression: (10) Anxiety: Admission and Anticipated Discharge Date Admission Date: March 13, 2023 Subjective doing much better today, pain has been controlled with acetaminophen. Lightheadedness dizziness and flushing resolved after stopping oxycodone. Right Hemovac drain functioning normally at this time. No chest pain or shortness of breath anticipating home today Physical Exam Physical Exam: PHYSICAL EXAMINATION Last 24h vital signs reviewed, see documentation in flowsheet General: sitting up in bed much more comfortable and calm no distress HEENT: Normocephalic, atraumatic, pupils round and equal, sclerae anicteric, no conjunctival injection, moist mucus membranes Lungs: Normal respiratory effort. Clear to auscultation bilaterally. No RRW Heart: Regular rate and rhythm, no murmurs. No JVD Abdomen: Soft, nontender, nondistended. Bowel sounds present. Extremities: Warm, dry, well-perfused. No extremity edema. right knee in surgical dressing and covered with Dani wrap Hemovac drain in place Neuro: Alert and oriented x 4, face symmetric, moves 4 extremities well Psych: Normal affect and behavior Results & Data Results & Data Vital Signs (Past 12 Hours) Vital Signs Temp Pulse Pulse Resp BP BP Pulse Ox 03/15/23 13:23 36.8 C 75 80 16 158/69 H 128/66 94 03/15/23 06:56 36.8 C 75 16 158/69 H 94 O2 Del Method 03/15/23 13:23 03/15/23 06:56 Room Air PG Care Time/CCT Total # of Minutes Spent Total Time Spent with Patient: Total time spent is greater than 50% in coordination of care (as documented) at patient's floor/unit and/or counseling patient: Coding Level of Care Code 02851 SUB INP/OBS CARE 03/14MIN Diagnoses Postoperative seroma of subcutaneous tissue after non-dermatologic procedure L76.34 Status post right knee replacement Z96.651 Osteoporosis M81.0 COPD (chronic obstructive pulmonary disease) J44.9 Status post left knee replacement Z96.652 Hypertension I10 Hypothyroidism E03.9 Sleep apnea G47.30 Depression F32.A Anxiety F41.9
--- NOTE | 2023-03-18 19:45 | Discharge Summary ---
Date of Service March 18, 2023 Admission HPI Per Admitting Provider 77-year-old female with past medical history significant for hypertension, asthma, hypothyroid, history of DVT who underwent a right total knee arthroplasty on January 16. She had an uneventful postoperative course. About 4 weeks postoperatively patient had put all of her weight on the right knee and attempted to stand from a seated position with her knee flexed. She felt a popping sensation in her right knee. She noticed a small area of bleeding with some dried blood the next day. She developed ecchymosis anterior aspect of her knee as well as an area fluctuance consistent with superficial hematoma. She was initially started on antibiotics as a precaution. The bruising resolved however she developed drainage from a small pinhole proximal portion of her incision. This drainage has persisted. At this point surgical irrigation and debridement is warranted. Patient denies headaches, sweats, fevers, chills, double vision, blurred vision, cough, sore throat, dysphagia, chest pain, sob, wheezing, n/v/d/c, numbness, tingling, fatigue, urinary symptoms, mood disorders. ROS positive for right knee drainage. Admission Exam Per Admitting Provider Constitutional: well developed and well nourished; no acute distress Eyes: PERRL, conjunctivae normal, anicteric sclerae ENMT: external ear and nose normal, oropharynx normal Neck: trachea midline, no thyromegaly Respiratory: normal respiratory effort; no respiratory distress Cardiovascular: Rate/Rhythm: regular rate and regular rhythm Extremities: no calf tenderness and no edema Musculoskeletal: Right knee: Tenderness anterior aspect of her knee. Mild effusion. Range of motion is 0 to 125 degrees. Normal straight leg raise without extensor lag. Stable valgus varus stress test. There is an area of swelling medial aspect region of her Pes anserine bursa. Incision is healing well. There is a small 1 to 2 mm area of open wound with chronic serosanguineous drainage to. There is very incision. No obvious dehiscence. No erythema. No purulence Skin: no rashes, warm and dry Neurologic: patellar DTR's 2+ bilat, sensation intact Psychiatric: A+Ox3, euthymic affect Principal Diagnosis Right knee drainage, medial retinaculum tear Discharge Exam Right knee: Dressings clean, dry, intact. Toes are mobile with good dorsiflexion. No calf tenderness. Able to do a straight leg raise. Distal neurovascular status and sensation is grossly intact. Discharge Data Allergies Allergy/AdvReac Type Severity Reaction Status Date / Time No Known Allergies Allergy Unknown Verified 03/13/23 12:35 Consultations 03/12/23 09:51 Consult Hospitalist Routine Procedures Performed Operation Date: 03/13/23 14:35 Actual Procedures p Right Knee Open Irrigation/Debridement(Right) - Tramaine Hewitt MD s Poly Exchange(Right) - Tramaine Hewitt MD Ordered Studies 03/13/23 05:00 US - OR guided needle placemen Routine Hospital Course (1) Traumatic medial retinacular tear of right knee: Patient is postop day 2 right knee I&D, poly exchange, medial retinacular repair; 8 weeks status post right total knee arthroplasty -PT/OT: Gentle range of motion, weightbearing as tolerated -Pain management as written -DVT prophylaxis: SCDs, teds, Xarelto 10 mg daily -A.m. labs hemoglobin 10.1 from 11.8 preop yesterday, acute blood loss anemia due to surgical loss versus dilutional. Patient is asymptomatic. -Intraoperative cultures no growth as of yesterday. Patient's preop inflammatory markers were within normal limits. Will continue with IV antibiotics pending culture results. -Discharge planning: Plan on discharge home likely with home health. If cultures continue to be negative can discharge home with oral antibiotics today. Will follow cultures. Patient is postop day 1 right knee I&D, poly exchange, medial retinacular re pair; 8 weeks status post right total knee arthroplasty -PT/OT: Gentle range of motion, weightbearing as tolerated -Pain management as written -DVT prophylaxis: SCDs, teds, Xarelto 10 mg daily -A.m. labs are pending -Intraoperative cultures are pending. Patient's preop inflammatory markers were within normal limits. Will continue with IV antibiotics pending culture results. -Discharge planning: Plan on discharge home likely with home health. Comments: Comment 1. Right Knee Joint Fluid Procedure Result Verified Site Gram Stain Final 03/14/23-08 Gram Stain Result Many WBCs Seen No Organisms Seen Aero/Charlette Cult Final 03/18/23-0842 No growth Lab Results 03/13/23 03/14/23 Range/Units 12:50 08:06 WBC 12.31 H (4.8-10.8) K/ul RBC 3.43 L (4.20-5.40) M/uL Hgb 10.1 L (12.0-16.0) g/dl Hct 33.3 L (37.0-47.0) % MCV 97.1 (80.0-100.0) fL MCH 29.4 (25.0-34.0) pg MCHC 30.3 L (32.0-36.0) g/dL RDW Std Deviation 53.0 H (36.4-46.3) fL RDW Coeff of Umesh 14.8 H (11.5-14.5) % Plt Count 251 (130-400) K/uL MPV 9.7 (9.4-12.4) fL Sodium 138 (136-145) mmol/L Potassium 4.6 (3.5-5.1) mmol/L Chloride 103 (98-107) mmol/L Carbon Dioxide 28 (21-32) mmol/L Anion Gap 7 (3-11) BUN 22 (6-23) mg/dl Creatinine 1.03 (0.6-1.2) mg/dl Est Cr Clr Drug Dosing 46.9 ml/min Est GFR ( Amer) 59.9 ml/min Est GFR (Non-Af Amer) 51.7 ml/min BUN/Creatinine Ratio 21.4 H (10-20) Glucose 136 H (70-99(Fasting)) mg/dl POC Glucose 117 H (70-99) mg/dl Calcium 9.1 (8.6-10.3) mg/dl (2) Postoperative seroma of subcutaneous tissue after non-dermatologic procedure: (3) Status post right knee replacement: Total Time Total Time Spent Total Time Spent (In Minutes): 20 Discharge Plan Discharge Items Patient Disposition: Home - Self-Care Reason For Visit: POST SURGICAL CARE Discharge Diagnosis: Right knee postop seroma, medial retinacular and quad tendon tear Activity: Per Instructions section Non-emergency contact: Surgeon Call non-emergency contact if: you have any medication questions, your pain is not controlled, you have a fever, your temperature is above 101, your wound has increased redness and your wound has increased drainage Follow-up/Referrals: Srini Rubio, [Primary Care Provider] - Diet: Regular Addtl Attending Provider Instructions: ACTIVITY RECOMMENDATIONS: SELF CARE INSTRUCTIONS AFTER TOTAL KNEE REPLACEMENT A. You may need to continue a physical therapy program after discharge from the hospital. There are several options available to you. Your doctor will assist you in selecting the best one for you. 1. An out-patient facility 2 to 3 times a week for therapy or home therapy. 2. Continue working on all exercises taught to you in the hospital. Your goals should be to increase bending of your knee to 90 degrees and beyond and to fully straighten your knee. B. You may progress at your own pace from walking with a walker or crutches to a cane; then to no assistive devices. C. Make walking a part of your daily routine. Be up as much as comfortable with rest periods throughout the day. Rest with leg elevation is very important. Use the ice wrap frequently for the first 3-4 weeks. D. There are no restrictions on activities. You may ride in a car, shop, participate in gas turbine mechanic and all social activities. E. Wear the long elastic stockings (VILMA hose) 20 hours a day for 2 weeks after surgery. They can be removed several times a day for laundering and for a bath. F. You may shower, no tub baths until cleared by your doctor. SPECIAL CARE INSTRUCTIONS: VERY IMPORTANT TO READ AND REVIEW A. There are a few signs you need to watch for after you are home. Call [facility] if you notice any of the followin. Increased severe knee pain. Some pain is expected especially when you exercise. 2. Increased swelling in your leg or knee; pain or swelling of the calf muscle in either lower leg. 3. Any fluid drainage from the incision. 4. Shortness of breath or chest pain. B. Please call [facility] at if you have any concerns or questions about your operation or recovery. The doctor or his nurse will return your call promptly. C. You must take antibiotics before dental work, bladder, bowel or other surgery. Your doctor will provide you with a permanent care to carry describing this precaution. IMPORTANT: * REMEMBER TO TAKE ASPIRIN, 81 MG, TWICE DAILY FOR 4 WEEKS UNLESS OTHERWISE DIRECTED. THIS IS YOUR BLOOD THINNER. * HIGH RISK PATIENTS MAY BE PRESCRIBED A STRONGER BLOOD THINNER. THIS WILL BE PROVIDED AT DISCHARGE. * CALL IF INCREASED PAIN, REDNESS, DRAINAGE OR FEVER GREATER THAT 101. * WEAR VILMA HOSE 20 HOURS PER DAY FOR 2 WEEKS. There is a large suction dressing covering your incision. This will help pull any excess drainage from the wound and allow your incision to heal properly. You may shower with this if you can keep the unit outside of the shower. If any bleeding or leakage is noted please call your doctor's office. This will remain on your incision for 7 days and then should be removed. This can be done yourself or by the home nursing staff if applicable. The entire unit is disposable once removed. Once removed, keep incision clean and dry. If redness or drainage is noted, please call your surgeon. IF INCISION IS LEAKING THROUGH DRESSING, CALL THE OFFICE . FOLLOW UP VISIT: If appointment is not already scheduled: Please call [facility] to make a follow-up appointment for 2 weeks after your surgery at . Stand-Alone Forms: My [employer], Smoking Cessation Medications and DC Order Prescriptions: New acetaminophen [Tylenol Extra Strength] 500 mg Tablet 1,000 mg PO Q8 Qty: 60 0RF Xarelto 10 mg Tablet 10 mg PO DAILY Qty: 28 0RF tramadol 50 mg Tablet 50 mg PO Q4H MDD 5 PRN (Reason: pain) Qty: 30 0RF Rx Instructions: Ongoing therapy, Dr. Hewitt supervising cefadroxil 500 mg capsule 500 mg PO BID Qty: 28 0RF Continued prednisone 10 mg Tablet 10 mg PO QAM calcium carbonate-vitamin D3 600 mg-5 mcg (200 unit) Tablet 1 tab PO DAILY lisinopril 10 mg Tablet 10 mg PO QAM lovastatin 20 mg Tablet 20 mg PO HS albuterol sulfate 90 mcg/actuation Hfa Aerosol Inhaler 1 inh INHALATION QID PRN (Reason: sob) azithromycin 500 mg Tablet 500 mg PO 3XWK fluticasone propion-salmeterol [Advair HFA] 230-21 mcg/actuation Hfa Aerosol Inhaler 2 puff INHALATION BID venlafaxine 75 mg Tablet Extended Release 24hr 75 mg PO QAM teriparatide [Forteo] 20 mcg/dose (600mcg/2.4mL) Pen Injector 20 mcg SUBCUT QPM Incruse Ellipta 62.5 mcg/actuation Blister With Device 1 inh INHALATION QAM levothyroxine [Synthroid] 100 mcg Tablet 100 mcg PO QAM cyanocobalamin (vitamin B-12) 500 mcg Tablet 500 mcg PO DAILY cholecalciferol (vitamin D3) [Vitamin D3] 50 mcg (2,000 unit) Tablet 50 mcg PO DAILY celecoxib 200 mg Capsule 200 mg PO QAM Discontinued oxycodone 5 mg Tablet 5 - 10 mg PO .Q4h-6h MDD 6 PRN (Reason: pain) Qty: 30 0RF Patient Comments: does not use Rx Instructions: ongoing therapy, Dr. Hewitt supervising Discharge Orders: Discharge Order (Routine); Ordered 03/15/23 Ordered By: Bartolo Raymond Admission Data Admit Date/Time: 03/13/23 17:32 Attending Provider: Tramaine Hewitt Admit Provider: Tramaine Hewitt Primary Care Provider: Srini Rubio Other Providers: Alek Navarro Other Interventions: Discharge Summary Assessment (RN) Last Done: 03/15/23 13:23
--- NOTE | 2023-03-20 10:45 | Coding Query ---
CODING QUERY To promote full compliance with coding requirements relating to patient care, provider participation is requested in all cases of vice president of contracts uncertainty. Please assist us with the question(s) below: Coding Question(s): Please specify below, regarding Postoperative Seroma, right knee drainage, draining sinus tract status post knee injury and 8 weeks status post right total knee arthroplasty: ( ) Complication of total knee arthroplasty ( x ) Due to Trauma, not complication ( ) Other: Please Specify Physician's Response(s): Thank you Amanda Ko Principal Diagnosis: "that condition established after study, to be chiefly responsible for occasioning the admission of the patient to the hospital for care." Co-Existing Principal Diagnosis: "when two or more diagnoses equally meet the criteria for principal diagnosis as determined by the circumstances of admission, diagnostic work up, and/or therapy provided, and the Alphabetic Index, Tabular List, or another coding guideline does not provide sequencing direction, any one of the diagnoses may be sequenced first." "When the physician has documented what appears to be a current diagnosis in the body of the record, but has not included the diagnosis in the final diagnostic statement, the physician should be asked whether the diagnosis should be added." (Source Coding Clinic 2 QTR90. p3-4) IVONNE
== END 2023-03-15 13:52 | disposition home or self-care (01) | DRG 488 ==
LOC: ASU 12:16 → 3E 17:32